=== PATIENT | female | born 1950 | race Caucasian/White ===

== ENCOUNTER → 2018-03-23 15:51 | Outpatient (CLI) | payer MEDICARE, OTHER, SELFPAY ==
--- NOTE | 2018-03-23 15:55 | BI_ITS ---
MAMMOGRAPHY - BILATERAL SCREENING REASON FOR EXAM: Female, 67 years old. Routine annual screening examination. PERTINENT HISTORY: Mother with breast cancer. Remote left excisional breast biopsy. TECHNIQUE: Digital bilateral breast tahir (3D mammographic acquisition) in the CC and MLO projections. 2-D mediolateral oblique (MLO) and craniocaudad (CC) views of both breasts were obtained. CAD: Full Field Digital Mammography with Computer Added Detection was performed. COMPARISON: Comparison is made with prior outside examination dated May 22, 2016. FINDINGS: Breast Composition: The breasts are heterogeneously dense, which may obscure small masses. There are no dominant masses or suspicious calcifications. Stable deformity of the right areola. Stable appearance of the small bilateral axillary lymph nodes. No other significant abnormalities are identified. There has been no significant change since the prior study. BI/SCREENING MAMM (CAD), BILAT IMPRESSION: Stable bilateral screening mammogram. Yearly follow-up mammogram recommended. (A) ASSESSMENT CATEGORY: BIRADS Category 2: Benign. A letter regarding these results will be sent to the patient by the facility within 30 days. Approximately 10% of breast cancers are not detected by mammography. A normal mammogram should not delay biopsy of a clinically suspicious abnormality. [id number] Electronically Signed: Sher Dhaliwal MD at 9:20 EDT Tel [phone], Service support ,
== END ==
PROVIDERS: Visit Provider Nurse Practitioner Women's Health
DX: Z12.31 Encounter for screening mammogram for malignant neoplasm of breast (principal)
CPT/HCPCS: 77063; 77067

== ENCOUNTER → 2019-03-31 13:21 | Outpatient (CLI) | payer MEDICARE, SELFPAY ==
[2019-03-01 10:42] VITALS: BMI 29.0
--- NOTE | 2019-03-31 13:23 | BI_ITS ---
MAMMOGRAPHY - BILATERAL SCREENING REASON FOR EXAM: Female, 68 years old. Routine annual screening examination. PERTINENT HISTORY: Mother with breast cancer. Remote left excisional breast biopsy. TECHNIQUE: Digital bilateral breast ruiz (3D mammographic acquisition) in the CC and MLO projections. 2-D mediolateral oblique (MLO) and craniocaudad (CC) views of both breasts were obtained. CAD: Full Field Digital Mammography with Computer Added Detection was performed. COMPARISON: Comparison is made with prior study dated March 23, 2018. FINDINGS: Breast Composition: The breasts are heterogeneously dense, which may obscure small masses. There are no dominant masses or suspicious calcifications. Stable appearance of the small bilateral axillary lymph nodes. No other significant abnormalities are identified. There has been no significant change since the prior study. BI/SCREEN MAMM (CAD) W/RUIZ BILAT IMPRESSION: Stable bilateral screening mammogram. Yearly follow-up mammogram recommended. (A) ASSESSMENT CATEGORY: BIRADS Category 2: Benign. A letter regarding these results will be sent to the patient by the facility within 30 days. Approximately 10% of breast cancers are not detected by mammography. A normal mammogram should not delay biopsy of a clinically suspicious abnormality. [id number] Electronically Signed: Sher Dhaliwal, at 14:53 EDT , Service support ,
== END ==
PROVIDERS: Referring Provider Nurse Practitioner Women's Health; Visit Provider Nurse Practitioner Women's Health
DX: Z12.31 Encounter for screening mammogram for malignant neoplasm of breast (principal)
CPT/HCPCS: 77063; 77067

== ENCOUNTER → 2019-05-09 16:00 | Outpatient (CLI) | payer MEDICARE, OTHER, SELFPAY ==
[2019-03-31 13:54] VITALS: BMI 29.0
--- NOTE | 2019-05-09 16:04 | BD_ITS ---
STUDY: DUAL ENERGY X-RAY ABSORPTIOMETRY / DXA REASON FOR EXAM: Female, 68 years old. The patient is postmenopausal. Loss of height. TECHNIQUE: Bone Mineral Density (BMD) measurements of lumbar spine and bilateral hips were obtained. COMPARISON: None. FINDINGS: Lumbar Spine (L1-L4): g/cm2 (1.127) / T-score (-0.6) / Z-score (1.0) Findings are suggestive of normal bone density with a low fracture risk. Left Femur Total: g/cm2 (0.977) / T-score (-0.2) / Z-score (1.0) Left Femoral Neck: g/cm2 (0.989) / T-score (-0.3) / Z-score (1.2) Right Femur Total: g/cm2 (0.944) / T-score (-0.5) / Z-score (0.8) Right Femoral Neck: g/cm2 (1.015) / T-score (0.2) / Z-score (1.4) BD/Dexa Bone Density Study IMPRESSION: The patient is considered normal as outlined below according to World Woo Organization (WHO) criteria with a low fracture risk. Reference Information: The T-score is the number of standard deviations above or below the standard which is normal for young adults at their peak bone mineral density. The World Health Organization (WHO) interprets the T-scores as follows: Above -1 Normal bone density Between -1 and -2.5 Osteopenia Equal to / or below -2.5 Osteoporosis As a practical clinical guideline, osteopenia may be graded as follows: Mild -1 through -1.5 Moderate -1.6 through -2.0 Severe -2.1 through -2.4 The Z-score is the number of standard deviations above or below age-matched controls. A Z-score of less than -1.5 would be considered abnormal. References: 1. NIH Osteoporosis and Related Bone Diseases http://www.osteo.org 2. International Society for Clinical Densitometry http://www.iscd.org 3. National Osteoporosis Foundation http://www.nof.org Electronically Signed: Sher Dhaliwal, at 15:42 EST , Service support ,
== END ==
PROVIDERS: Referring Provider Nurse Practitioner Women's Health; Visit Provider Nurse Practitioner Women's Health
DX: Z78.0 Asymptomatic menopausal state (principal)
CPT/HCPCS: 77080

== ENCOUNTER 2020-08-20 03:40 | Outpatient (RCR) | payer MEDICARE, OTHER, SELFPAY ==
[2019-03-31 13:54] VITALS: BMI 29.0
[2020-08-20] MEDS: COVID-19 VACC, MRNA(PFIZER)/PF 30 MCG/0.3 ML SYRINGE IM (16:58)
[2020-09-10] MEDS: COVID-19 VACC, MRNA(PFIZER)/PF 30 MCG/0.3 ML SYRINGE IM (16:42)
== END 2020-11-19 23:59 ==
LOC: IMMUN 03:40
PROVIDERS: Visit Provider Family Medicine
DX: Z23 Encounter for immunization (principal)
CPT/HCPCS: 0001A; 0002A; 91300

== ENCOUNTER → 2021-02-24 13:33 | Outpatient (CLI) | payer MEDICARE, OTHER, SELFPAY ==
--- NOTE | 2021-02-24 13:36 | BI_ITS ---
MAMMOGRAPHY - BILATERAL SCREENING REASON FOR EXAM: Female, 70 years old. Routine annual screening examination. PERTINENT HISTORY: Mother with breast cancer. Remote left excisional breast biopsy. TECHNIQUE: Digital bilateral breast ruiz (3D mammographic acquisition) in the CC and MLO projections. 2-D mediolateral oblique (MLO) and craniocaudad (CC) views of both breasts were obtained. CAD: Full Field Digital Mammography with Computer Added Detection was performed. COMPARISON: Comparison is made with prior study 03/31/2019 and 03/23/2018. FINDINGS: Breast Composition: The breasts are heterogeneously dense, which may obscure small masses. There are no dominant masses or suspicious calcifications. Stable small benign-appearing bilateral axillary lymph nodes. No other significant abnormalities are identified. There has been no significant change since the prior study. BI/SCRN MAMM (CAD)W/RUIZ BILAT IMPRESSION: Stable bilateral screening mammogram. Yearly follow-up mammogram recommended. (A) ASSESSMENT CATEGORY: BIRADS Category 2: Benign. A letter regarding these results will be sent to the patient by the facility within 30 days. Approximately 10% of breast cancers are not detected by mammography. A normal mammogram should not delay biopsy of a clinically suspicious abnormality. [id number] Electronically Signed: Sher Dhaliwal MD at 15:10 EDT , Service support ,
== END ==
PROVIDERS: Referring Provider Nurse Practitioner Women's Health; Visit Provider Nurse Practitioner Women's Health
DX: Z12.31 Encounter for screening mammogram for malignant neoplasm of breast (principal); Z80.3 Family history of malignant neoplasm of breast
CPT/HCPCS: 77063; 77067

== ENCOUNTER → 2022-04-22 | Outpatient (CLI) | payer MEDICARE, OTHER, SELFPAY ==
--- NOTE | 2022-04-22 15:27 | BI_ITS ---
MAMMOGRAPHY - BILATERAL SCREENING REASON FOR EXAM: Female, 71 years old. Routine annual screening examination. PERTINENT HISTORY: Mother with breast cancer. Remote left excisional breast biopsy. TECHNIQUE: Digital bilateral breast ruiz (3D mammographic acquisition) in the CC and MLO projections. 2-D mediolateral oblique (MLO) and craniocaudad (CC) views of both breasts were obtained. CAD: Full Field Digital Mammography with Computer Added Detection was performed. COMPARISON: Comparison is made with prior study dated 02/24/2021 and 03/31/2019. FINDINGS: Breast Composition: The breasts are heterogeneously dense, which may obscure small masses. There are no dominant masses or suspicious calcifications. Stable small benign appearing bilateral axillary lymph nodes. No other significant abnormalities are identified. There has been no significant change since the prior study. BI/SCRN MAMM (CAD)W/RUIZ BILAT IMPRESSION: Stable bilateral screening mammogram. Yearly follow-up mammogram recommended. (A) ASSESSMENT CATEGORY: BIRADS Category 2: Benign. A letter regarding these results will be sent to the patient by the facility within 30 days. Approximately 10% of breast cancers are not detected by mammography. A normal mammogram should not delay biopsy of a clinically suspicious abnormality. [id number] Electronically Signed: Sher Dhaliwal MD at 8:07 EST ,
== END | disposition home or self-care (01) ==
LOC: OPBI 15:26
PROVIDERS: Referring Provider Nurse Practitioner Women's Health; Visit Provider Nurse Practitioner Women's Health
DX: Z12.31 Encounter for screening mammogram for malignant neoplasm of breast (principal); Z80.3 Family history of malignant neoplasm of breast
CPT/HCPCS: 77063; 77067

== ENCOUNTER → 2022-04-27 | Outpatient (CLI) | payer MEDICARE, OTHER, SELFPAY ==
[2022-04-27 15:29] LABS: Absolute Lymphocyte Count 0.95 X10^3/uL (0.83-4.51); Absolute Neutrophil Count 2.8 X10^3/uL (2.0-7.7); Basophil# 0.04 X10^3/uL; Basophil% 0.9 % (0-1); Eosinophil# 0.19 X10^3/uL; Eosinophils% 4.4 % (0-5); Hematocrit 44.8 % (37-47); Hemoglobin 14.6 g/dL (12.0-15.0); Lymphocyte # 0.95 X10^3/ul (0.83-4.51); Lymphocyte % 22.1 % (19-41); Mean Corp Hgb Conc 32.6 g/dL (32-36); Mean Corpuscular Volume 104.4 fL (81-99); Mean Platelet Vol. 10.2 fl (6.2-12.0); Monocyte# 0.36 X10^3/uL; Monocyte% 8.4 % (0-10); NRBC Flagged by Analyzer 0 % (0-5); Neutrophil # 2.75 X10^3/uL (2.7-7.7); Platelet Count 208 K/mm3 (150-450); RBC Distribution Width CV 13.9 % (11.6-14.6); Red Blood Count 4.29 M/mm3 (4.2-5.4); White Blood Count 4.3 K/mm3 (4.4-11.0)
[2022-04-27 15:52] LABS: AST(SGOT) 71 U/L (15-37); Alanine Aminotransfer ALT/SGPT 66 U/L (13-56); Albumin, Serum 3.8 g/dL (3.2-5.0); Alkaline Phosphatase 84 U/L (45-117); Anion Gap 10 (5-15); BUN 9 mg/dL (7-18); Calcium,Total 9.2 mg/dL (8.5-10.1); Chloride 107 mmol/L (98-107); Cholesterol 249 mg/dL (200); EST Glomerular Filtration Rate 105 mL/min (>60); Est Glom Filt Rate - Afr Amer 128 mL/min (>60); Globulin 3.9 g/dL (2.2-4.2); Glucose 75 mg/dL (74-106); High Density Lipoprotein 61 mg/dL; Protein, Total 7.7 g/dL (6.4-8.2); Sodium Level 144 mmol/L (136-145); Thyroid Stim Hormone (TSH) 1.51 uIU/mL (0.358-3.74); Triglycerides 245 mg/dL; Very Low Density Lipoprotein 49 mg/dL (5-40)
== END | disposition home or self-care (01) ==
LOC: BIMLAB 14:17
PROVIDERS: PCP Internal Medicine; Referring Provider Internal Medicine; Visit Provider Internal Medicine
DX: I10 Essential (primary) hypertension (principal); F41.8 Other specified anxiety disorders
CPT/HCPCS: 36415; 80053; 80061; 84443; 85025

== ENCOUNTER 2022-07-06 04:39 | Emergency (ER) | payer MEDICARE, OTHER, SELFPAY ==
[2022-07-06 04:39] VITALS: BP 165/92; PULSE 81; RESP 18; TEMP 36.1; O2SAT 98; BMI 29.7
--- NOTE | 2022-07-06 04:47 | CT_ITS ---
STUDY: CT ABDOMEN AND PELVIS WITHOUT CONTRAST REASON FOR EXAM: Female, 71 years old. Pain RADIATION DOSAGE (If Supplied By Facility): CTDIvol = ( 8.57 ) mGy, DLP = ( 428.26 ) mGycm TECHNIQUE: Transaxial images were obtained from the dome of the diaphragm to the symphysis pubis without oral contrast, and without intravenous contrast. Sagittal and coronal images were reconstructed. Individualized dose optimization techniques were used for this CT. COMPARISON: None. FINDINGS: The visualized lung bases are unremarkable. The visualized portions of the heart are within normal limits. Normal liver. Normal gallbladder and extrahepatic biliary system. Normal spleen. Normal pancreas. Normal bilateral adrenal glands. Normal right kidney. Normal left kidney. Normal visualized stomach. Normal small intestine. Diverticulosis involving the distal descending and sigmoid colon. There is wall thickening and pericolonic inflammatory changes involving an 8 cm segment of the distal descending and proximal sigmoid colon compatible with acute diverticulitis, coronal images 55 through 68.. The appendix is visualized and appears normal. There is scattered atherosclerotic calcification of the abdominal aorta, without a demonstrated aneurysm. Normal inferior vena cava. Normal retroperitoneum. Intra-abdominal free air. Normal urinary bladder. Uterus grossly normal. No adnexal mass is seen. Normal abdominal wall. Normal osseous structures. CT/Abdomen/Pelvis without Cont IMPRESSION: Acute diverticulitis involving the distal descending and proximal sigmoid colon. No intra-abdominal free air. Recommend continued follow-up to exclude an underlying mass. N.B. : The above Results were Read Back by Patrick Desouza MD to Miguel Burk MD, and understanding confirmed on 07/06/2022 05:53:14 (ET). Electronically Signed: Patrick Desouza MD at 5:59 EST Reading Location ID and State: [id number] / , Service support ,
--- NOTE | 2022-07-06 04:48 | ED.VIS.GI ---
HPI HPI - GI History of Present Illness Chief Complaint: Abd Pain Informant: patient Narrative Narrative: I had a history of waxing waning lower abdominal pain. Pain increased in the evening. Pain more in the left lower quadrant. No abdominal surgeries. Decreased bowel movements. Nonbloody. No fevers. No nausea or vomiting. Colonoscopy 7 years ago with polypectomy. Denies history of diverticulitis. Denies urinary symptoms. Denies any fevers. States symptoms worsen was walking around or laying on the left side. Prior similar symptoms: No PFSH PFSH Medical History (Updated 07/06/22 @ 06:[address] Miguel Burk, DO) Abnormal mammogram Home Medications calcium carbonate 600 mg calcium (1,500 mg) tablet (Calcium) 600 mg PO BID 03/23/18 [History Last Taken Unknown] estradiol 0.01% (0.1 mg/gram) vaginal cream (Estrace) See Rx Instructions vaginal .COMPLEX #42.5 grams 03/31/19 [Rx Last Taken Unknown] dupilumab 200 mg/1.14 mL subcutaneous pen injector (Dupixent) 200 mg subcut Q2W 02/11/21 [History Last Taken Unknown] triamcinolone acetonide 0.025 % topical cream 1 applic topical DAILY 02/11/21 [History Last Taken Unknown] blood pressure monitor #1 ea 04/27/22 [Rx Last Taken Unknown] hydroxyzine HCl 10 mg tablet 10 mg PO TID PRN anxiey #20 tabs 04/27/22 [Rx Last Taken Unknown] atorvastatin 10 mg tablet (Lipitor) 10 mg PO QHS #90 tabs 05/25/22 [Rx Last Taken Unknown] lisinopril 5 mg tablet 5 mg PO DAILY #90 tabs 06/26/22 [Rx Last Taken Unknown] cefdinir 300 mg capsule 300 mg PO BID #19 caps 07/06/22 [Rx Last Taken Unknown] hydrocodone-acetaminophen 5-325mg 5mg-325mg 1 tab PO Q6H PRN pain 3 days #12 tabs 07/06/22 [Rx Last Taken Unknown] metronidazole 500 mg tablet 500 mg PO TID #29 tabs 07/06/22 [Rx Last Taken Unknown] Allergy/AdvReac Type Severity Reaction Status Date / Time No Known Allergies Allergy Verified 07/06/22 04:42 Family History Mother Breast cancer Father Cancer liver Brother Skin cancer Surgical History H/O breast biopsy Social History adopted: No household members: none housing: house number of children: 1 current occupational status: retired current occupation: worked for a [employer] current occupational exposures/hazards: No pets and animals: Yes history of recent travel: Yes out of country: Yes Smoking Status: Former smoker quit date: 06/14/01 pack-years: 32 Electronic Cigarette Use: not used second hand exposure: No alcohol intake: current alcohol intake frequency: a few times a week substance use type: does not use caffeine: No what type of physical activity do you participate in: none seatbelt use: always do you feel safe at home: Yes additional social history: Single ROS ROS ED Constitutional Constitutional ED: Denies chills, fever(s) or sweats Eyes Eyes: Denies change in vision ENT ENT ED: Denies dysphagia or sore throat Cardiovascular Cardiovascular: Denies chest pain, leg edema, palpitations or racing heartbeat Respiratory/Chest Respiratory/Chest: Denies cough, dyspnea or dyspnea on exertion Gastrointestinal Gastrointestinal: Reports abdominal pain; Denies diarrhea, nausea or vomiting Genitourinary Genitourinary ED: Denies dysuria, hematuria or urinary frequency Musculoskeletal Musculoskeletal: Denies back pain, extremity pain or neck pain Integumentary Denies rash or wounds Neurologic Neurologic: Denies headache(s), paresthesias or weakness EXAM Physical Exam Const Vital Signs: 07/06/22 04:39 Temperature 96.9 F L Temperature Source Temporal Pulse Rate 81 Respiratory Rate 18 Blood Pressure 165/92 H Blood Pressure Mean 116 Pulse Ox 98 Oxygen Delivery Method Room Air Positive well nourished and well developed General Appearance ED: well developed and NAD HEENT Reports moist mucous membranes normocephalic and atraumatic Eyes PERRL, EOMs intact bilaterally and conjunctivae normal General Eye ED: Yes normal appearance of both eyes Neck no lymphadenopathy and supple General: Negative for tenderness Chest Wall Chest: Negative for tenderness Resp normal respiratory effort and normal air movement Effort and Inspection: symmetric chest movement; Negative for respiratory distress Cardio regular rate, regular rhythm and no murmurs Peripheral Pulses: pulses 2+ throughout GI normal to inspection, nondistended, normoactive bowel sounds GI Narrative: Minimal tenderness lower abdomen, no specific reproducible location. No guarding or rebound. No rash in the area. Palpation: Negative for guarding or rebound tenderness present Back/Spine no CVA tenderness and no thoracic nor lumbar tenderness Extremity normal to inspection General Extremety ED: Negative for edema or tenderness General Extremity: Negative for edema Neuro oriented x3 and no sensory deficits noted Sensorium / Orientation: awake and alert Skin no rashes or lesions noted and no wounds MDM MDM MDM Narrative Medical decision making narrative: Persistent waxing waning lower abdominal pain. Nonsurgical abdomen on exam. Differential likely diverticulitis versus shingles pain, lower clinical suspicion for any volvulus or appendicitis. Abdominal mass in the differential however no palpation of any firm masses. Patient declines any medications abdominal labs ordered fluids. Will order CT scan abdomen pelvis for further evaluation. 0630: Abdominal laboratory reviewed by myself normal white count at 10 normal lipase and liver enzymes creatinine 0.82. CT scan abdomen pelvis in discussion with radiologist and reviewed by myself distal descending sigmoid diverticulitis. There is no microperforation or free air. Patient clinically stable on reevaluation nonsurgical abdomen. She is started on Omnicef and Flagyl. She does not drink alcohol. She would like pain medicines at night to help her sleep. Additional prescription for [place] for which she is tolerated in the past. Strict return precautions otherwise she is given follow-up with GI as an outpatient. All questions were answered. Lab Data Attestation: I reviewed the patient's lab results. Labs: Laboratory Results - last 24 hr 07/06/22 07/06/22 04:50 04:50 WBC 10.0 RBC 4.68 Hgb 14.5 Hct 44.4 MCV 94.9 MCH 31.0 MCHC 32.7 RDW Std Deviation 44.7 H RDW Coeff of [place] 12.7 Plt Count 251 MPV 10.6 Immature Gran % (Auto) 0.400 Neut % (Auto) 75.3 H Lymph % (Auto) 13.4 L [place] % (Auto) 8.6 Eos % (Auto) 2.0 Baso % (Auto) 0.3 Absolute Neuts (auto) 7.5 Absolute Lymphs (auto) 1.34 Nucleated RBC % 0 Sodium 138 Potassium 3.7 Chloride 105 Carbon Dioxide 24.0 Anion Gap 9 BUN 8 Creatinine 0.82 Estim Creat Clear Calc 58.26 Est GFR (MDRD) Af Amer 88 Est GFR (MDRD) Non-Af 73 BUN/Creatinine Ratio 9.7 L Glucose 117 H Calcium 9.4 Total Bilirubin 1.10 H AST 7 L ALT 15 Alkaline Phosphatase 80 Total Protein 7.4 Albumin 3.4 Globulin 4.0 Albumin/Globulin Ratio 0.8 L Lipase 215 Radiography Diagnostic Testing: Clinical Impression(s) from Imaging Studies Abdomen/Pelvis CT 07/06/22 04:47 IMPRESSION: Acute diverticulitis involving the distal descending and proximal sigmoid colon. No intra-abdominal free air. Recommend continued follow-up to exclude an underlying mass. N.B. : The above Results were Read Back by Patrick Desouza MD to Miguel Burk MD, and understanding confirmed on 07/06/2022 05:53:14 (ET). Electronically Signed: Patrick Desouza MD at 5:59 EST Reading Location ID and State: [place] / , Service support , ADDENDUM: 07/06/22 0606 IMPRESSION: Acute diverticulitis involving the distal descending and proximal sigmoid colon. No intra-abdominal free air. Recommend continued follow-up to exclude an underlying mass. N.B. : The above Results were Read Back by Patrick Desouza MD to Miguel Burk MD, and understanding confirmed on 07/06/2022 05:53:14 (ET). Electronically Signed: Patrick Desouza MD at 5:59 EST Reading Location ID and State: [id number] / , Service support , Discharge Plan Triage Chief Complaint: Abd Pain ED Provider: Miguel Burk Dx/Rx/DC Orders Clinical Impression: Sigmoid diverticulitis, Abdominal pain, LLQ Instructions: Diverticulitis Dc Prescriptions: New hydrocodone-acetaminophen 5-325 mg tablet 1 tab PO Q6H PRN (Reason: pain) 3 Days Qty: 12 0RF metronidazole 500 mg tablet 500 mg PO TID Qty: 29 0RF cefdinir 300 mg capsule 300 mg PO BID Qty: 19 0RF No Action calcium carbonate [Calcium 600] 600 mg calcium (1,500 mg) tablet 600 mg PO BID estradiol [Estrace] 0.01 % (0.1 mg/gram) cream See Rx Instructions Vaginal .COMPLEX Qty: 42.5 2RF Dose Instruction: pea sized amount VAGINAL every other day X 4 weeks then twice a week; Rx Instructions: pea sized amount VAGINA twice a week; triamcinolone acetonide 0.025 % cream 1 applic topical DAILY Dupixent Pen 200 mg/1.14 mL pen injector 200 mg subcut Q2W hydroxyzine HCl 10 mg tablet 10 mg PO TID PRN (Reason: anxiey) Qty: 20 0RF (DME) blood pressure monitor Kit See Rx Instructions .Route Qty: 1 0RF Rx Instructions: As directed atorvastatin [Lipitor] 10 mg tablet 10 mg PO QHS Qty: 90 1RF lisinopril 5 mg tablet 5 mg PO DAILY Qty: 90 1RF Primary Care Provider: Hermila Macario Referrals: Hermila Macario MD [Primary Care Provider] - 1 Week Hudson Wade DO [Med Staff - Active Staff] - 1-2 Weeks Activity Restrictions/Additional Instructions: Distal colon and sigmoid diverticulitis no perforations. Labs are stable. Take medications as prescribed and finish the antibiotics. Return if worsening symptoms otherwise follow-up with GI for outpatient colonoscopy in the near future. Disposition Disposition: Home, Self Care
[2022-07-06 04:58] LABS: Absolute Lymphocyte Count 1.34 X10^3/uL (0.83-4.51); Absolute Neutrophil Count 7.5 X10^3/uL (2.0-7.7); Basophil# 0.03 X10^3/uL; Basophil% 0.3 % (0-1); Hematocrit 44.4 % (37-47); Hemoglobin 14.5 g/dL (12.0-15.0); Lymphocyte # 1.34 X10^3/ul (0.83-4.51); Lymphocyte % 13.4 % (19-41); Mean Corp Hgb Conc 32.7 g/dL (32-36); Mean Corpuscular Volume 94.9 fL (81-99); Mean Platelet Vol. 10.6 fl (6.2-12.0); Monocyte# 0.86 X10^3/uL; Monocyte% 8.6 % (0-10); NRBC Flagged by Analyzer 0 % (0-5); Neutrophil # 7.52 X10^3/uL (2.7-7.7); Neutrophil % 75.3 % (47-70); Platelet Count 251 K/mm3 (150-450); RBC Distribution Width CV 12.7 % (11.6-14.6); RBC Distribution Width SD 44.7 fl (35.1-43.9); Red Blood Count 4.68 M/mm3 (4.2-5.4)
[2022-07-06] MEDS: 0.9% Normal Saline 1,000 ML 125 ML IV (05:00)
[2022-07-06 05:23] LABS: ALB/GLOB Ratio 0.8 RATIO (0.9-2.4); AST(SGOT) 7 U/L (15-37); Alanine Aminotransfer ALT/SGPT 15 U/L (13-56); Albumin, Serum 3.4 g/dL (3.2-5.0); Alkaline Phosphatase 80 U/L (45-117); Anion Gap 9 (5-15); BUN 8 mg/dL (7-18); BUN/Creat Ratio 9.7 RATIO (10-20); Calcium,Total 9.4 mg/dL (8.5-10.1); Chloride 105 mmol/L (98-107); Creatinine, Serum 0.82 mg/dL (0.55-1.02); EST Glomerular Filtration Rate 73 mL/min (>60); Est Glom Filt Rate - Afr Amer 88 mL/min (>60); Estimated Creatinine Clearance 58.26 ml/min; Glucose 117 mg/dL (74-106); Lipase 215 U/L (73-393); Potassium 3.7 mmol/L (3.5-5.1); Protein, Total 7.4 g/dL (6.4-8.2); Sodium Level 138 mmol/L (136-145)
[2022-07-06] MEDS: metroNIDAZOLE 500 MG Tablet PO (06:34)
[2022-07-06] MEDS: Cefdinir 300 MG Capsule PO (06:35)
[2022-07-06 06:38] VITALS: BP 136/89; PULSE 84; RESP 15; O2SAT 95
== END 2022-07-06 06:41 | disposition home or self-care (01) ==
PROVIDERS: Emergency Provider Emergency Medicine; PCP Internal Medicine; Visit Provider Emergency Medicine
DX: K57.32 Diverticulitis of large intestine without perforation or abscess without bleeding (principal); R10.32 Left lower quadrant pain; Z87.891 Personal history of nicotine dependence
CPT/HCPCS: 74176; 80053; 83690; 85025; 96360; 96361; 99283; J7030

== ENCOUNTER 2022-07-10 09:56 | Emergency (ER) | payer MEDICARE, OTHER, SELFPAY ==
[2022-07-10 09:57] VITALS: BP 125/104; PULSE 98; RESP 14; TEMP 36.4; O2SAT 98; BMI 31.6
--- NOTE | 2022-07-10 10:14 | ED.VIS.GI ---
HPI HPI - GI History of Present Illness Chief Complaint: Diarrhea Informant: patient Abdominal Pain/Flank Pain Onset: Days Context: Gradual Onset Timing: Continuous Nausea/Vomiting/Emesis GI Symptom: Negative for Nausea or Vomiting Diarrhea/Melena/Hematochezia GI Symptom: Positive for Diarrhea; Negative for Melena or Hematochezia Associated Symptoms Associated Symptoms: Negative for Dysuria, Frequency or Hematuria Narrative Narrative: Patient'[id number] female history of diverticulosis and hypertension. On Wednesday was diagnosed here with diverticulitis by CAT scan. Had unremarkable labs. Was started on Omnicef and Flagyl. Patient has had significant diarrhea the last several days. Almost every 20 minutes. No melena. No fever. Nausea and vomiting resolved earlier in the week. Denies any further fevers. No melena or hematemesis. States she has not had much of an appetite but is drinking fluids. States the pain in her left lower quadrant has resolved. Prior similar symptoms: No Recent Illness/Hospitalization: No PFSH [facility] Medical History (Updated 07/10/22 @ 10:[address] Octavio Garcia MD) Abnormal mammogram Home Medications calcium carbonate 600 mg calcium (1,500 mg) tablet (Calcium) 600 mg PO BID 03/23/18 [History Last Taken Unknown] estradiol 0.01% (0.1 mg/gram) vaginal cream (Estrace) See Rx Instructions vaginal .COMPLEX #42.5 grams 03/31/19 [Rx Last Taken Unknown] dupilumab 200 mg/1.14 mL subcutaneous pen injector (Dupixent) 200 mg subcut Q2W 02/11/21 [History Last Taken Unknown] triamcinolone acetonide 0.025 % topical cream 1 applic topical DAILY 02/11/21 [History Last Taken Unknown] blood pressure monitor #1 ea 04/27/22 [Rx Last Taken Unknown] hydroxyzine HCl 10 mg tablet 10 mg PO TID PRN anxiey #20 tabs 04/27/22 [Rx Last Taken Unknown] atorvastatin 10 mg tablet (Lipitor) 10 mg PO QHS #90 tabs 05/25/22 [Rx Last Taken Unknown] lisinopril 5 mg tablet 5 mg PO DAILY #90 tabs 06/26/22 [Rx Last Taken Unknown] cefdinir 300 mg capsule 300 mg PO BID #19 caps 07/06/22 [Rx Last Taken Unknown] hydrocodone-acetaminophen 5-325mg 5mg-325mg 1 tab PO Q6H PRN pain 3 days #12 tabs 07/06/22 [Rx Last Taken Unknown] metronidazole 500 mg tablet 500 mg PO TID #29 tabs 07/06/22 [Rx Last Taken Unknown] Allergy/AdvReac Type Severity Reaction Status Date / Time No Known Allergies Allergy Verified 07/10/22 09:57 Family History Mother Breast cancer Father Cancer liver Brother Skin cancer Surgical History H/O breast biopsy Social History adopted: No household members: none housing: house number of children: 1 current occupational status: 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 Review of Systems ROS Unobtainable: Denies due to encephalopathy Constitutional Constitutional ED: Denies chills or fever(s) ENT ENT ED: Denies ear pain Cardiovascular Cardiovascular: Denies chest pain Respiratory/Chest Respiratory/Chest: Denies cough or dyspnea Gastrointestinal Gastrointestinal: Reports diarrhea; Denies abdominal pain, constipation, melena, nausea or vomiting Genitourinary Genitourinary ED: Denies dysuria or hematuria Integumentary Denies abscess Neurologic Neurologic: Denies headache(s) Psychiatric Psychiatric: Denies anxiety Endocrine Endocrinology: Denies polydipsia Hematologic/Lymphatic Hematologic/Lymphatic: Denies easy bleeding Allergic/Immunologic Allergic/Immunologic ED: Denies mouth swelling or tongue swelling EXAM Physical Exam Narrative Exam Narrative: Well-appearing 71-year-old female. Vital signs are stable and afebrile. H EENT exam unremarkable. Neck nontender. Lungs clear to auscultation. Heart regular rhythm rate about 98 no murmur. Abdomen soft nontender normal bowel sounds no peritoneal signs. Moving all 4 extremities. Calves are nontender with edema. Neurologically she is awake and alert with no focal motor deficits. Clinically patient looks well. Const Vital Signs: 07/10/22 09:57 Temperature 97.6 F L Temperature Source Temporal Pulse Rate 98 Respiratory Rate 14 Blood Pressure 125/104 H Blood Pressure Mean 111 Pulse Ox 98 Oxygen Delivery Method Room Air Positive well nourished and well developed; Negative for cachectic, contractures or unkempt General Appearance ED: well developed and NAD; Negative for unkempt, cachectic, contractures or pallor Nutritional Appearance: Negative for cachectic HEENT Reports moist mucous membranes normocephalic and atraumatic; Negative for trauma or tenderness Eyes PERRL and EOMs intact bilaterally General Eye ED: Negative for pale conjunctiva or scleral icterus Neck No no lymphadenopathy, supple and no JVD General: Negative for tenderness Lymph Lymphatic: Negative for other Resp normal respiratory effort and clear to auscultation bilaterally Effort and Inspection: Negative for respiratory distress Auscultation: Negative for rales, rhonchi or wheezes Cardio regular rate, regular rhythm, S1 normal heart sound, S2 normal heart sound and no murmurs Rate: Negative for bradycardia or tachycardic Rhythm: Negative for abnormal rhythm GI non-tender, non-distended and no masses Inspection: Negative for abdominal distention Palpation: soft; Negative for tender, guarding or rigid Back/Spine no CVA tenderness General Back: Negative for CVA tenderness Cervical Spine: Negative for cervical spine tenderness Thoracic Spine / Upper Back: Negative for thoracic spinal tenderness Lumbar Spine / Lower Back: Negative for lumbar spinal tenderness Coccyx: Negative for other Extremity full ROM General Extremety ED: Negative for edema or tenderness General Extremity: Negative for edema Neuro CN's II-XII intact bilaterally and moves all extremities Sensorium / Orientation: alert, oriented to person, oriented to place and oriented to time; Negative for orientation impaired, confused, lethargic or stuporous Motor Exam: strength 5/5 throughout Psych mental status grossly normal and thought process normal Appearance: Negative for unkempt Attitude: No agitated Mood & Affect: Negative for depressed or anxious Skin no wounds General Skin Exam: Negative for jaundice or pallor Lesions: no lesions and No lesion noted Rashes: no rashes and No rashes noted Trauma: Negative for abrasion MDM MDM MDM Narrative Medical decision making narrative: 71-year-old female diagnosed with diverticulitis on Wednesday. Has been on Omnicef and Flagyl and is improving. She has had diarrhea the last several days. Clinically I think this is most likely just a side effect of the antibiotics and being treated for diverticulitis. He clinically looks well. Should be treated with IV fluids. I will obtain screening labs of CBC and chemistry. We will obtain a C. difficile if she has a bowel movement here. She is only had 1 today. Clinically I do not think this is C. difficile. Repeat exam at 12:16 PM patient doing well. She has had no bowel movement or diarrhea the entire time she is here. She does not feel like she can have one at this time. Hence we will not send a stool sample. We discussed her labs. Her potassium should improve as the diarrhea resolves. She will continue her current antibiotics for her diverticulitis. Follow-up with her primary care physician. Return if worse. She was treated with a liter of fluid here. Lab Data Attestation: I reviewed the patient's lab results. Lab results narrative: CBC normal white count of 6.9. H&H of 13.8 and 42. Platelets 215. Electrolytes show potassium of 3.1 consistent with her diarrhea. Gap of 16. Normal BUN and creatinine 13 and 0.7 glucose of 77. These are consistent with her prior labs. I did review her old records. Labs: Laboratory Results - last 24 hr 07/10/22 07/10/22 10:30 10:30 WBC 6.9 RBC 4.46 Hgb 13.8 Hct 42.1 MCV 94.4 MCH 30.9 MCHC 32.8 RDW Std Deviation 45.0 H RDW Coeff of [place] 13.0 Plt Count 215 MPV 10.3 Immature Gran % (Auto) 0.400 Neut % (Auto) 80.8 H Lymph % (Auto) 4.6 L [place] % (Auto) 7.1 Eos % (Auto) 6.8 H Baso % (Auto) 0.3 Absolute Neuts (auto) 5.6 Absolute Lymphs (auto) 0.32 L Nucleated RBC % 0 Differential Comment SCANNED Sodium 136 Potassium 3.1 L Chloride 98 Carbon Dioxide 22.0 Anion Gap 16 H BUN 13 Creatinine 0.70 Estim Creat Clear Calc 47.78 Est GFR (MDRD) Af Amer 106 Est GFR (MDRD) Non-Af 88 BUN/Creatinine Ratio 18.6 Glucose 77 Calcium 8.9 Discharge Plan Triage Chief Complaint: Diarrhea ED Provider: Octavio Garcia Dx/Rx/DC Orders Clinical Impression: Diarrhea, History of diverticulitis Instructions: Treating Diarrhea, ED Diverticulitis Prescriptions: No Action calcium carbonate [Calcium 600] 600 mg calcium (1,500 mg) tablet 600 mg PO BID estradiol [Estrace] 0.01 % (0.1 mg/gram) cream See Rx Instructions Vaginal .COMPLEX Qty: 42.5 2RF Dose Instruction: pea sized amount VAGINAL every other day X 4 weeks then twice a week; Rx Instructions: pea sized amount VAGINA twice a week; triamcinolone acetonide 0.025 % cream 1 applic topical DAILY Dupixent Pen 200 mg/1.14 mL pen injector 200 mg subcut Q2W hydroxyzine HCl 10 mg tablet 10 mg PO TID PRN (Reason: anxiey) Qty: 20 0RF (DME) blood pressure monitor Kit See Rx Instructions .Route Qty: 1 0RF Rx Instructions: As directed atorvastatin [Lipitor] 10 mg tablet 10 mg PO QHS Qty: 90 1RF hydrocodone-acetaminophen 5-325 mg tablet 1 tab PO Q6H PRN (Reason: pain) 3 Days Qty: 12 0RF metronidazole 500 mg tablet 500 mg PO TID Qty: 29 0RF cefdinir 300 mg capsule 300 mg PO BID Qty: 19 0RF lisinopril 5 mg tablet 5 mg PO DAILY Qty: 90 1RF Primary Care Provider: Hermila Macario Referrals: Hermila Macario MD [Primary Care Provider] - 3-5 Days if not improving Activity Restrictions/Additional Instructions: Plenty of fluids and rest. [id number] probiotic and/or yogurt to help replace the normal bacteria in your colon. Follow-up with your doctor if not improving. Continue and finish the antibiotics. Your potassium should improve as you start eating more. If you have continued diarrhea it will need to be rechecked. It was just below normal today at 3.1. Disposition Disposition: Home, Self Care
[2022-07-10 10:34] LABS: Absolute Lymphocyte Count 0.32 X10^3/uL (0.83-4.51); Absolute Neutrophil Count 5.6 X10^3/uL (2.0-7.7); Basophil# 0.02 X10^3/uL; Basophil% 0.3 % (0-1); Eosinophil# 0.47 X10^3/uL; Eosinophils% 6.8 % (0-5); Hematocrit 42.1 % (37-47); Hemoglobin 13.8 g/dL (12.0-15.0); Lymphocyte # 0.32 X10^3/ul (0.83-4.51); Lymphocyte % 4.6 % (19-41); Mean Corp Hgb Conc 32.8 g/dL (32-36); Mean Corpuscular Hgb 30.9 pg (27.0-32.0); Mean Corpuscular Volume 94.4 fL (81-99); Mean Platelet Vol. 10.3 fl (6.2-12.0); Monocyte# 0.49 X10^3/uL; Monocyte% 7.1 % (0-10); NRBC Flagged by Analyzer 0 % (0-5); Neutrophil # 5.56 X10^3/uL (2.7-7.7); Neutrophil % 80.8 % (47-70); POSITIVE DIFFERENTIAL YES; Platelet Count 215 K/mm3 (150-450); Red Blood Count 4.46 M/mm3 (4.2-5.4); White Blood Count 6.9 K/mm3 (4.4-11.0)
[2022-07-10] MEDS: 0.9% Normal Saline 1,000 ML 1000 ML IV (10:35)
[2022-07-10 10:38] LABS: Differential Indicated SCAN CRITERIA MET
[2022-07-10 10:52] LABS: Anion Gap 16 (5-15); BUN 13 mg/dL (7-18); BUN/Creat Ratio 18.6 RATIO (10-20); Calcium,Total 8.9 mg/dL (8.5-10.1); Chloride 98 mmol/L (98-107); EST Glomerular Filtration Rate 88 mL/min (>60); Est Glom Filt Rate - Afr Amer 106 mL/min (>60); Estimated Creatinine Clearance 47.78 ml/min; Glucose 77 mg/dL (74-106); Potassium 3.1 mmol/L (3.5-5.1); Sodium Level 136 mmol/L (136-145)
[2022-07-10 11:09] LABS: Differential Comment SCANNED
[2022-07-10 12:29] VITALS: BP 127/83; PULSE 64; RESP 15; O2SAT 95
== END 2022-07-10 12:30 | disposition home or self-care (01) ==
PROVIDERS: Emergency Provider Emergency Medicine; PCP Internal Medicine; Visit Provider Emergency Medicine
DX: R19.7 Diarrhea, unspecified (principal); I10 Essential (primary) hypertension; Z79.2 Long term (current) use of antibiotics; Z87.891 Personal history of nicotine dependence; K57.92 Diverticulitis of intestine, part unspecified, without perforation or abscess without bleeding
CPT/HCPCS: 80048; 85025; 96360; 99283; J7030; A4216

== ENCOUNTER → 2022-09-23 | Outpatient (CLI) | payer MEDICARE, OTHER, SELFPAY ==
[2022-09-23 16:50] LABS: ALB/GLOB Ratio 1.2 RATIO (0.9-2.4); AST(SGOT) 12 U/L (15-37); Alanine Aminotransfer ALT/SGPT 14 U/L (13-56); Albumin, Serum 3.6 g/dL (3.2-5.0); Alkaline Phosphatase 70 U/L (45-117); Anion Gap 3 (5-15); BUN 12 mg/dL (7-18); BUN/Creat Ratio 16.7 RATIO (10-20); Calcium,Total 9.4 mg/dL (8.5-10.1); Chloride 111 mmol/L (98-107); Cholesterol 136 mg/dL (200); Creatinine, Serum 0.72 mg/dL (0.55-1.02); EST Glomerular Filtration Rate 85 mL/min (>60); Est Glom Filt Rate - Afr Amer 103 mL/min (>60); Globulin 2.9 g/dL (2.2-4.2); Glucose 107 mg/dL (74-106); High Density Lipoprotein 40 mg/dL; Potassium 3.7 mmol/L (3.5-5.1); Protein, Total 6.5 g/dL (6.4-8.2); Sodium Level 143 mmol/L (136-145); Triglycerides 133 mg/dL; Very Low Density Lipoprotein 27 mg/dL (5-40)
== END | disposition home or self-care (01) ==
LOC: BIMLAB 14:50
PROVIDERS: PCP Internal Medicine; Referring Provider Internal Medicine; Visit Provider Internal Medicine
DX: I10 Essential (primary) hypertension (principal); E78.2 Mixed hyperlipidemia; R19.7 Diarrhea, unspecified; R74.8 Abnormal levels of other serum enzymes
CPT/HCPCS: 36415; 80053; 80061

== ENCOUNTER → 2022-09-28 | Outpatient (CLI) | payer MEDICARE, OTHER, SELFPAY ==
[2022-09-30 14:09] LABS: Giardia Lamblia, Stool EIA Negative (Negative)
[2022-10-02 15:08] LABS: Calprotectin, Stool 600 ug/g (0-120)
== END | disposition home or self-care (01) ==
LOC: LABSPEC 14:47
PROVIDERS: PCP Internal Medicine; Visit Provider Internal Medicine
DX: R19.7 Diarrhea, unspecified (principal); K58.9 Irritable bowel syndrome, unspecified
CPT/HCPCS: 83993; 87329; 87493; 87506

== ENCOUNTER → 2022-10-20 | Outpatient (CLI) | payer MEDICARE, OTHER, SELFPAY | END | disposition home or self-care (01) | LOC: LABSPEC 10:40 | PROVIDERS: PCP Internal Medicine; Visit Provider Internal Medicine | DX: R19.7 Diarrhea, unspecified (principal) | CPT/HCPCS: 87493 ==

== ENCOUNTER 2023-01-11 05:19 | Day surgery (SDC) | payer MEDICARE, OTHER, SELFPAY ==
[2023-01-11] VITALS (7 sets, daily range): BP systolic 77–122; BP diastolic 43–82; PULSE 58–75; RESP 16–18; TEMP 36.1–36.7; O2SAT 96–100; BMI 26.4
--- NOTE | 2023-01-11 | COLBX_PTH ---
PATIENT: REJI GARRETT LOC: EN U#:[id number] AGE/SX: 72/F ROOM: RE01/11/[address]: Dr. Hudson Wade DO : 1950 BED: DIS: 01/11/2023 SPEC #: [id number] RECD: 01/11/23 10:52 STATUS: UMAIR KALEB #: [id number] ELOISE: 01/11/23 00:[address]: Hudson Wade DEPT: SURGICAL PATHOLOGY RECD BY: Aryan Fox ENTERED: 01/11/23 10:53 SP TYPE: COLON BX IBETH DR: Dr. Hermila Macario MD Tissues: A - COLON BIOPSY B - COLON BIOPSY Procedures: Surgery Specimen Level IV HEADER OPERATION: Colonoscopy (MAC) with biopsies PRE-OP DIAGNOSIS: C. difficile colitis, diverticula of colon TISSUE SUBMITTED: A - Hepatic flexure, b - Random colon in the sigmoid MICROSCOPIC DIAGNOSIS A. Hepatic flexure, biopsy: A fragment of colonic mucosa, no pathologic diagnosis. B. Sigmoid colon, random biopsy: Fragments of colonic mucosa, no pathologic diagnosis. MARCIANO:asiya 01/12/2023 MICROSCOPIC DESCRIPTION Slides are reviewed. GROSS DESCRIPTION A - Received in fixative is one container labeled with the patient's name and designated hepatic flexure. The specimen consists of one irregular fragment of light rodriguez soft tissue that measures 0.6 x 0.2 x 0.1 cm. The specimen is totally submitted in one cassette. B - Received in fixative is one container labeled with the patient's name and designated random colon in the sigmoid. The specimen consists of multiple irregular fragments of light rodriguez soft tissue that in aggregate measure 1.5 x 0.5 x 0.1 cm. The specimen is totally submitted in one cassette. / MARCIANO:asiya 01/11/2023 TC:4 CPT: 08478 x2
[2023-01-11] MEDS: Lactated Ringers 1,000 ML 15 ML IV (05:58)
--- NOTE | 2023-01-11 06:25 | PCM.HP.BLA ---
History and Physical Date of Admission: 01/11/23 Chief Complaint: C diff Details: REJI GARRETT, is a 72 F who presents to the office today to establish with Gastroenterology for recurrent C difficile colitis. Diarrhea started after starting antibiotics for diverticulitis in 06/2022. This was her only bout of diverticulitis. Diarrhea resolved with treatment of C diff in 09/2022, then returned 3 days after completing antibiotic. Now taking vancomycin qid x 10 days, started it two days ago, diarrhea persists. Still poor appetite so not eating much, is losing weight. Dificid was cost prohibitive. She hasn't had any abd pain since the treatment for diverticulitis. No melena or hematochezia. She is tired. No nausea, vomiting, heartburn, dysphagia. ED visit in 06/[address], treated with omnicef and flagyl. Had presented with abd pain. 06/2022 CT: acute diverticulitis in distal descending and proximal sigmoid colon 09/2022 +C diff, neg enteric pathogens, neg giardia 10/2022 +C diff Colonoscopy approx 7 yrs ago, had polyps, was done at [facility] Quit drinking alcohol last year ROS Const Constitutional: No fatigue, fever(s), headache(s), weight change (loss), sleep problems, abnormal sleep pattern or change in appetite ENT ENT: No headache(s), difficulty swallowing, hoarseness or sore throat Resp Respiratory: No cough, hemoptysis or shortness of breath Cardio Cardiology: No chest pain at rest or generalized swelling Gastro GI: Positive for change in bowel habits and diarrhea; No abdominal pain, belching, bloating, change in stool character, coffee ground emesis, constipation, cramping, heartburn, difficulty swallowing, feeling full early, excessive flatus, incontinent of stools, Vomiting blood/hematemesis, Blood in stool, loose stools, Black,tarry stools, nausea/dyspepsia, pain with swallowing or vomiting Musc Musculoskeletal: No joint pain, back pain, joint swelling, numbness or tingling Skin Skin: No itchy eyes or rash Neuro Neurology: No behavioral changes, confusion, headache(s), numbness or tingling Psych Psychiatric: No abnormal sleep pattern, No anxiety, No behavioral changes, No change in appetite, No confusion and No depression Endo Endocrine: No cold intolerance, fatigue, heat intolerance, increased thirst/drinking or weight change (loss) Aller/Imm Allergy/Immunologic: No food intolerance or itchy eyes Mark/Lymp Hematologic/Lymphatic: No easy bleeding, easy bruising or enlarged lymph nodes Exam Const General: cooperative, healthy appearing and comfortable Nutritional Appearance: average body habitus Orientation: alert, awake and oriented x3 HENMT Head: normal to inspection Eyes Sclera: sclerae normal Resp Effort & Inspection: normal respiratory effort GI Inspection: normal to inspection Palpation: soft, no hepatosplenomegaly, no masses and nontender Skin General: no rashes or lesions noted and no jaundice Quality Reporting Tobacco Screening ([facility] 138) Smoking Status: Former smoker Assessment and Plan Assessment and Plan (1) C. difficile colitis: Status: Acute Plan: C diff colitis since being treated with antibiotics for diverticulitis in 06/2022, that was first time she had diverticultitis On vancomycin qid x 10 days for second round of antibiotic for recurrent C diff, will call her in 2 wks so see how she is doing, may need taper of vanco or course of dificid (would talk to drug rep) Start probiotic Will schedule her for colonoscopy considering hx of polyps, last scope 7 yrs ago (2) Diverticula of colon: Status: Acute Plan: I have examined the patient and the H&P has been reviewed. There are no clinical changes since date of exam.
--- NOTE | 2023-01-11 07:10 | OP.COLON_ITS ---
Patient Name: Erica Fong Procedure Date: 01/11/2023 6:36 AM Date of : 1950 Age: 72 Procedure: Colonoscopy Indications: Screening for colorectal malignant neoplasm Providers: Hudson Wade DO Referring MD: Hudson Wade DO Medicines: Monitored Anesthesia Care Patient Profile: This is a 72 year old female. Refer to note in patient chart for documentation of history and physical. Last Colonoscopy: date unknown. Unable to locate last colonoscopy report. Complications: No immediate complications. Procedure: Pre-Anesthesia Assessment: - Prior to the procedure, a History and Physical was performed, and patient medications and allergies were reviewed. The patient is competent. The risks and benefits of the procedure and the sedation options and risks were discussed with the patient. All questions were answered and informed consent was obtained. Patient identification and proposed procedure were verified by the physician in the pre-procedure area. Mental Status Examination: alert and oriented. Airway Examination: normal oropharyngeal airway and neck mobility. Respiratory Examination: clear to auscultation. CV Examination: normal. Prophylactic Antibiotics: The patient does not require prophylactic antibiotics. Prior Anticoagulants: The patient has taken no previous anticoagulant or antiplatelet agents. ASA Grade Assessment: II - A patient with mild systemic disease. After reviewing the risks and benefits, the patient was deemed in satisfactory condition to undergo the procedure. The anesthesia plan was to use monitored anesthesia care (MAC). Immediately prior to administration of medications, the patient was re-assessed for adequacy to receive sedatives. The heart rate, respiratory rate, oxygen saturations, blood pressure, adequacy of pulmonary ventilation, and response to care were monitored throughout the procedure. The physical status of the patient was re-assessed after the procedure. After I obtained informed consent, the scope was passed under direct vision. Throughout the procedure, the patient's blood pressure, pulse, and oxygen saturations were monitored continuously. The Colonoscope was introduced through the anus and advanced to the terminal ileum. The colonoscopy was performed without difficulty. The patient tolerated the procedure well. The quality of the bowel preparation was good. Scope In: 6:45:56 AM Scope Withdrawal Time 0 hours 9 minutes 36 seconds Scope Out: 6:58:39 AM Total Procedure Duration Time 0 hours 12 minutes 43 seconds Findings: The perianal and digital rectal examinations were normal. A 5 mm polyp was found in the hepatic flexure. The polyp was sessile. The polyp was removed with a cold snare. Resection and retrieval were complete. Verification of patient identification for the specimen was done. Estimated blood loss was minimal. An area of mildly congested mucosa was found in the sigmoid colon. Biopsies were taken with a cold forceps for histology. Verification of patient identification for the specimen was done. Estimated blood loss was minimal. Multiple small and large-mouthed diverticula were found in the recto-sigmoid colon, sigmoid colon and descending colon. Impression: - One 5 mm polyp at the hepatic flexure, removed with a cold snare. Resected and retrieved. - Congested mucosa in the sigmoid colon. Biopsied. - Diverticulosis in the recto-sigmoid colon, in the sigmoid colon and in the descending colon. Recommendation: - Discharge patient to home. - Resume previous diet. - Continue present medications. - Await pathology results. - Repeat colonoscopy in 5 years for surveillance. Procedure Code(s): --- Professional --- 53763, Colonoscopy, flexible; with removal of tumor(s), polyp(s), or other lesion(s) by snare technique 29130, 59, Colonoscopy, flexible; with biopsy, single or multiple CPT copyright 2017 [employer]. All rights reserved. The codes documented in this report are preliminary and upon automotive sales specialist review may be revised to meet current compliance requirements. Hudson Wade DO 01/11/2023 7:09:40 AM This report has been signed electronically. Number of Addenda: 0 Note Initiated On: 01/11/2023 6:36 AM
--- NOTE | 2023-01-11 07:10 | OP.CCLET_ITS ---
01/11/2023 Hermila Macario Md Re : Colonoscopy procedure for Erica Fong Dear Amirah This procedure was performed on Wednesday, January 11, 2023. My impressions and recommendations are as follows: Impressions : - One 5 mm polyp at the hepatic flexure, removed with a cold snare. Resected and retrieved. - Congested mucosa in the sigmoid colon. Biopsied. - Diverticulosis in the recto-sigmoid colon, in the sigmoid colon and in the descending colon. Recommendations : - Discharge patient to home. - Resume previous diet. - Continue present medications. - Await pathology results. - Repeat colonoscopy in 5 years for surveillance. My findings are described in the full procedure note, which is enclosed. If I can be of further assistance, please feel free to contact me at . Sincerely, Hudson Wade, 01/11/2023 7:09:40 AM This report has been signed electronically.
== END 2023-01-11 08:15 | disposition home or self-care (01) ==
LOC: EN 05:21 → AC 05:22
PROVIDERS: PCP Internal Medicine; Referring Provider Internal Medicine; Visit Provider Internal Medicine Gastroenterology
PROC: 0DJD8ZZ Inspection of Lower Intestinal Tract, Via Natural or Artificial Opening Endoscopic (ICD-10-PCS; CPT 45378; principal; 2023-01-11 06:25)
DX: Z12.11 Encounter for screening for malignant neoplasm of colon (principal); A04.71 Enterocolitis due to Clostridium difficile, recurrent; K57.30 Diverticulosis of large intestine without perforation or abscess without bleeding; K63.5 Polyp of colon; Z87.891 Personal history of nicotine dependence
CPT/HCPCS: 45385; 45380; 88305; J7120; J2405

== ENCOUNTER → 2023-03-17 | Outpatient (CLI) | payer MEDICARE, OTHER, SELFPAY | END | disposition home or self-care (01) | LOC: SL 12:53 | PROVIDERS: PCP Internal Medicine; Referring Provider Internal Medicine; Visit Provider Internal Medicine | DX: G47.10 Hypersomnia, unspecified (principal) | CPT/HCPCS: 95806 ==

== ENCOUNTER → 2023-04-28 | Outpatient (CLI) | payer MEDICARE, OTHER, SELFPAY ==
[2023-04-28 15:19] LABS: Absolute Lymphocyte Count 1.79 X10^3/uL (0.83-4.51); Absolute Neutrophil Count 2.6 X10^3/uL (2.0-7.7); Basophil# 0.04 X10^3/uL; Basophil% 0.8 % (0-1); Eosinophil# 0.17 X10^3/uL; Eosinophils% 3.3 % (0-5); Hematocrit 45.1 % (37-47); Hemoglobin 13.9 g/dL (12.0-15.0); Lymphocyte # 1.79 X10^3/ul (0.83-4.51); Lymphocyte % 34.8 % (19-41); Mean Corp Hgb Conc 30.8 g/dL (32-36); Mean Corpuscular Hgb 28.4 pg (27.0-32.0); Mean Platelet Vol. 10.5 fl (6.2-12.0); Monocyte% 9.7 % (0-10); NRBC Flagged by Analyzer 0 % (0-5); Neutrophil # 2.63 X10^3/uL (2.7-7.7); Neutrophil % 51.2 % (47-70); Platelet Count 222 K/mm3 (150-450); RBC Distribution Width CV 14.5 % (11.6-14.6); RBC Distribution Width SD 49.5 fl (35.1-43.9); White Blood Count 5.1 K/mm3 (4.4-11.0)
[2023-04-28 15:54] LABS: Erythrocyte Sedimentation Rate 6 mm/hr (0-30)
[2023-04-28 16:04] LABS: ALB/GLOB Ratio 1.1 RATIO (0.9-2.4); AST(SGOT) 16 U/L (15-37); Alanine Aminotransfer ALT/SGPT 31 U/L (13-56); Albumin, Serum 3.8 g/dL (3.2-5.0); Alkaline Phosphatase 85 U/L (45-117); Anion Gap 7 (5-15); BUN 14 mg/dL (7-18); Calcium,Total 9.1 mg/dL (8.5-10.1); Chloride 107 mmol/L (98-107); Creatinine, Serum 0.82 mg/dL (0.55-1.02); EST Glomerular Filtration Rate 73 mL/min (>60); Est Glom Filt Rate - Afr Amer 88 mL/min (>60); Globulin 3.4 g/dL (2.2-4.2); Glucose 94 mg/dL (74-106); Protein, Total 7.2 g/dL (6.4-8.2); Sodium Level 143 mmol/L (136-145)
== END | disposition home or self-care (01) ==
LOC: BIMLAB 14:30
PROVIDERS: PCP Internal Medicine; Referring Provider Internal Medicine; Visit Provider Internal Medicine
DX: G47.9 Sleep disorder, unspecified (principal); R51.9 Headache, unspecified
CPT/HCPCS: 36415; 80053; 85025; 85652

== ENCOUNTER → 2023-05-18 | Outpatient (CLI) | payer MEDICARE, OTHER, SELFPAY ==
--- NOTE | 2023-05-18 15:11 | BI_ITS ---
MAMMOGRAPHY - BILATERAL SCREENING REASON FOR EXAM: Female, 72 years old. Routine annual screening examination. PERTINENT HISTORY: Mother with breast cancer. Remote left excisional breast biopsy. TECHNIQUE: Digital bilateral breast ruiz (3D mammographic acquisition) in the CC and MLO projections. 2-D mediolateral oblique (MLO) and craniocaudad (CC) views of both breasts were obtained. CAD: Full Field Digital Mammography with Computer Added Detection was performed. COMPARISON: Comparison is made with prior study April 22, 2022 and February 24, 2021. FINDINGS: Breast Composition: The breasts are heterogeneously dense, which may obscure small masses. There are no dominant masses or suspicious calcifications. Stable small benign-appearing bilateral axillary lymph nodes. No other significant abnormalities are identified. There has been no significant change since the prior study. BI/SCRN MAMM (CAD)W/RUIZ BILAT IMPRESSION: Stable bilateral screening mammogram. Yearly follow-up mammogram recommended. (A) ASSESSMENT CATEGORY: BIRADS Category 2: Benign. A letter regarding these results will be sent to the patient by the facility within 30 days. Approximately 10% of breast cancers are not detected by mammography. A normal mammogram should not delay biopsy of a clinically suspicious abnormality. [id number] Electronically Signed: Sher Dhaliwal MD at 8:52 EST ,
--- NOTE | 2023-05-18 15:29 | BD_ITS ---
STUDY: DUAL ENERGY X-RAY ABSORPTIOMETRY / DXA REASON FOR EXAM: Female, 72 years old. Postmenopausal TECHNIQUE: Bone Mineral Density (BMD) measurements of lumbar spine and bilateral hips were obtained. COMPARISON: Comparison is made with prior study dated May 09, 2019. FINDINGS: Lumbar Spine (L1-L4): g/cm2 (0.876) / T-score (-1.6) / Z-score (0.6) Findings are suggestive of osteopenia with a moderate fracture risk. Left Femur Total: g/cm2 (0.825) / T-score (-1.0) / Z-score (0.6) Left Femoral Neck: g/cm2 (0.707) / T-score (-1.3) / Z-score (0.6) Right Femur Total: g/cm2 (0.770) / T-score (-1.4) / Z-score (0.1) Right Femoral Neck: g/cm2 (0.720) / T-score (-1.2) / Z-score (0.7) The T-Scores on the most recent prior examination were: Lumbar Spine (L1-L4): There has been worsening of bone density since the previous examination. Left Femur Total: which represents a worsening of 9.4%. Right Femur Total: which represents a worsening of 12.5%. BD/Dexa Bone Density Study IMPRESSION: The patient is considered osteopenic as outlined below according to World Woo Organization (WHO) criteria with a moderate fracture risk. There has been worsening of bone density since the previous examination. Reference Information: The T-score is the number of standard deviations above or below the standard which is normal for young adults at their peak bone mineral density. The World Health Organization (WHO) interprets the T-scores as follows: Above -1 Normal bone density Between -1 and -2.5 Osteopenia Equal to / or below -2.5 Osteoporosis As a practical clinical guideline, osteopenia may be graded as follows: Mild -1 through -1.5 Moderate -1.6 through -2.0 Severe -2.1 through -2.4 The Z-score is the number of standard deviations above or below age-matched controls. A Z-score of less than -1.5 would be considered abnormal. References: 1. NIH Osteoporosis and Related Bone Diseases www osteo.org 2. International Society for Clinical Densitometry www iscd.org 3. National Osteoporosis Foundation www nof.org Electronically Signed: Sher Dhaliwal MD at 12:23 EST ,
== END | disposition home or self-care (01) ==
LOC: OPBI 15:11
PROVIDERS: PCP Internal Medicine; Referring Provider Nurse Practitioner Women's Health; Visit Provider Nurse Practitioner Women's Health
DX: Z12.31 Encounter for screening mammogram for malignant neoplasm of breast (principal); Z78.0 Asymptomatic menopausal state
CPT/HCPCS: 77063; 77067; 77080

== ENCOUNTER → 2023-10-27 | Outpatient (CLI) | payer MEDICARE, OTHER, SELFPAY ==
[2023-10-27 16:56] LABS: Absolute Lymphocyte Count 2.12 X10^3/uL (0.83-4.51); Absolute Neutrophil Count 2.8 X10^3/uL (2.0-7.7); Basophil# 0.06 X10^3/uL; Basophil% 1.1 % (0-1); Eosinophil# 0.15 X10^3/uL; Eosinophils% 2.7 % (0-5); Hematocrit 43.8 % (37-47); Hemoglobin 13.6 g/dL (12.0-15.0); Lymphocyte # 2.12 X10^3/ul (0.83-4.51); Lymphocyte % 37.6 % (19-41); Mean Corp Hgb Conc 31.1 g/dL (32-36); Mean Corpuscular Volume 90.3 fL (81-99); Mean Platelet Vol. 10.9 fl (6.2-12.0); Monocyte# 0.48 X10^3/uL; Monocyte% 8.5 % (0-10); NRBC Flagged by Analyzer 0 % (0-5); Neutrophil # 2.82 X10^3/uL (2.7-7.7); Neutrophil % 49.9 % (47-70); Platelet Count 211 K/mm3 (150-450); RBC Distribution Width CV 14.7 % (11.6-14.6); RBC Distribution Width SD 48.8 fl (35.1-43.9); Red Blood Count 4.85 M/mm3 (4.2-5.4); White Blood Count 5.6 K/mm3 (4.4-11.0)
[2023-10-27 17:11] LABS: ALB/GLOB Ratio 1.1 RATIO (0.9-2.4); AST(SGOT) 14 U/L (15-37); Alanine Aminotransfer ALT/SGPT 22 U/L (13-56); Albumin, Serum 3.8 g/dL (3.2-5.0); Alkaline Phosphatase 75 U/L (45-117); Anion Gap 4 (5-15); BUN 13 mg/dL (7-18); Calcium,Total 9.3 mg/dL (8.5-10.1); Chloride 110 mmol/L (98-107); Cholesterol 118 mg/dL (200); Creatinine, Serum 0.76 mg/dL (0.55-1.02); EST Glomerular Filtration Rate 79 mL/min (>60); Est Glom Filt Rate - Afr Amer 96 mL/min (>60); Globulin 3.4 g/dL (2.2-4.2); Glucose 90 mg/dL (74-106); High Density Lipoprotein 51 mg/dL; Potassium 4.1 mmol/L (3.5-5.1); Protein, Total 7.2 g/dL (6.4-8.2); Sodium Level 141 mmol/L (136-145); Triglycerides 101 mg/dL; Very Low Density Lipoprotein 20 mg/dL (5-40)
== END | disposition home or self-care (01) ==
LOC: BIMLAB 14:48
PROVIDERS: PCP Internal Medicine; Referring Provider Internal Medicine; Visit Provider Internal Medicine
DX: E78.2 Mixed hyperlipidemia (principal)
CPT/HCPCS: 36415; 80053; 80061; 85025

== ENCOUNTER → 2024-05-22 | Outpatient (CLI) | payer MEDICARE, OTHER, SELFPAY ==
--- NOTE | 2024-05-22 15:24 | BI_ITS ---
MAMMOGRAPHY - BILATERAL SCREENING REASON FOR EXAM: Female, 73 years old. Routine annual screening examination. PERTINENT HISTORY: Mother with breast cancer. Remote left excisional breast biopsy. TECHNIQUE: Digital bilateral breast ruiz (3D mammographic acquisition) in the CC and MLO projections. 2-D mediolateral oblique (MLO) and craniocaudad (CC) views of both breasts were obtained. CAD: Full Field Digital Mammography with Computer Added Detection was performed. COMPARISON: Comparison is made with prior study May 18, 2023 and April 22, 2022. FINDINGS: Breast Composition: The breasts are heterogeneously dense, which may obscure small masses. There are no dominant masses or suspicious calcifications. Stable small bilateral axillary lymph nodes. No other significant abnormalities are identified. There has been no significant change since the prior study. BI/SCRN MAMM (CAD)W/RUIZ BILAT IMPRESSION: Stable bilateral screening mammogram. Yearly follow-up mammogram recommended. (A) ASSESSMENT CATEGORY: BIRADS Category 2: Benign. A letter regarding these results will be sent to the patient by the facility within 30 days. Approximately 10% of breast cancers are not detected by mammography. A normal mammogram should not delay biopsy of a clinically suspicious abnormality. [id number] Electronically Signed: Sher Dhaliwal MD at 8:39 EST ,
== END | disposition home or self-care (01) ==
LOC: OPBI 15:22
PROVIDERS: PCP Internal Medicine; Referring Provider Nurse Practitioner Women's Health; Visit Provider Nurse Practitioner Women's Health
DX: Z12.31 Encounter for screening mammogram for malignant neoplasm of breast (principal)
CPT/HCPCS: 77063; 77067

== ENCOUNTER 2025-02-20 12:46 | Emergency (ER) | payer MEDICARE, OTHER, SELFPAY ==
[2025-02-20 12:47] VITALS: BP 172/71; PULSE 57; RESP 20; TEMP 37.1; O2SAT 100; BMI 28.5
--- NOTE | 2025-02-20 14:46 | CT_ITS ---
PROCEDURE: BRAIN/HEAD WITHOUT CONTRAST 02/20/2025 REASON FOR EXAM: PAIN 1 day history of headaches. Hypertension. TECHNIQUE: Procedure Code: CTBR Modality: CT Procedure: BRAIN/HEAD WITHOUT CONTRAST Coronal and Sagittal reconstruction series were provided. One or more dose reduction techniques were used (e.g., Automated exposure control, adjustment of the mA and/or kV according to patient size, use of iterative reconstruction technique. RADIATION DOSE SUMMARY: CTDlvol: 44.99 mGy DLP: 796.11 mGycm COMPARISON: None FINDINGS: Brain: Tiny hypodensities in the basal ganglia bilaterally suggestive of old lacunar infarcts. CSF Spaces: Mild generalized cerebral atrophy Sinuses/Mastoids: There is dense opacification of the sphenoid sinus in keeping with a chronic sphenoid sinusitis. Partial opacification of the left ethmoid sinus. Mucosal thickening along the inferior aspect of the left maxillary sinus. 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 Dense opacification of the sphenoid sinus as well as partial opacification of t he left ethmoid sinus. Mucosal thickening along the inferior aspect of the left maxillary sinus. Reading Location: MAIN
--- NOTE | 2025-02-20 14:50 | EX.ED.VIS.HA ---
HPI History of Present Illness Chief Complaint: Headache Informant: patient Narrative Narrative: Patient is a 74-year-old female with history of hypertension and tension headaches presenting with worsening headache. Patient states she gets frequent headaches worse over the past year. She saw her PCP about it and thought they were tension headaches and suggested soft tissue massage to her neck. She has over the past 3 weeks she has been having worsening headache in both frequency and duration. She states she developed headache last night while watching TV. Started in her frontal area and then started to radiate to the back of her head. Denies any sudden intense onset (thunderclap headache). Does have some associated photophobia. Denies any nausea or vomiting or blurred vision. States has some minimal pain in her upper neck with this. Denies any fever or chills. Today I called her primary care office who recommend taking ibuprofen and Tylenol. She has had 800 mg of ibuprofen x 2 as well as 1000 g of Tylenol with no relief which is what prompted her to come to the emergency room. She denies any numbness or tingling. Any weakness with walking. No rash. No other complaints or concerns at this time [facility] Medical History History of Clostridium difficile infection Wears glasses Wears dentures Anxiety Arthritis High cholesterol History of diverticulitis Former smoker Hypertension Abnormal mammogram Home Medications ?Medication ?Instructions ?Recorded ?Last Taken ?Type calcium carbonate (Calcium 600) 600 mg PO BID 03/23/18 Unknown History Lactobacillus acidophilus 250 500 mmu cells PO DAILY 01/05/23 Unknown History million cell capsule (Probiotic Acidophilus) dupilumab 200 mg/1.14 mL 300 mg subcut Q2W 04/28/23 Unknown History subcutaneous pen injector (Dupixent) hydroxyzine HCl 10 mg tablet 10 mg PO TID PRN anxiey #20 tabs 11/24/23 Unknown Rx atorvastatin 10 mg tablet (Lipitor) 10 mg PO QHS #90 tabs 10/09/24 Unknown Rx losartan 25 mg tablet 25 mg PO DAILY #90 tabs 10/09/24 Unknown Rx trazodone 50 mg tablet 25 mg (1/2 x 50 mg) PO QHS #45 tabs 10/09/24 Unknown Rx alendronate 70 mg tablet (Fosamax) 70 mg PO QWEEK #4 tabs 01/26/25 Unknown Rx estradiol 0.01% (0.1 mg/gram) See Rx Instructions vaginal 01/29/25 Unknown Rx vaginal cream (Estrace) .COMPLEX #42.5 grams CBD Oral (INFORMATIONAL USE 02/20/25 Unknown History ONLY-PT USES ORAL CBD) cetirizine 10 mg tablet (Zyrtec) 10 mg PO DAILY #14 tabs 02/20/25 Unknown Rx fluticasone propionate 50 1 spray intranasal DAILY #16 grams 02/20/25 Unknown Rx mcg/actuation nasal spray,suspension (Flonase Allergy Relief) Allergy/AdvReac Type Severity Reaction Status Date / Time No Known Allergies Allergy Verified 02/20/25 12:48 Family History Mother Breast cancer Father Cancer liver Brother Skin cancer Surgical History Hx of colonoscopy Hx of tooth extraction H/O breast biopsy Social History adopted: No household members: none housing: house number of children: 1 current occupational status: retired 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 current occupational exposures/hazards: No pets and animals: Yes history of recent travel: Yes out of country: Yes Smoking Status: Former smoker quit date: 06/14/01 pack-years: 32 Electronic Cigarette Use: not used second hand exposure: No alcohol intake: current alcohol intake frequency: holidays/special occasions only substance use type: does not use caffeine: No what type of physical activity do you participate in: none seatbelt use: always do you feel safe at home: Yes additional social history: Single ROS ROS ED Constitutional Constitutional ED: Denies chills Eyes Eyes: Reports other Details: Photophobia ; Denies blurry vision or change in vision Cardiovascular Cardiovascular: Denies chest pain Respiratory/Chest Respiratory/Chest: Denies cough or dyspnea Gastrointestinal Gastrointestinal: Denies abdominal pain, nausea or vomiting Musculoskeletal Musculoskeletal: Denies arthralgias or myalgias Integumentary Denies rash Neurologic Neurologic: Reports headache(s); Denies paresthesias or weakness Psychiatric Psychiatric: Denies anxiety Hematologic/Lymphatic Hematologic/Lymphatic: Denies easy bleeding or easy bruising EXAM Physical Exam Const Vital Signs: 02/20/25 12:47 02/20/25 16:37 Temperature 98.7 F 97.8 F Temperature Source Oral Pulse Rate 57 L 58 L Respiratory Rate 20 H 14 Blood Pressure 172/71 H 158/74 H Blood Pressure Mean 104 102 Pulse Ox 100 94 Oxygen Delivery Method Room Air Positive well nourished and well developed General Appearance ED: well developed and NAD HEENT Reports normocephalic, TM's clear and moist mucous membranes atraumatic Tympanic Membrane ED: Yes TM's clear Neck supple and no meningeal signs Neck Narrative: No midline tenderness, normal range of motion of the neck Resp normal respiratory effort and clear to auscultation bilaterally Cardio regular rate and regular rhythm GI non-distended Extremity normal to inspection General Extremety ED: Negative for edema or tenderness General Extremity: Negative for edema Neuro oriented x3, CN's II-XII intact bilaterally and no sensory deficits noted Qamar Coma Scale: document GCS findings Spontaneous Obeys Commands Oriented 15 Sensorium / Orientation: awake and alert Speech: speech normal Psych mental status grossly normal Skin Lesions: no lesions Rashes: no rashes MDM MDM MDM Narrative Medical decision making narrative: Patient evaluated for worsening headache. But having worsening action the past year but since that she been bad the past 3 weeks. She has normal neurologic exam. Blood pressure mildly elevated 172/71 which is nonspecific. Does have a history of hypertension. Will continue to monitor. Differential includes tension headache, sinus headache, space-occupying lesion. Headache not consistent with subarachnoid hemorrhage. Physical exam not consistent with meningitis. She denies any head trauma low suspicion for subdural hemorrhage. Patient given IV Toradol, Reglan and fluids. CT of the brain is obtained looking for space-occupying lesion. She does have findings consistent with an old tiny lacunar infarct of both basal ganglia. This is nonspecific and I do not think related to her clinical presentation today. She is informed of this finding. In addition she has dense opacification of the sphenoid sinus as well as partial opacification of the left ethmoid sinus and mucosal thickening along the inferior aspect of the left maxillary sinus. Possible this could be contribute to her headaches. Discussed starting the patient on antibiotics for sinusitis however she states she does have a history of C. difficile. Because of this we will start her on Flonase and allergy medicine and then have her follow-up with ENT before starting antibiotics. Patient is comfortable this plan of care. Patient's headache is improving on repeat evaluation with still present. Will continue her IV bolus and then reevaluate prior to discharge Patient continues to feel improved. Discharged home. 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 Dense opacification of the sphenoid sinus as well as partial opacification of the left ethmoid sinus. Mucosal thickening along the inferior aspect of the left maxillary sinus. Reading Location: [id number] Discharge Plan Triage Chief Complaint: Headache ED Provider: Estrella No Dx/Rx/DC Orders Clinical Impression: Headache, Opacification of sphenoid sinus, Opacification of ethmoid sinus Instructions: ED Sinus Headache Prescriptions: New fluticasone propionate [Flonase Allergy Relief] 50 mcg/actuation spray,suspension 1 spray intranasal DAILY Qty: 16 0RF Rx Instructions: administer into each nostril cetirizine [Zyrtec] 10 mg tablet 10 mg PO DAILY Qty: 14 0RF No Action calcium carbonate [Calcium 600] 600 mg calcium (1,500 mg) tablet 600 mg PO BID Dupixent Pen 200 mg/1.14 mL pen injector 300 mg subcut Q2W Probiotic Acidophilus 1.5 mg (250 million cell) capsule 500 mmu cells PO DAILY CBD Oral (INFORMATIONAL USE ONLY-PT USES ORAL CBD) hydroxyzine HCl 10 mg tablet 10 mg PO TID PRN (Reason: anxiey) Qty: 20 0RF atorvastatin [Lipitor] 10 mg tablet 10 mg PO QHS Qty: 90 1RF losartan 25 mg tablet 25 mg PO DAILY Qty: 90 1RF trazodone 50 mg tablet 25 mg PO QHS Qty: 45 1RF alendronate [Fosamax] 70 mg tablet 70 mg PO QWEEK Qty: 4 0RF estradiol [Estrace] 0.01 % (0.1 mg/gram) cream See Rx Instructions Vaginal .COMPLEX Qty: 42.5 2RF Dose Instruction: pea sized amount VAGINAL every other day X 4 weeks then twice a week; Rx Instructions: pea sized amount VAGINA twice a week; Primary Care Provider: Hermila Macario Referrals: Hermila Macario MD [Primary Care Provider] - Eliel Buitrago MD [Med Staff - Active Staff] - Activity Restrictions/Additional Instructions: Your CT today showed 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 You can follow-up with your family doctor for this. He also have significant inflammation and fullness of your sinuses. Because of your history of C. difficile we will hold off on antibiotics at this time until you see the ear nose and throat. In the meantime start the medications prescribed today to hopefully help with the sinuses and ultimately her headaches. Print Language: Sami Disposition Disposition: Home, Self Care Discharge Date/Time: 02/20/25 16:47
[2025-02-20] MEDS: 0.9% Normal Saline (1000mL) 1,000 ML 999 ML IV (14:55)
[2025-02-20 16:37] VITALS: BP 158/74; PULSE 58; RESP 14; TEMP 36.6; O2SAT 94
== END 2025-02-20 16:47 | disposition home or self-care (01) ==
PROVIDERS: Emergency Provider Emergency Medicine; PCP Internal Medicine; Visit Provider Emergency Medicine
DX: R51.9 Headache, unspecified (principal); E78.00 Pure hypercholesterolemia, unspecified; Z87.891 Personal history of nicotine dependence; Z79.899 Other long term (current) drug therapy
CPT/HCPCS: 70450; 96361; 96374; 96375; 99283; A4216

== ENCOUNTER → 2025-04-05 | Outpatient (CLI) | payer MEDICARE, OTHER, SELFPAY ==
[2025-04-05 12:01] LABS: Hematocrit 41.0 % (37-47); Hemoglobin 13.0 g/dL (12.0-15.0); Immature Granulocytes Count 0.020 X10^3/uL (0.0-0.0); Mean Corp Hgb Conc 31.7 g/dL (32-36); Mean Corpuscular Volume 90.7 fL (81-99); Mean Platelet Vol. 10.0 fl (6.2-12.0); NRBC Flagged by Analyzer 0 % (0-5); Platelet Count 194 K/mm3 (150-450); RBC Distribution Width CV 15.4 % (11.6-14.6); RBC Distribution Width SD 50.8 fl (35.1-43.9); Red Blood Count 4.52 M/mm3 (4.2-5.4); White Blood Count 5.2 K/mm3 (4.4-11.0)
[2025-04-05 13:49] LABS: AST(SGOT) 17 U/L (<=31); Alanine Aminotransfer ALT/SGPT 12 U/L (<=34); Albumin, Serum 4.1 g/dL (3.4-4.8); Alkaline Phosphatase 72 U/L (35-104); Anion Gap 9 (5-15); BUN 9 mg/dL (4-19); BUN/Creat Ratio 12.3 RATIO (10-20); Calcium,Total 8.9 mg/dL (7.6-11.0); Carbon Dioxide 25.9 mmol/L (21.0-32.0); Chloride 109 mmol/L (98-108); Globulin 2.6 g/dL (2.2-4.2); Glucose 92 mg/dL (70-99); Potassium 4.1 mmol/L (3.3-5.1); Vitamin D,25 Hydroxy 27.7 ng/mL (30-100)
[2025-04-05 14:03] LABS: Cholesterol 129 mg/dL (<=200); Low Density Lipoprotein Calc. 62 mg/dL; Triglycerides 83 mg/dL; Very Low Density Lipoprotein 17 mg/dL (5-40); cholesterol:hdl ratio screen 2.53
== END | disposition home or self-care (01) ==
LOC: MTLAB 10:30
PROVIDERS: PCP Internal Medicine; Referring Provider Internal Medicine; Visit Provider Internal Medicine
DX: I10 Essential (primary) hypertension (principal); E78.2 Mixed hyperlipidemia; M85.80 Other specified disorders of bone density and structure, unspecified site
CPT/HCPCS: 36415; 80053; 80061; 82306; 85025

== ENCOUNTER → 2025-05-23 | Outpatient (CLI) | payer MEDICARE, OTHER, SELFPAY ==
--- NOTE | 2025-05-23 14:00 | BD_ITS ---
PROCEDURE: DEXA BONE DENSITY STUDY 05/23/2025 REASON FOR EXAM: POST MENOPAUSAL F, age 74 y/o . Postmenopausal. TECHNIQUE: Procedure Code: BDDBD Modality: DX Procedure: DEXA BONE DENSITY STUDY COMPARISON: May 18, 2023. FINDINGS: BMD and T-SCORES Lumbar spine: 0.898 g/cm2, T-score -1.4 Levels: L1 through L4 Change from prior: Improvement of 2.4%. Left femoral neck: 0.736 g/cm2, T-score -1.0 Femoral neck comparison data not recommended for monitoring change. Left total hip: 0.830 g/cm2, T-score -0.9 Change from prior: Improvement of 0.7%. Right femoral neck: 0.742 g/cm2, T-score -1.0 Femoral neck comparison data not recommended for monitoring change. Right total hip: 0.812 g/cm2, T-score -1.1 Change from prior: Improvement of 5.6%. The World Health Organization has defined the following categories based on bone density: Normal bone density: T-score equal to or greater than -1.0 Osteopenia: T-score between -1.0 and -2.5 Osteoporosis: T-score equal to or less than -2.5 FRAX (or Comparable) Fracture Risk Assessment: 10 Year Probability of Fracture: Major Osteoporotic Fracture: 9.1% Hip Fracture: 1.1% (Note: FRAX is not to be reported in setting of normal range bone density, osteoporosis on DEXA, known history of osteoporosis, prior osteoporotic hip or vertebral fracture, or for any patient undergoing pharmacological treatment for bone loss.) The National Osteoporosis Foundation (NOF) recommends pharmacological treatment for patients with a FRAX 10-year risk of 3% or higher for a hip fracture, or 20% or higher for a major osteoporotic fracture, to prevent osteoporosis and reduce fracture risk. The patient does meet the pharmacological treatment recommendations for prevention of osteoporosis. BD/Dexa Bone Density Study IMPRESSION: OSTEOPENIA. Recommend follow-up as clinically warranted. Reading Location: [place] [id number]
--- OUTSIDE RECORDS SUMMARY | 2025-05-23 14:22 | XMS RPT_ITS | CCD ---
Author Organization [facility] Care Team Providers Care Bartender Helper Name Role Phone Care Physician, No Primary Primary Care Provider Unavailable Care Physician, No Primary Referring Provider Un available Sheldon [employer] FARM MANAGER, [employer] FARM MANAGER-C Demi Attending Provider [phone] Dr. Hermila Macario Attending Provider [phone] Dr. Hermila Macario Primary Care Provider Dr. Hermila Macario Referring Provider [phone] Dr. Hermila Macario Primary Care Provider Dr. Hermila Macario Attending Provider [phone] Dr. Hermila Macario Referring Provider [phone] Vera GAN, [employer] FARM MANAGER-C Lupe Vergara Attending Provider [phone] FriendDr. Treviño Attending Provider [phone] FriendDr[address] Treviño Other Provider [phone] Dr. Hermila Macario Primary Care Provider Dr. Hermila Macario Attending Provider [phone] Dr. Hermila Macario Referring Provider [phone] Sheldon [employer] FARM MANAGER, [employer] FARM MANAGER-C Demi Attending Provider [phone] Dr. Hermila Macario MD Primary Care Provider [phone] Dr. Hermila Macario MD Referring Provider Sheldon GAN-CDemi Attending Provider Dr. Estrella No DO Emergency Provider Dr. Estrella No DO Attending Provider Amirah STEPHENS, Dr. Cleaning Attending Provider Geneva, Hermila Attending Unavailable Amirah, Hermila Referring Unavailable Geneva, Hermila Primary Care Unavailable Amirah, Hermila Primary Care Unavailable Estrella No Attending Unavailable [place] [employer] FARM MANAGER, Demi Attending Unavailable Geneva, Hermila Referring Unavailable Amirah, Hermila Primary Care Unavailable Amirah, Hermila Attending Unavailable Geneva, Hermila Referring Unavailable Amirah, Hermila Primary Care Unavailable Amirah, Hermila Referring Unavailable Amirah, Hermila Primary Care Unavailable Geneva, Hermila Attending Unavailable Geneva, Hermila Attending Unavailable Amirah, Hermila Referring Unavailable Amirah, Hermila Primary Care Unavailable Reddy Montoya Attending Unavailable Amirah, Hermila Primary Care Unavailable Sheldon [employer] FARM MANAGER, Demi Attending Unavailable Sheldon [employer] FARM MANAGER, Demi Referring Unavailable Amirah, Hermila Primary Care Unavailable Medications Current Medications Medication Drug Class(es) Dates Sig (Normalized) Sig (Original) CBD Oral (INFORMATIONAL USE ONLY-PT USES ORAL CBD) (2 sources) Start: 02-20-2025 CBD Oral (INFORMATIONAL USE ONLY-PT USES ORAL CBD) Active February 20, 2025 12:00am alendronic acid 70 mg oral tablet (19 sources) Bisphosphonate Start: 05-25-2023 End: 02-26-2025 take 1 tablet by mouth every week Alendronate (Fosamax) 70 mg tablet Active 70 mg PO EVERY WEEK 12 February 26, 2025 10:51am aspirin 81 mg oral tablet (1 source) Platelet Aggregation Inhibitor, Nonsteroidal Anti-inflammatory Drug Start: 02-26-2025 take 1 tablet by mouth once daily Aspirin 81 mg tablet Active 81 mg PO daily 90 February 26, 2025 12:00am Blood Pressure Monitor (4 sources) Start: 04-27-2022 Blood Pressure Monitor Active 0 .Route April 27, 2022 1:00am As directed Start: 04-27-2022 Blood Pressure Monitor Active 0 .Route April 27, 2022 12:00am As directed calcium carbonate 1500 mg oral tablet (9 sources) Start: 03-23-2018 take 1 tablet by mouth twice daily Calcium Carbonate (Calcium 600) 600 mg calcium (1,500 mg) tablet Active 600 mg PO TWICE A DAY March 23, 2018 12:00am cetirizine hydrochloride 10 mg oral tablet (2 sources) Histamine-1 Receptor Antagonist Start: 02-20-2025 take 1 tablet by mouth once daily Cetirizine (Zyrtec) 10 mg tablet Active 10 mg PO DAILY 14 0 February 20, 2025 12:00am doxycycline hyclate 100 mg oral capsule (1 source) Tetracycline-clas s Drug Start: 02-26-2025 take 1 capsule by mouth twice daily Doxycycline Hyclate 100 mg capsule Active 100 mg PO TWICE A DAY February 26, 2025 12:00am Dupilumab (13 sources) Start: 04-28-2023 Dupilumab (Dupixent Pen) 200 mg/1.14 mL pen injector Active 300 mg SC every 2 weeks April 28, 2023 2:55pm Start: 04-28-2023 Dupilumab (Dup ixent Pen) 200 mg/1.14 mL pen injector Active 300 MG SC every 2 weeks April 28, 2023 1:55pm Start: 02-11-2021 End: 04-28-2023 Dupilumab (Dupixent Pen) 200 mg/1.14 mL pen injector Discontinued 200 mg SC every 2 weeks February 11, 2021 12:00am April 28, 2023 2:56pm Start: 02-11-2021 End: 04-28-2023 Dupilumab (Dupixent Pen) 200 mg/1.14 mL pen injector Discontinued 200 MG SC every 2 weeks February 10, 2021 11:00pm April 28, 2023 1:56pm Start: 02-11-2021 Dupilumab (Dup ixent Pen) 200 mg/1.14 mL pen injector Active 200 MG SC every 2 weeks February 11, 2021 12:00am Start: 02-11-2021 Dupilumab (Dup ixent Pen) 200 mg/1.14 mL pen injector Active 200 MG SC every 2 weeks February 10, 2021 11:00pm fluticasone propionate 0.05 mg/actuat metered dose nasal spray (11 sources) Corticosteroid Start: 02-20-2025 take 50 ug nasal route once daily Fluticasone Propionate (Flonase Allergy Relief) 50 mcg/actuation spray,suspension Active 1 NMA INTRANASAL DAILY 16 0 February 20, 2025 12:00am administer into each nostril Start: 08-02-2015 End: 02-16-2019 Fluticasone Propionate 1 SPR AY spray,suspension Discontinued 1 NMA NASAL TWICE A DAY August 02, 2015 1:00am February 16, 2019 1:36pm Start: 08-02-2015 End: 02-16-2019 Fluticasone Propionate Disco ntinued 1 SPRAY NASAL TWICE A DAY August 02, 2015 12:00am February 16, 2019 12:36pm lactobacillus acidophilus 1.5 mg oral capsule (5 sources) Start: 01-05-2023 Lactobacillus Acidophilus (Probiotic Acidophilus) 1.5 mg (250 million cell) capsule Active 500 NMA PO DAILY January 05, 2023 12:00am predniSONE 20 mg oral tablet (1 source) Start: 02-26-2025 take 2 tablets by mouth once daily Prednisone 20 mg tablet Active 40 mg PO daily 10 February 26, 2025 12:00am triamcinolone acetonide 0.25 mg/ml topical cream (4 sources) Corticosteroid Start: 02-11-2021 Triamcinolone Acetonide Active 1 APPLIC TOPICAL DAILY February 11, 2021 12:00am vancomycin 125 mg oral capsule (18 sources) Glycopeptide Antibacterial Start: 02-26-2025 take 1 capsule by mouth four times daily Vancomycin 125 mg capsule Active 125 mg PO 4 TIMES DAILY 40 0 February 26, 2025 11:14am Start: 10-27-2023 End: 11-13-2024 take 1 capsule by mouth four times daily as needed Vancomycin 125 mg capsule Discontinued 125 mg PO 4 TIMES DAILY as needed October 27, 2023 12:00am November 13, 2024 1:19pm Start: 10-13-2023 End: 10-23-2023 take 1 capsule by mouth four times daily Vancomycin (Vancocin) 125 mg capsule Discontinued 125 mg PO EVERY 6 HOURS 40 10 0 October 13, 2023 2:51pm October 22, 2023 12:00am October 23, 2023 12:15am take 125 mg 4 times per day for 10 days Start: 09-29-2022 End: 10-21-2022 take 1 capsule by mouth four times daily Vancomycin 125 mg capsule Discontinued 125 mg PO DAILY 40 0 September 29, 2022 12:00am October 21, 2022 9:07am take 125 mg 4 times per day for 10 days Completed/Discontinued Medications Medication Drug Class(es) Dates Sig (Normalized) Sig (Original) acetaminophen 325 mg / HYDROcodone bitartrate 5 mg oral tablet (8 sources) Opioid Agonist Start: 07-06-2022 End: 07-20-2022 Hydrocodone-Acetamino phen 5-325 mg tablet Discontinued 1 {tbl} PO EVERY 6 HOURS as needed for pain 12 3 July 06, 2022 July 20, 2022 12:15pm Diverticulosis of colon Start: 07-06-2022 End: 07-20-2022 take 1 tablet by mouth every six hours Hydrocodone-Acetaminophen Discontinued 1 TABLET PO EVERY 6 HOURS 12 July 06, 2022 July 20, 2022 11:15am Ogqmnob-Gdjwkklrgtmxv-Lwzuph ne (Excedrin Extra Strength) 250-250-65 mg tablet (1 source) Start: 02-22-2025 End: 02-26-2025 Xwtyegf-Ysigdbkgajokg-Sgviae ne (Excedrin Extra Strength) 250-250-65 mg tablet Discontinued 1 {tbl} PO EVERY 4-6 HOURS as needed for pain 10 February 22, 2025 12:00am February 26, 2025 11:20am atorvastatin 10 mg oral tabl et (20 sources) HMG-Co A Reduct ase Inhibi tor Start: 05-19-2022 End: 10-09-2024 take 1 tablet by mouth at bedtim e Atorvastatin (Lipitor) 10 mg tablet Discontinued 10 mg PO AT BEDTIME 90 April 17, 2024 1:15pm October 09, 2024 3:39pm cefdinir 300 mg oral capsule (8 sources) Cephal ospori n Antiba cteria l Start: 07-06-2022 End: 09-23-2022 take 1 capsul e by mouth twice daily Cefdinir 300 mg capsule Discontinued 300 mg PO TWICE A DAY July 06, 2022 1:00am September 23, 2022 2:01pm cephalexin 500 mg oral capsu le (9 sources) Cephal ospori n Antiba cteria l Start: 02-16-2019 End: 02-24-2019 take 1 capsul e by mouth every twelve hours Cephalexin (Keflex) 500 mg capsule Discontinued 500 mg PO Q12H 14 7 0 February 16, 2019 12:00am February 22, 2019 12:00am February 24, 2019 12:09am doxepin hydrochloride 10 mg oral capsule (16 sources) Tricyc lic Antide pressa nt Start: 02-23-2023 End: 06-29-2024 take 1 capsul e by mouth at bedtim e Doxepin 10 mg capsule Discontinued 10 mg PO AT BEDTIME 30 0 March 22, 2023 7:29pm March 29, 2023 1:25pm Start: 02-22-2023 End: 02-23-2023 take 1 tablet by mouth at bedtime as needed for sleep Doxepin 3 mg tablet Discontinued 3 mg PO AT BEDTIME as needed for sleep 30 February 22, 2023 12:00am February 23, 2023 10:34am estradiol 0.1 mg/ml vaginal cream (20 sources) Estrogen Start: 03-23-2018 End: 01-29-2025 Estradiol (Estrace) 0.01 % (0.1 mg/gram) cream Discontinued 0 VAGINAL .COMPLEX 42.5 2 October 18, 2023 4:00pm January 29, 2025 3:28pm pea sized amount VAGINA twice a week; Start: 03-23-2018 End: 03-31-2019 Estradiol (Estrace) 0.01 % ( 0.1 mg/gram) cream Active 0 VAGINAL .COMPLEX 42.5 March 31, 2019 1:00pm pea sized amount VAGINA twice a week; fidaxomicin 200 mg oral tablet (6 sources) Macrolide Antibacterial Start: 10-21-2022 End: 10-21-2022 take 1 tablet by mouth every twelve hours Fidaxomicin 200 mg tablet Discontinued 200 mg PO Q12H 20 10 0 October 21, 2022 12:00am October 30, 2022 12:00am October 21, 2022 11:20am fluconazole 150 mg oral tablet (16 sources) Azole Antifungal Start: 07-20-2022 End: 09-23-2022 Fluconazole 150 mg tablet Discontinued 150 mg PO .COMPLEX 2 0 July 20, 2022 1:00am September 23, 2022 2:01pm 150 mg PO take one po now and repeat in 3 days Start: 03-01-2019 End: 03-31-2019 Fluconazole 150 mg tablet Di scontinued 150 mg PO .COMPLEX 2 0 March 01, 2019 12:00am March 31, 2019 1:54pm 150 mg PO take one po now and repeat in 3 days hydrOXYzine hydrochloride 10 mg oral tablet (20 sources) Antihistamine Start: 04-27-2022 End: 11-24-2023 take 1 tablet by mouth three times daily as needed Hydroxyzine Hcl 10 mg tablet Discontinued 10 mg PO THREE TIMES A DAY as needed for anxiey 20 December 17, 2022 10:41am February 22, 2023 3:31pm lisinopril 5 mg oral tablet (20 sources) Angiotensin Converting Enzyme Inhibitor Start: 04-27-2022 End: 02-22-2023 take 1 tablet by mouth once daily Lisinopril 5 mg tablet Discontinued 5 mg PO DAILY 90 0 December 17, 2022 10:40am February 22, 2023 3:25pm Primary hypertension Essential (primary) hypertension losartan potassium 25 mg oral tablet (20 sources) Angiotensin 2 Receptor Dawson Start: 02-22-2023 End: 10-09-2024 take 1 tablet by mouth once daily Losartan 25 mg tablet Discontinued 25 mg PO DAILY 90 1 April 17, 2024 1:16pm October 09, 2024 3:39pm metroNIDAZOLE 500 mg oral tablet (8 sources) Nitroimidazole Antimicrobial Start: 07-06-2022 End: 09-23-2022 take 1 tablet by mouth three times daily Metronidazole 500 mg tablet Discontinued 500 mg PO THREE TIMES A DAY 29 0 July 06, 2022 1:00am September 23, 2022 2:02pm ramelteon 8 mg oral tablet (20 sources) Melatonin Receptor Agonist Start: 09-23-2022 End: 02-22-2023 take 1 tablet by mouth at bedtime Ramelteon 8 mg tablet Discontinued 8 mg PO AT BEDTIME 30 January 27, 2023 4:12pm February 22, 2023 9:02pm SUMAtriptan 25 mg oral tablet (1 source) Serotonin-1b and Serotonin-1d Receptor Agonist Start: 02-22-2025 End: 02-26-2025 take 1 tablet by mouth once Sumatriptan Succinate (Imitrex) 25 mg tablet Discontinued 25 mg PO ONCE 1 February 22, 2025 12:00am February 26, 2025 11:20am traZODone hydrochloride 50 mg oral tablet (15 sources) Serotonin Reuptake Inhibitor Start: 10-27-2023 End: 10-09-2024 Trazodone 50 mg tablet Discontinued 25 mg PO AT BEDTIME 45 1 April 24, 2024 2:04pm October 09, 2024 3:39pm Problems Active Problems Problem Classification Problem Date Documented Da te Episodic/Chronic Abdominal pain (8 sources) Left lower quadrant pain; Translations: [Left lower quadrant pain] 07-06-2022 Episodic Administrative/social admission (2 sources) Persons encountering health services in other specified circumstances; Translations: [Other reasons for seeking consultation] Episodic Allergic reactions (10 sources) Eczema; Translations: [Dermatitis, unspecified] 04-27-2022 Episodic Anxiety disorders (10 sources) Other specified anxiety disorders; Translations: [Other anxiety states] Chronic Disorders of lipid metabolism (17 sources) Mixed hyperlipidemia; Translations: [Mixed hyperlipidemia] Onset: 02-26-2025 05-25-2022 Chronic Diverticulosis and diverticulitis (18 sources) Diverticulosis of colon; Translations: [Diverticulosis of large intestine without perforation or abscess without bleeding] 07-06-2022 Chronic Essential hypertension (20 sources) Hypertensive disorder; Translations: [Essential (primary) hypertension] Onset: 04-14-2025 Chronic Headache; including migraine (3 sources) Tension-type headache; Translations: [Tension-type headache, unspecified, not intractable] 07-09-2023 Chronic Headache; including migraine (4 sources) Headache; Translations: [Daily headache] 03-29-2023 Episodic Headache; including migraine (1 source) Headache; including migraine; Translations: [Headache, unspecified] Onset: 02-26-2025 Intestinal infection (8 sources) Clostridium difficile colitis; Translations: [Enterocolitis due to Clostridium difficile, not specified as recurrent] 10-23-2022 Episodic Menopausal disorders (15 sources) Atrophic vaginitis; Translations: [Postmenopausal atrophic vaginitis] Chronic Comment on above: managed with estradi ol cream Other bone disease and musculoskeletal deformities (1 source) Osteopenia; Translations: [Other specified disorders of bone density and structure, unspecified site] 02-26-2025 Episodic Other bone disease and musculoskeletal deformities (1 source) Other specified disorders of bone density and structure, unspecified site; Translations: [Other specified disorders of bone density and structure, unspecified site] Onset: 02-26-2025 Episodic Other gastrointestinal disorders (8 sources) Diarrhea; Translations: [Diarrhea, unspecified] 07-10-2022 Episodic Other gastrointestinal disorders (8 sources) History of diverticulitis; Translations: [Personal history of other diseases of the digestive system] 07-10-2022 Episodic Other gastrointestinal disorders (3 sources) Diarrhea, unspecified; Translations: [Diarrhea] 09-23-2022 Episodic Other liver diseases (4 sources) Abnormal levels of other serum enzymes; Translations: [Other nonspecific abnormal serum enzyme levels] 05-25-2022 Episodic Other lower respiratory disease (1 source) Dry cough; Translations: [Upper airway cough syndrome] 02-22-2023 Episodic Other nervous system disorders (1 source) Other chronic pain; Translations: [Other chronic pain] Onset: 07-04-2024 Chronic Other nervous system disorders (3 sources) Other abnormalities of gait and mobility; Translations: [Other symptoms involving nervous and musculoskeletal systems] Episodic Residual codes; unclassified (6 sources) Sleep disorder, unspecified; Translations: [Sleep disturbance, unspecified] 09-23-2022 Episodic Residual codes; unclassified (1 source) Difficulty sleeping ; Translations: [Sleep disorder, unspecified] 02-26-2025 Episodic Past or Other Problems Problem Classification Problem Date Documented Da te Episodic/Chronic Other non-traumatic joint disorders (1 source) Pain in right knee; Translations: [Pain in right knee] Onset: 07-04-2024 Episodic Other non-traumatic joint disorders (1 source) Pain in left shoulder; Translations: [Pain in left shoulder] Onset: 07-04-2024 Episodic Other screening for suspected conditions (not mental disorders or infectious disease) (6 sources) Disorder of ethmoidal sinus; Translations: [Abnormal findings on diagnostic imaging of skull and head, not elsewhere classified] Onset: 06-20-2024 02-20-2025 Episodic Residual codes; unclassified (1 source) Asymptomatic menopausal state; Translations: [Asymptomatic menopausal state] Onset: 11-13-2024 Episodic Results Test Name Value Interpretation Reference Range Facility Internal Medicine Office Vis yeyo 04-17-2025 Internal Medicine Office Visit [facility] Internal Medicine [facility] [place] [address] OFFICE VISIT Date of Service: 04/19/25 MR#: [id number] Acct: [id number] Name: REJI GARRETT Rep #: [id number] : 1950 Provider: Dr. Hermila goins MD Age/Sex: 74/F Location: [facility] Status: Signed Intake Vital Signs 02/26/25 10:44 04/19/25 11:38 Height 5 ft 5 in 5 ft 5 in Weight: 177 lb 4 oz BMI 29.5 BP 128/76 H Blood Pressure Location Rt brachial Position Sitting Respiration 16 Pulse 54 L Pulse Source Monitor Temp 97.4 F L Temp Source Temporal Pulse Oximetry (%) 98 Oxygen Delivery Method room air Intake Visit Reasons: 6 week follow up Chief Complaint: 6 w fu 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 Required: No Accompanied by: Self Is patient in pain?: No Allergies No Known Allergies Allergy (Verified 04/19/25 11:28) Medications ???Medication ???Instructions ???Recorded ???Confirmed ???Type calcium carbonate (Calcium 600) 600 mg PO BID 03/23/18 04/19/25 Hi story Lactobacillus acidophilus 250 500 mmu cells PO DAILY 01/05/23 History million cell capsule (Probiotic Acidophilus) dupilumab 200 mg/1.14 mL 300 mg subcut Q2W 04/28/23 5 History subcutaneous pen injector (Dupixent) hydroxyzine HCl 10 mg tablet 10 mg PO TID PRN anxiey #20 tabs 0 11/24/23 04/19/25 Rx estradiol 0.01% (0.1 mg/gram) See Rx Instructions vaginal 04/19/25 Rx vaginal cream (Estrace) .COMPLEX #42.5 grams CBD Oral (INFORMATIONAL USE 02/20/25 04/19/25 History ONLY-PT USES ORAL CBD) alendronate 70 mg tablet (Fosamax) 70 mg PO QWEEK #12 tabs 02/26/25 04/19/25 Rx aspirin 81 mg tablet 81 mg PO QDAY #90 tabs 02/26/25 Rx atorvastatin 10 mg tablet (Lipitor) 10 mg PO QHS #90 tabs 04/10/25 04/19/25 Rx losartan 25 mg tablet 25 mg PO DAILY #90 tabs 04/10/25 1 06/19/24 Rx trazodone 50 mg tablet 25 mg (1/2 x 50 mg) PO QHS #45 tab s 04/10/25 04/19/25 Rx cholecalciferol (vitamin D3) 25 25 mcg PO QDAY 04/19/25 04/19/25 H istory mcg (1,000 unit) capsule Have you fallen in the past year?: No Nurse's Note: follow up [facility] Medical History History of Clostridium difficile infection Wears glasses Wears dentures Anxiety Arthritis High cholesterol History of diverticulitis Former smoker Hypertension Abnormal mammogram Surgical History Hx of colonoscopy Hx of tooth extraction H/O breast biopsy Family History Mother Breast cancer Father Cancer liver Brother Skin cancer Social History adopted: No household members: none housing: house number of children: 1 current occupational status: retired current occupation: worked for a [employer] r[employer] current occupational exposures/hazards: No pets and animals: Yes history of recent travel: Yes out of country: Yes Smoking Status: Former smoker quit date: 06/14/01 pack-years: 32 Electronic Cigarette Use: not used second hand exposure: No alcohol intake: current alcohol intake frequency: holidays/special occasions only substance use type: does not use caffeine: No what type of physical activity do you participate in: none seatbelt use: always do you feel safe at home: Yes additional social history: Single HPI HPI Chief Complaint: 6 w fu Details: REJI GARRETT, is a 74 F who presents to the office today for a follow up.??? She is up to date on her routine blood work and screening.??? She would like her pneumonia shot today.??? She doesn't smoke and doesn't need refills today.??? She reports she is eating healthy.??? She reports her activity level is unchanged. She reports her anxiety has been doing ok. She took a dose of atarax a couple of weeks ago when she drove to [place], but otherwise hasn't really needed anything. She continues to tolerate the cholesterol medication without any problems. The patient reports she will take the trazodone and CBD gummy for her sleep. She reports her sleep has been doing well lately. The patient reports she has been taking her blood pressure medication as prescribed without problems. She reports this morning it was 120/82. She does monitor her salt intake. She is taking her fosamax without problems. At her last office visit, she was struggling with headaches. She reports that she underwent the surgery for her sinuses and feels that it went well. She reports she is still doing twice daily saline rinses and has a follow up with them in June. She states her headaches did significantly improve. She has no other questions or concerns today. ROS Const Constitution (more content not included)... Normal [facility] CBC W/Diff, Automatedon 10-2 -2024 Absolute Lymph 2.20 X10 3/uL Normal 0.83-4.51 [facility] Comment on above: Performed By: #### L 100.0100, L500.4100, L506.1001, L500.4050 #### [facility] [address] [place], [address] Absolute Neut 2.4 X10 3/uL Normal 2.0-7.7 [facility] Comment on above: Performed By: #### L 100.0100, L500.4100, L506.1001, L500.4050 #### [facility] [address] [place], [address] Basophils/100 WBC (Bld) 0.6 % Normal 0-1 [facility] Comment on above: Performed By: #### L 100.0100, L500.4100, L506.1001, L500.4050 #### [facility] [address] [place], [address] Eosinophils/100 WBC (Bld) 2.7 % Normal 0-5 [facility] Comment on above: Performed By: #### L 100.0100, L500.4100, L506.1001, L500.4050 #### [facility] [address] [place], [address] Erythrocyte distribution width (RBC) [Ratio] 15.4 % High 11.6-14.6 [facility] Comment on above: Performed By: #### L 100.0100, L500.4100, L506.1001, L500.4050 #### [facility] [address] [place], [address] Hematocrit (Bld) [Volume fraction] 41.0 % Normal 37-47 [facility] Comment on above: Performed By: #### L 100.0100, L500.4100, L506.1001, L500.4050 #### [facility] [address] [place], [address] Hemoglobin (Bld) [Mass/Vol] 13.0 g/dL Normal 12.0-15.0 [facility] Comment on above: Performed By: #### L 100.0100, L500.4100, L506.1001, L500.4050 #### [facility] [address] [place], [address] IG% 0.400 Normal 0.0-0.9 [facility] Comment on above: Result Comment: IG% - Immature Granulocytes (promyelocytes, myelocytes and metamyelocytes) > 1% indicates that a LEFT SHIFT is Present. Performed By: #### L 100.0100, L500.4100, L506.1001, L500.4050 #### [facility] [address] [place], [address] Lymphocytes/100 WBC (Bld) 42.2 % High 19-41 [facility] Comment on above: Performed By: #### L 100.0100, L500.4100, L506.1001, L500.4050 #### [facility] [address] [place], [address] MCH (RBC) [Entitic mass] 28.8 pg Normal 27.0-32.0 [facility] Comment on above: Performed By: #### L 100.0100, L500.4100, L506.1001, L500.4050 #### [facility] [address] [place], [address] MCHC (RBC) [Mass/Vol] 31.7 g/dL Low 32-36 [facility] Comment on above: Performed By: #### L 100.0100, L500.4100, L506.1001, L500.4050 #### [facility] [address] [place], [address] MCV (RBC) [Entitic vol] 90.7 fL Normal 81-99 [facility] Comment on above: Performed By: #### L 100.0100, L500.4100, L506.1001, L500.4050 #### [facility] [address] [place], [address] Monocytes/100 WBC (Bld) 9.0 % Normal 0-10 [facility] Comment on above: Performed By: #### L 100.0100, L500.4100, L506.1001, L500.4050 #### [facility] [facility] [address] [place], [address] Neutrophils/100 WBC (Bld) 45.1 % Low 47-70 [facility] Comment on above: Performed By: #### L 100.0100, L500.4100, L506.1001, L500.4050 #### [facility] [address] [place], [address] Nucleated RBC (Bld) [#/Vol] 0 10*3/uL Normal 0-5 [facility] Comment on above: Performed By: #### L 100.0100, L500.4100, L506.1001, L500.4050 #### [facility] [address] [place], [address] Platelet mean volume (Bld) [Entitic vol] 10.0 fL Normal 6.2-12.0 [facility] Comment on above: Performed By: #### L 100.0100, L500.4100, L506.1001, L500.4050 #### [facility] [address] [place], [address] Platelets (Bld) [#/Vol] 194 10*3/uL Normal 150-450 [facility] Comment on above: Performed By: #### L 100.0100, L500.4100, L506.1001, L500.4050 #### [facility] [address] [place], [address] RBC (Bld) [#/Vol] 4.52 10*6/uL Normal 4.2-5.4 [facility] Comment on above: Performed By: #### L 100.0100, L500.4100, L506.1001, L500.4050 #### [facility] [address] [place], [address] RDW SD 50.8 fl High 35.1-43.9 [facility] Comment on above: Performed By: #### L 100.0100, L500.4100, L506.1001, L500.4050 #### [facility] [address] [place], [address] WBC (Bld) [#/Vol] 5.2 10*3/uL Normal 4.4-11.0 [facility] Comment on above: Performed By: #### L 100.0100, L500.4100, L506.1001, L500.4050 #### [facility] [address] [place], [address] Comprehensive Metabolic Prof ndjuliana 04-05-2025 Albumin [Mass/Vol] 4.1 g/dL Normal 3.4-4.8 [facility] Comment on above: Performed By: #### L 100.0100, L500.4100, L506.1001, L500.4050 #### [facility] [address] [place], [address] Albumin/Globulin [Mass ratio] 1.6 {ratio} Normal 0.9-2.4 [facility] Comment on above: Performed By: #### L 100.0100, L500.4100, L506.1001, L500.4050 #### [facility] [address] [place], [address] ALK PHOS 72 U/L Normal 35-104 [facility] Comment on above: Performed By: #### L 100.0100, L500.4100, L506.1001, L500.4050 #### [facility] [address] [place], [address] ALT [Catalytic activity/Vol] 12 U/L Normal <=34 [facility] Comment on above: Performed By: #### L 100.0100, L500.4100, L506.1001, L500.4050 #### [facility] [address] [place], [address] AST [Catalytic activity/Vol] 17 U/L Normal <=31 [facility] Comment on above: Performed By: #### L 100.0100, L500.4100, L506.1001, L500.4050 #### [facility] [address] [place], [address] Bilirubin [Mass/Vol] 1.31 mg/dL High 0.00-1.30 [facility] Comment on above: Performed By: #### L 100.0100, L500.4100, L506.1001, L500.4050 #### [facility] [address] [place], [address] BUN/CRE 12.3 RATIO Normal 10-20 [facility] Comment on above: Performed By: #### L 100.0100, L500.4100, L506.1001, L500.4050 #### [facility] [address] [place], [address] Calcium [Mass/Vol] 8.9 mg/dL Normal 7.6-11.0 [facility] Comment on above: Performed By: #### L 100.0100, L500.4100, L506.1001, L500.4050 #### [facility] [address] [place], [address] Chloride [Moles/Vol] 109 mmol/L High 98-108 [facility] Comment on above: Performed By: #### L 100.0100, L500.4100, L506.1001, L500.4050 #### [facility] [address] [place], [address] CO2 [Moles/Vol] 25.9 mmol/L Normal 21.0-32.0 [facility] Comment on above: Performed By: #### L 100.0100, L500.4100, L506.1001, L500.4050 #### [facility] [address] [place], [address] Creatinine [Mass/Vol] 0.73 mg/dL Normal 0.70-1.20 [facility] Comment on above: Performed By: #### L 100.0100, L500.4100, L506.1001, L500.4050 #### [facility] [address] [place], [address] GAP 9 Normal 5-15 [facility] Comment on above: Performed By: #### L 100.0100, L500.4100, L506.1001, L500.4050 #### [facility] [address] [place], [address] GFR/1.73 sq M.predicted among non-blacks MDRD (S/P/Bld) [Vol rate/Area] 87 mL/min/{1.73_m2} Normal >60 [facility] Comment on above: Result Comment: mL/m in/1.73m2 CKD-EPI Creatinine Equation (2020) Performed By: #### L 100.0100, L500.4100, L506.1001, L500.4050 #### [facility] [address] [place], [address] Globulin (S) [Mass/Vol] 2.6 g/dL Normal 2.2-4.2 [facility] Comment on above: Performed By: #### L 100.0100, L500.4100, L506.1001, L500.4050 #### [facility] [address] [place], [address] Glucose [Mass/Vol] 92 mg/dL Normal 70-99 [facility] Comment on above: Performed By: #### L 100.0100, L500.4100, L506.1001, L500.4050 #### [facility] [address] [place], [address] Potassium [Moles/Vol] 4.1 mmol/L Normal 3.3-5.1 [facility] Comment on above: Performed By: #### L 100.0100, L500.4100, L506.1001, L500.4050 #### [facility] [address] [place], [address] Sodium [Moles/Vol] 144 mmol/L Normal 133-145 [facility] Comment on above: Performed By: #### L 100.0100, L500.4100, L506.1001, L500.4050 #### [facility] [address] [place], [address] T PROT 6.6 g/dL Normal 5.9-8.4 [facility] Comment on above: Performed By: #### L 100.0100, L500.4100, L506.1001, L500.4050 #### [facility] [address] [place], [address] Urea nitrogen [Mass/Vol] 9 mg/dL Normal 4-19 [facility] Comment on above: Performed By: #### L 100.0100, L500.4100, L506.1001, L500.4050 #### [facility] [address] [place], [address] Lipid Profileon 04-05-2025 CHOL:HDL 2.53 Normal [facility] Comment on above: Performed By: #### L 100.0100, L500.4100, L506.1001, L500.4050 ####[facility] [address] [place], [address] Cholesterol [Mass/Vol] 129 mg/dL Normal <=200 [facility] Comment on above: Result Comment: Chol esterol level, Desirable <200 mg/dL Borderline high cholesterol 200-239 mg/dL High cholesterol >=240 mg/dL Recommendations of the NCEP Adult Treatment Panel for the following risk-cutoff thresholds for the [place] population. Performed By: #### L 100.0100, L500.4100, L506.1001, L500.4050 ####[facility] [address] [place], [address] Cholesterol in HDL [Mass/Vol] 51 mg/dL Normal [facility] Comment on above: Result Comment: Ruba onal Cholesterol Education Program (NCEP) guidelines: <40 mg/dL: Low HDL-cholesterol (major risk factor for CHD) >= 60 mg/dL: High HDL-cholesterol (negative risk factor for CHD) HDL-cholesterol is affected by a number of factors, e.g. smoking, exercise, hormones, sex and age. Performed By: #### L 100.0100, L500.4100, L506.1001, L500.4050 ####[facility] [address] [place], [address] Cholesterol in LDL [Mass/Vol] 62 mg/dL Normal [facility] Comment on above: Result Comment: Bord kchhyk=440-653 mg/dL Higher Slod=026 mg/dL or greater Pearson Equation 2020 for LDL-C Performed By: #### L 100.0100, L500.4100, L506.1001, L500.4050 ####[facility] [address] [place], [address] Cholesterol in VLDL [Mass/Vol] 17 mg/dL Normal 5-40 [facility] Comment on above: Performed By: #### L 100.0100, L500.4100, L506.1001, L500.4050 ####[facility] [address] [place], [address] Triglyceride [Mass/Vol] 83 mg/dL Normal [facility] Comment on above: Result Comment: The drugs N-Acetylcysteine and Metamizole may falsely depress this assay. Normal range: <150 mg/dL Borderline High: 150-199 mg/dL High: 200-499 mg/dL Very High: >500 mg/dL Performed By: #### L 100.0100, L500.4100, L506.1001, L500.4050 ####[facility] [address] [place], [address] Vitamin D,25 Hydroxyon 04-05 Vitamin D 25-OH 27.7 ng/mL Low 30-100 [facility] Comment on above: Result Comment: Monica min D Status Deficiency: <20 ng/mL (50nmol/L) Insufficiency: 20-30 ng/mL (50-75 nmol/L) Sufficiency: 30-100 ng/mL (75-250 nmol/L) Toxicity: >100 ng/mL (>250 nmol/L) Performed By: #### L 100.0100, L500.4100, L506.1001, L500.4050 #### [facility] [address] [place], [address] Internal Medicine Office Vis iton 02-22-2025 Internal Medicine Office Visit [facility] [address] [place] [address] [place] [address] OFFICE VISIT Date of Service: 02/26/25 MR#: [id number] Acct: [id number] Name: REJI GARRETT Rep #: [id number] : 1950 Provider: Dr. Hermila goins MD Age/Sex: 74/F Location: [facility] Status: Signed Intake Vital Signs 11/13/24 13:19 02/20/25 12:47 02/26/25 10:44 Height 5 ft 5 in 5 ft 5 in 5 ft 5 in Weight: 172 lb BMI 28.6 BP 124/82 H Blood Pressure Location Lt brachial Position Sitting Respiration 16 Pulse 88 Pulse Source Monitor Temp 98.4 F Temp Source Temporal Pulse Oximetry (%) 98 Oxygen Delivery Method room air Intake Visit Reasons: 6 M FU 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 Required: No Is patient in pain?: Yes (headache) Pain scale (1-10): 3 Allergies No Known Allergies Allergy (Verified 02/26/25 10:34) Medications ???Medication ???Instructions ???Recorded ???Confirmed ???Type calcium carbonate (Calcium 600) 600 mg PO BID 03/23/18 02/26/25 Hi story Lactobacillus acidophilus 250 500 mmu cells PO DAILY 01/05/23 History million cell capsule (Probiotic Acidophilus) dupilumab 200 mg/1.14 mL 300 mg subcut Q2W 04/28/23 5 History subcutaneous pen injector (Dupixent) hydroxyzine HCl 10 mg tablet 10 mg PO TID PRN anxiey #20 tabs 0 11/24/23 02/26/25 Rx atorvastatin 10 mg tablet (Lipitor) 10 mg PO QHS #90 tabs 10/09/24 02/26/25 Rx losartan 25 mg tablet 25 mg PO DAILY #90 tabs 10/09/24 0 02/26/25 Rx trazodone 50 mg tablet 25 mg (1/2 x 50 mg) PO QHS #45 tab s 10/09/24 02/26/25 Rx estradiol 0.01% (0.1 mg/gram) See Rx Instructions vaginal 02/26/25 Rx vaginal cream (Estrace) .COMPLEX #42.5 grams CBD Oral (INFORMATIONAL USE 02/20/25 02/26/25 History ONLY-PT USES ORAL CBD) cetirizine 10 mg tablet (Zyrtec) 10 mg PO DAILY #14 tabs 02/20/25 0 02/26/25 Rx fluticasone propionate 50 1 spray intranasal DAILY #16 grams 02/20/25 02/26/25 Rx mcg/actuation nasal spray,suspension (Flonase Allergy Relief) alendronate 70 mg tablet (Fosamax) 70 mg PO QWEEK #12 tabs 02/26/25 02/26/25 Rx aspirin 81 mg tablet 81 mg PO QDAY #90 tabs 02/26/25 Rx doxycycline hyclate 100 mg capsule 100 mg PO BID 02/26/25 02/26/25 History prednisone 20 mg tablet 40 mg (2 x 20 mg) PO QDAY #10 tabs 02/26/25 02/26/25 Rx vancomycin 125 mg capsule 125 mg PO 4X/DAY #40 caps 02/26/25 02/26/25 Rx Have you fallen in the past year?: No Nurse's Note: Pt has had a constant headache since 02/20/25. Pt has had imitrex, excedrin, ibuprofen, Tylenol and a round of doxycycline. Pt states the only thing that is seeming to help is the doxycycline, as she does not need to take otc pain relivers as frequent. Pt will complete the course on 03/02/25. Pt Saw Dr. Loyd and will be having a sinus dilation in about 2 weeks. Pt describes the headache as a rubber band headache that started and is worse at the forehead and wraps around. Pt is unable to wear hair up. Pt states last eye exam was 4 years ago, pt states she does read book on her laptop frequently. Pt denies, nasal and ear pressure/discharge. Pt denies Jaw pain, hearing changes, vision changes, dizziness. Pt does c/o nausea but no vomiting. This makes her not want to eat, pt is senstive to light. PFSH Medical History History of Clostridium difficile infection Wears glasses Wears dentures Anxiety Arthritis High cholesterol History of diverticulitis Former smoker Hypertension Abnormal mammogram Surgical History Hx of colonoscopy Hx of tooth extraction H/O breast biopsy Family History Mother Breast cancer Father Cancer liver Brother Skin cancer Social History adopted: No household members: none housing: house number of children: 1 current occupational status: retired current occupation: worked for a [employer] current occupational exposures/hazards: No pets and animals: Yes history of recent travel: Yes out of country: Yes Smoking Status: Former smoker quit date: 06/14/01 pack-years: 32 Electronic Cigarette Use: not used second hand exposure: No alcohol intake: current alcohol intake frequency: holidays/special occasions only substance use type: does not use caffeine: No what type of physical activity do you participate in: none seatbelt use: always do you feel safe at home: Yes additional social history: Single HPI HPI Details: REJI GARRETT, is a 74 F who presents to the office today for a follow up.??? She is due for some routine blood work and is up to date on her screenin (more content not included)... Normal [facility] Brain/Head without Contrasto n 02-20-2025 Brain/Head without Contrast [facility] Imaging Services [address] [place] [address] Brain/Head without Contrast MR#: [id number] Acct: [id number] Name: REJI GARRETT Rep #: [id number] : 1950 F 74 From: Sher desai MD PCP: Dr. Hermila Macario MD Status: REG ER Study: Brain/Head without Contrast Date of Exam: 03/08 Exam# [id number] Ordering Dr: Estrella No DO PROCEDURE: BRAIN/HEAD WITHOUT CONTRAST 02/20/2025 REASON FOR EXAM: PAIN 1 day history of headaches. Hypertension. TECHNIQUE: Procedure Code: CTBR Modality: CT Procedure: BRAIN/HEAD WITHOUT CONTRAST Coronal and Sagittal reconstruction series were provided. One or more dose reduction techniques were used (e.g., Automated exposure control, adjustment of the mA and/or kV according to patient size, use of iterative reconstruction technique. RADIATION DOSE SUMMARY: CTDlvol: 44.99 mGy DLP: 796.11 mGycm COMPARISON: None FINDINGS: Brain: Tiny hypodensities in the basal ganglia bilaterally suggestive of old lacunar infarcts. CSF Spaces: Mild generalized cerebral atrophy Sinuses/Mastoids: There is dense opacification of the sphenoid sinus in keeping with a chronic sphenoid sinusitis. Partial opacification of the left ethmoid sinus. Mucosal thickening along the inferior aspect of the left maxillary sinus. 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 Dense opacification of the sphenoid sinus as well as partial opacification of the left ethmoid sinus. Mucosal thickening along the inferior aspect of the left maxillary sinus. Reading Location: [facility] CC: Dr. Hermila Macario MD; Dr. 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 Hermila Macario MD Status:DEP ER Location: ED HPI History of Present Illness Chief Complaint: Headache Informant: patient Narrative Narrative: Patient is a 74-year-old female with history of hypertension and tension headaches presenting with worsening headache. Patient states she gets frequent headaches worse over the past year. She saw her PCP about it and thought they were tension headaches and suggested soft tissue massage to her neck. She has over the past 3 weeks she has been having worsening headache in both frequency and duration. She states she developed headache last night while watching TV. Started in her frontal area and then started to radiate to the back of her head. Denies any sudden intense onset (thunderclap headache). Does have some associated photophobia. Denies any nausea or vomiting or blurred vision. States has some minimal pain in her upper neck with this. Denies any fever or chills. Today I called her primary care office who recommend taking ibuprofen and Tylenol. She has had 800 mg of ibuprofen x 2 as well as 1000 g of Tylenol with no relief which is what prompted her to come to the emergency room. She denies any numbness or tingling. Any weakness with walking. No rash. No other complaints or concerns at this time [facility] Medical History History of Clostridium difficile infection Wears glasses Wears dentures Anxiety Arthritis High cholesterol History of diverticulitis Former smoker Hypertension Abnormal mammogram Home Medications ???Medication ???Instructions ???Recorded ???Last Taken ???Type calcium carbonate (Calcium 600) 600 mg PO BID 03/23/18 Unknown His tory Lactobacillus acidophilus 250 500 mmu cells PO DAILY 01/05/23 Un known History million cell capsule (Probiotic Acidophilus) dupilumab 200 mg/1.14 mL 300 mg subcut Q2W 04/28/23 Unknown History subcutaneous pen injector (Dupixent) hydroxyzine HCl 10 mg tablet 10 mg PO TID PRN anxiey #20 tabs 0 11/24/23 Unknown Rx atorvastatin 10 mg tablet (Lipitor) 10 mg PO QHS #90 tabs 10/09/24 Unknown Rx losartan 25 mg tablet 25 mg PO DAILY #90 tabs 10/09/24 U nknown Rx trazodone 50 mg tablet 25 mg (1/2 x 50 mg) PO QHS #45 tab s 10/09/24 Unknown Rx alendronate 70 mg tablet (Fosamax) 70 mg PO QWEEK #4 tabs 01/26/25 Unknown Rx estradiol 0.01% (0.1 mg/gram) See Rx Instructions vaginal Unknown Rx vaginal cream (Estrace) .COMPLEX #42.5 grams CBD Oral (INFORMATIONAL USE 02/20/25 Unknown History ONLY-PT USES ORAL CBD) cetirizine 10 mg tablet (Zyrtec) 10 mg PO DAILY #14 tabs 02/20/25 U nknown Rx fluticasone propionate 50 1 spray intranasal DAILY #16 grams 02/20/25 Unknown Rx mcg/actuation nasal spray,suspension (Flonase Allergy Relief) Allergy/AdvReac Type Severity Reaction Status Date / Time No Known Allergies Allergy Verified 02/20/25 12:48 Family History Mother Breast cancer Father Cancer liver Brother Skin cancer Surgical History Hx of colonoscopy Hx of tooth extraction H/O breast biopsy Social History adopted: No household members: none housing: house number of children: 1 current occupational status: retired current occupation: worked for a [employer] r[employer] current occupational exposures/hazards: No pets and animals: Yes history of recent travel: Yes out of country: Yes Smoking Status: Former smoker quit date: 06/14/01 pack-years: 32 Electronic Cigarette Use: not used second hand exposure: No alcohol intake: current alcohol intake frequency: holidays/special occasions only substance use type: does not use caffeine: No what type of physical activity do you participate in: none seatbelt use: always do you feel safe at home: Yes additional social history: Single ROS ROS ED Constitutional Constitutional ED: Denies chills Eyes Eyes: Reports other Details: Photophobia ; Denies blurry vision or change in vision Cardiovascular Cardiovascular: Denies chest pain Respiratory/Chest Respiratory/Chest: Denies cough or dyspnea Gastrointestinal Gastrointestinal: Denies abdominal pain, nausea or vomiting Musculoskeletal Musculoskeletal: Denies arthralgias or myalgias Integumentary Denies rash Neurologic Neurologic: Reports headache(s); Denies paresthesias or weakness Psychiatric Psychiatric: Denies anxiety Hematologic/Lympha (more content not included)... Normal [facility] Clinical Documentation Spec Office Visit Reporton 11-13-2024 Clinical Documentation Spec Office Visit Report [facility] [address], [address] [place] [address] OFFICE VISIT Date of Service: 11/13/24 MR#: [id number] Acct: [id number] Name: REJI GARRETT Rep #: [id number] : 1950 Provider: GABRIELLA cárdenas Age/Sex: 74/F Location: [facility] [place] Status: Signed Intake Vital Signs 10/27/23 13:59 06/29/24 14:25 11/13/24 13:13 11/13/24 13:19 Height 5 ft 5 in 5 ft 5 in 5 ft 5 in 5 ft 5 in Weight: 183 lb 179 lb 8 oz BMI 30.4 29.8 BP 136/82 H 108/68 Blood Pressure Location Lt brachial Position Sitting Respiration 12 Pulse 63 Pulse Source Monitor Temp 97.7 F L Pulse Oximetry (%) 97 Oxygen Delivery Method room air 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 Complaint: Annual 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 Required: No Is patient in pain?: No Allergies No Known Allergies Allergy (Verified 11/13/24 13:24) Medications ???Medication ???Instructions ???Recorded ???Confirmed ???Type calcium carbonate (Calcium 600) 600 mg PO BID 03/23/18 11/13/24 Hi story Lactobacillus acidophilus 250 500 mmu cells PO DAILY 01/05/23 History million cell capsule (Probiotic Acidophilus) dupilumab 200 mg/1.14 mL 300 mg subcut Q2W 04/28/23 5 History subcutaneous pen injector (Dupixent) estradiol 0.01% (0.1 mg/gram) See Rx Instructions vaginal 11/13/24 Rx vaginal cream (Estrace) .COMPLEX #42.5 grams hydroxyzine HCl 10 mg tablet 10 mg PO TID PRN anxiey #20 tabs 0 11/24/23 11/13/24 Rx alendronate 70 mg tablet (Fosamax) 70 mg PO QWEEK #12 tabs 07/16/24 11/13/24 Rx atorvastatin 10 mg tablet (Lipitor) 10 mg PO QHS #90 tabs 10/09/24 11/13/24 Rx losartan 25 mg tablet 25 mg PO DAILY #90 tabs 10/09/24 0 11/13/24 Rx trazodone 50 mg tablet 25 mg (1/2 x 50 mg) PO QHS #45 tab s 10/09/24 11/13/24 Rx Is last menstrual period known: No Post menopausal: Yes Patient : No : No PFSH Medical History History of Clostridium difficile infection Wears glasses Wears dentures Anxiety Arthritis High cholesterol History of diverticulitis Former smoker Hypertension Abnormal mammogram Surgical History Hx of colonoscopy Hx of tooth extraction H/O breast biopsy Family History Mother Breast cancer Father Cancer liver Brother Skin cancer Social History adopted: No household members: none housing: house number of children: 1 current occupational status: retired current occupation: worked for a [employer] current occupational exposures/hazards: No pets and animals: Yes history of recent travel: Yes out of country: Yes Smoking Status: Former smoker quit date: 06/14/01 pack-years: 32 Electronic Cigarette Use: not used second hand exposure: No alcohol intake: current alcohol intake frequency: holidays/special occasions only substance use type: does not use caffeine: No what type of physical activity do you participate in: none seatbelt use: always do you feel safe at home: Yes additional social history: Single History 1 Elective abortions Hx Para 1 Spontaneous abortions Hx # Term Pregnancies Ectopic pregnancies Hx # Pregnancies Multiple births # of living children 1 Past Pregnancies Del. Date Name GA/Weeks Outcome Route Bth Weight Gen Labor Lgth Anesthesia Del Locatn Provider FOB Unknown [facility] Encounter for routine gynecological examination Details: REJI GARRETT is a 74 year old who presents for annual exam. Denies concerns. Using estradiol cream twice a week, not needing refill yet. Last PAP: NA History of abnormal PAP: no Last mammogram: 05/2024 History of abnormal mammogram: no Colon cancer screenin Other preventative health care screenings: Ruth Female Reproductive History Questions: metorrhagia: No and sexually active: No ROS Const Constitutional: Denies fatigue, weight gain or weight loss Cardio Card: Denies chest pain Resp Resp: Denies cough or dyspnea on exertion GI GI: Denies abdominal pain, bloating, change in stool character, constipation or vomiting : Reports as per HPI; Denies difficulty voiding, pelvic pain, urinary frequency, urinary incontinence, urinary urgency, vaginal discharge or vaginal pruritus Exam Const General: cooperative, healthy appearing, no acute distress and well developed Orientation: alert, oriented to person and oriented to place HENMT Head: normal to inspection Neck Neck: normal visual inspection Thyroid: thyroid normal Lymphatic: no lymphadenopathy noted (more content not included)... Normal [facility] Knee 4 or More Viewson 07-04 Knee 4 or More Views [facility] Radiology [address] [place] [address] Knee 4 or More Views MR#: [id number] Acct: [id number] Name: REJI GARRETT Rep #: [id number] : 1950 F 73 From: Gina moura MD PCP: Dr. Hermila Macario MD Status: DEP AMB Study: Knee 4 or More Views Date of Exam: 07/04/24 Exam# [id number] Ordering Dr: Hermlia Macario MD [id number] HISTORY: chronic pain. TECHNIQUE: XR Knee Complete 4 Views or More. COMPARISON: None. FINDINGS: BONES : No acute fracture identified. Mineralization unremarkable. JOINTS: No dislocation. Mild medial compartment joint space narrowing with small osteophytes. Trace joint effusion. RAD/Knee 4 or More Views IMPRESSION: No acute fracture or dislocation identified in the right knee. Mild osteoarthritis. Electronically Signed: Gina Tate MD at 9:08 EST , CC: Dr. Hermila Macario MD [employer] Furniture Repairer: Signed Normal [facility] Shoulder min 2 Viewson 07-04 Shoulder min 2 Views [facility] Radiology [address] [place] [address] Shoulder min 2 Views MR#: [id number] Acct: [id number] Name: REJI GARRETT Rep #: [id number] : 1950 F 73 From: Gina moura MD PCP: Dr. Hermila Macario MD Status: DEP AMB Study: Shoulder min 2 Views Date of Exam: 07/04/24 Exam# [id number] Ordering Dr: Hermila Macario MD [id number] HISTORY: chronic pain. TECHNIQUE: XR Shoulder Min 2 Views. COMPARISON: None. FINDINGS: BONES : No acute fracture identified. Mineralization unremarkable. JOINTS: No dislocation. Mild degenerative change. SOFT TISSUES: Left lung apex clear. RAD/Shoulder min 2 Views IMPRESSION: No acute fracture or dislocation identified in the left shoulder. Mild osteoarthritis. Electronically Signed: Gina Tate MD at 9:07 EST , CC: Dr. Hermila Macario MD [employer] Furniture Repairer: Signed Normal [facility] Internal Medicine Office Vis iton 06-28-2024 Internal Medicine Office Visit [facility] [address] [place] [address] [place] [address] OFFICE VISIT Date of Service: 06/29/24 MR#: [id number] Acct: [id number] Name: REJI GARRETT Rep #: [id number] : 1950 Provider: Dr. Hermila goins MD Age/Sex: 73/F Location: [facility] Status: Signed Intake Vital Signs 10/27/23 13:59 06/29/24 14:25 Height 5 ft 5 in 5 ft 5 in Weight: 183 lb BMI 30.4 BP 136/82 H Blood Pressure Location Lt brachial Position Sitting Respiration 12 Pulse 63 Pulse Source Monitor Temp 97.7 F L Temp Source Temporal Pulse Oximetry (%) 97 Oxygen Delivery Method room air Intake Visit Reasons: RT KNEE PAIN Accompanied by: Self Is patient in pain?: No (right kne) Allergies No Known Allergies Allergy (Verified 06/29/24 14:23) Medications ???Medication ???Instructions ???Recorded ???Confirmed ???Type calcium carbonate (Calcium 600) 600 mg PO BID 03/23/18 06/29/24 History Lactobacillus acidophilus 250 500 mmu cells PO DAILY 01/05/23 06/29/24 History million cell capsule (Probiotic Acidophilus) dupilumab 200 mg/1.14 mL 300 mg subcut Q2W 04/28/23 06/29/24 History subcutaneous pen injector (Dupixent) estradiol 0.01% (0.1 mg/gram) See Rx Instructions vaginal 10/18/23 06/29/24 Rx vaginal cream (Estrace) .COMPLEX #42.5 grams vancomycin 125 mg capsule 125 mg PO 4X/DAY PRN 10/27/23 06/29/24 History hydroxyzine HCl 10 mg tablet 10 mg PO TID PRN anxiey #20 tabs 11/24/23 06/29/24 Rx alendronate 70 mg tablet (Fosamax) 70 mg PO QWEEK #12 tabs 01/29/24 06/29/24 Rx atorvastatin 10 mg tablet (Lipitor) 10 mg PO QHS #90 tabs 04/17/24 06/29/24 Rx losartan 25 mg tablet 25 mg PO DAILY #90 tabs 04/17/24 06/29/24 Rx trazodone 50 mg tablet 25 mg (1/2 x 50 mg) PO QHS #45 tabs 04/24/24 06/29/24 Rx Have you fallen in the past year?: No PFSH Medical History History of Clostridium difficile infection Wears glasses Wears dentures Anxiety Arthritis High cholesterol History of diverticulitis Former smoker Hypertension Abnormal mammogram Surgical History Hx of colonoscopy Hx of tooth extraction H/O breast biopsy Family History Mother Breast cancer Father Cancer liver Brother Skin cancer Social History (Updated 06/29/24 @ 14:[address] Hermila Macario MD) adopted: No household members: none housing: house number of children: 1 current occupational status: retired current occupation: worked for a [employer] r[employer] current occupational exposures/hazards: No pets and animals: Yes history of recent travel: Yes out of country: Yes Smoking Status: Former smoker quit date: 06/14/01 pack-years: 32 Electronic Cigarette Use: not used second hand exposure: No alcohol intake: current alcohol intake frequency: holidays/special occasions only substance use type: does not use caffeine: No what type of physical activity do you participate in: none seatbelt use: always do you feel safe at home: Yes additional social history: Single HPI HPI Details: REJI GARRETT, is a 73 F who presents to the office today for a follow up.??? She is up to date on her routine blood work and is up to date on her screening.??? She isn't due for any immunizations.??? She doesn't smoke and does not need refills today.??? She reports she is eating healthy.??? She is limited in her activity due to joint pain. She reports she hasn't really needed any atarax for driving. She reports as long as she stays off the highway, she is doing fine. She states she has been doing well without any concerns of anxiety. She continues to tolerate the cholesterol medication without any problems. The patient reports she will take the trazodone and CBD gummy for her sleep. She reports she did replace her mattress which really seemed to help. She has been sleeping better since she was last seen. The patient reports she has been taking her blood pressure medication as prescribed without problems. She is monitoring her blood pressure at home very occasionally and reports it was 115/83. She does monitor her salt intake. She is taking her fosamax without problems. The patient has concerns about right knee pain. She reports that it hurts every day. She has been wearing a knee brace every day which helps a little bit. She does take ibuprofen for other reasons (headaches), but doesn't feel it has been helpful for her knee at all. She reports a friend suggested a cortisone shot which she is interested in. 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 She states it 'popped out of the socket.' She denies any recent falls or injuries that have affected her knee. She reports it is anteri (more content not included)... Normal [facility] SCRN MAMM (CAD)W/RUIZ BILATo n 05-22-2024 SCRN MAMM (CAD)W/RUIZ BILAT [facility] Imaging Services [address] [place], [place] [address] SCRN MAMM (CAD)W/RUIZ BILAT MR#: [id number] Acct: [id number] Name: REJI GARRETT Rep #: [id number] : 1950 F 73 From: Sher desai MD PCP: Dr. Hermila Macario MD Status: REG 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 Routine annual screening examination. PERTINENT HISTORY: Mother with breast cancer. Remote left excisional breast biopsy. TECHNIQUE: Digital bilateral breast ruiz (3D mammographic acquisition) in the CC and MLO projections. 2-D mediolateral oblique (MLO) and craniocaudad (CC) views of both breasts were obtained. CAD: Full Field Digital Mammography with Computer Added Detection was performed. COMPARISON: Comparison is made with prior study May 18, 2023 and April 22, 2022. FINDINGS: Breast Composition: The breasts are heterogeneously dense, which may obscure small masses. There are no dominant masses or suspicious calcifications. Stable small bilateral axillary lymph nodes. No other significant abnormalities are identified. There has been no significant change since the prior study. BI/SCRN MAMM (CAD)W/RUIZ BILAT IMPRESSION: Stable bilateral screening mammogram. Yearly follow-up mammogram recommended. (A) ASSESSMENT CATEGORY: BIRADS Category 2: Benign. A letter regarding these results will be sent to the patient by the facility within 30 days. Approximately 10% of breast cancers are not detected by mammography. A normal mammogram should not delay biopsy of a clinically suspicious abnormality. [id number] Electronically Signed: Sher Dhaliwal MD at 8:39 EST , CC: GABRIELLA Chung; Dr. 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 Chloride [Moles/Vol] 107 mmol/L 98-107 [facility] Eosinophils/100 WBC (Bld) 3.3 % 0-5 [facility] Glucose [Mass/Vol] 94 mg/dL 74-106 [facility] Neutrophils (Bld) [#/Vol] 2.6 10*3/uL 2.0-7.7 [facility] Neutrophils/100 WBC (Bld) 51.2 % 47-70 [facility] Potassium [Moles/Vol] 4.0 mmol/L 3.5-5.1 [facility] Protein [Mass/Vol] 7.2 g/dL 6.4-8.2 [facility] Sodium [Moles/Vol] 143 mmol/L 136-145 [facility] WBC (Bld) [#/Vol] 5.1 10*3/uL 4.4-11.0 [facility] Blood erythrocytes count (nu mber/volume)Ordered By: Hermila Macario on 04-28-2023 RBC (Bld) [#/Vol] 4.90 10*6/uL 4.2-5.4 [facility] Blood hemoglobin measurement (mass/volume)Ordered By: Hermila Macario on 04-28-2023 Hemoglobin (Bld) [Mass/Vol] 13.9 g/dL 12.0-15.0 [facility] Blood lymphocytes/100 leukoc ytesOrdered By: Hermila Macario on 04-28-2023 Lymphocytes/100 WBC (Bld) 34.8 % 19-41 [facility] Blood monocytes/100 leukocyt esOrdered By: Hermila Macario on 04-28-2023 Monocytes/100 WBC (Bld) 9.7 % 0-10 [facility] Blood platelet mean volumeOr dered By: Hermila Macario on 04-28-2023 Platelet mean volume (Bld) [Entitic vol] 10.5 fL 6.2-12.0 [facility] Determination of erythrocyte mean corpuscular volume (MCV)Ordered By: Hermila Macario on 04-28-2023 MCV (RBC) [Entitic vol] 92.0 fL 81-99 [facility] Erythrocyte sedimentation ra teOrdered By: Hermila Macario on 04-28-2023 ESR (Bld) [Velocity] 6 mm/h 0-30 [facility] Hematocrit Auto (Bld) [Volum e fraction]Ordered By: Hermila Macario on 04-28-2023 Hematocrit (Bld) [Volume fraction] 45.1 % 37-47 [facility] Laboratory - Chemistry and C hemistry - challengeOrdered By: Hermila Macario on 04-28-2023 ALP [Catalytic activity/Vol] 85 U/L 45-117 [facility] ALT [Catalytic activity/Vol] 31 U/L 13-56 [facility] CO2 [Moles/Vol] 29.0 mmol/L 21.0-32.0 [facility] Globulin (S) [Mass/Vol] 3.4 g/dL 2.2-4.2 [facility] Urea nitrogen/Creatinine [Mass ratio] 17.0 mg/mg 10-20 [facility] Laboratory - Hematology and Cell countsOrdered By: Hermila Macario on 04-28-2023 Erythrocyte distribution width (RBC) [Entitic vol] 49.5 fL 35.1-43.9 [facility] Erythrocyte distribution width (RBC) [Ratio] 14.5 % 11.6-14.6 [facility] Immature granulocytes/100 WBC (Bld) 0.200 % 0.0-0.9 [facility] Comment on above: IG% - Immature Granu locytes (promyelocytes, myelocytes and metamyelocytes) > 1% indicates that a LEFT SHIFT is Present. MCH (RBC) [Entitic mass] 28.4 pg 27.0-32.0 [facility] Nucleated RBC/100 WBC (Bld) [Ratio] 0 % 0-5 [facility] MCHC Auto (RBC) [Mass/Vol]Or dered By: Hermila Macario on 04-28-2023 MCHC (RBC) [Mass/Vol] 30.8 g/dL 32-36 [facility] No Panel InformationOrdered By: Hermila Macario on 04-28-2023 Estimated GFR (MDRD) Amer 88 mL/min >60 [facility] Comment on above: GFR Calc Estimated GFR (MDRD) Non-Af Amer 73 mL/min >60 [facility] Comment on above: Non- GFR Calc Platelets bldOrdered By: Zechariah Macario on 04-28-2023 Platelets (Bld) [#/Vol] 222 10*3/uL 150-450 [facility] Serum or plasma albumin clifford urement (mass/volume)Ordered By: Hermila Macario on 04-28-2023 Albumin [Mass/Vol] 3.8 g/dL 3.2-5.0 [facility] Serum or plasma albumin/glob ulin mass ratioOrdered By: Hermila Macario on 04-28-2023 Albumin/Globulin [Mass ratio] 1.1 {ratio} 0.9-2.4 [facility] Serum or plasma calcium clifford urement (mass/volume)Ordered By: Hermila Macario on 04-28-2023 Calcium [Mass/Vol] 9.1 mg/dL 8.5-10.1 [facility] Serum or plasma creatinine m easurement (mass/volume)Ordered By: Hermila Macario on 04-28-2023 Creatinine [Mass/Vol] 0.82 mg/dL 0.55-1.02 [facility] Comment on above: The validity of the calculated GFR & GFRAA in patients over 70 years has not been determined. Clinical correlation is essential. Serum or plasma urea nitroge n measurement (mass/volume)Ordered By: Hermila Macario on 04-28-2023 Urea nitrogen [Mass/Vol] 14 mg/dL 7-18 [facility] Thin prep Papanicolaou smear with manual screeningOrdered By: Hermila Macario on 04-28-2023 Thin prep Papanicolaou smear with manual screening 16 U/L 15-37 [facility] Thin prep Papanicolaou smear with manual screening 7 5-15 [facility] C. difficile Ql (Stl)Ordered By: Dr. Macario on 10-21-2022 C. difficile GDH Antigen & Toxins Toxigenic C. difficile [facility] C. difficile Ql (Stl)Ordered By: Hermila Macario on 10-20-2022 C. difficile GDH Antigen & Toxins Toxigenic C. difficile [facility] Clostridium difficile detect ion by polymerase chain reactionOrdered By: Hermila Macario on 10-20-2022 C. difficile DNA ROSELINE+probe Ql (Unsp spec) [facility] Clostridium difficile detect ion by polymerase chain reactionOrdered By: Dr. Macario on 10-20-2022 C. difficile DNA ROSELINE+probe Ql (Unsp spec) [facility] EP PanelOrdered By: Dr. Luis mcneil on 09-29-2022 Gastrointestinal pathogens panel ROSELINE+probe (Stl) [facility] C. difficile Ql (Stl)Ordered By: Dr. Macario on 09-28-2022 C. difficile GDH Antigen & Toxins Toxigenic C. difficile [facility] Clostridium difficile detect ion by polymerase chain reactionOrdered By: Dr. Macario on 09-28-2022 C. difficile DNA ROSELINE+probe Ql (Unsp spec) [facility] C. difficile Ql (Stl)Ordered By: Hermila Macario on 09-27-2022 C. difficile GDH Antigen & Toxins Toxigenic C. difficile [facility] Clostridium difficile detect ion by polymerase chain reactionOrdered By: Hermila Macario on 09-27-2022 C. difficile DNA ROSELINE+probe Ql (Unsp spec) [facility] Giardia lamblia ag stool EIA Ordered By: Dr. Macario on 09-27-2022 G. lamblia Ag IA Ql (Stl) Negative Negative [facility] Comment on above: Performed at: [address] Director: Vargas Royal PhD, Phone: [phone] No Panel InformationOrdered By: Dr. Macario on 09-27-2022 Stool Calprotectin 600 ug/g 0-120 [facility] Comment on above: Concentration Interp retation Follow-Up<16 - 50 ug/g Normal None>50 -120 ug/g Borderline Re-evaluate in 4-6 weeks >120 ug/g Abnormal Repeat as clinically indicatedPerformed at: [facility] [id number] Director: Thais Carrillo MD, Phone: [phone] Stool enteric pathogen panel by probe and target amplification methodOrdered By: Hermila Macario on 09-27-2022 Gastrointestinal pathogens panel ROSELINE+probe (Stl) [facility] Basophil percentageOrdered B y: Dr. Macario on 09-23-2022 Bilirubin [Mass/Vol] 1.00 mg/dL 0.20-1.00 [facility] Comment on above: For patients on eltr ombopag therapy, use of Dimension [place] TBIL is not recommended. Chloride [Moles/Vol] 111 mmol/L 98-107 [facility] Cholesterol [Mass/Vol] 136 mg/dL <200 [facility] Comment on above: <200 mg/dL Desirable 200-240 mg/dL Borderline >240 mg/dL High Risk Glucose [Mass/Vol] 107 mg/dL 74-106 [facility] Comment on above: Fasting Glucose resu lt from 100 to 125 mg/dL suggests IMPAIRED HOMEOSTASIS per A.D.A. criteria. Potassium [Moles/Vol] 3.7 mmol/L 3.5-5.1 [facility] Protein [Mass/Vol] 6.5 g/dL 6.4-8.2 [facility] Sodium [Moles/Vol] 143 mmol/L 136-145 [facility] Triglyceride [Mass/Vol] 133 mg/dL <199 [facility] Comment on above: The drugs N-Acetylcy steine and Metamizole may falsely depress this assay.Serum Triglycerides Reference Interval Normal <150 mg/dL Borderline high 150 - 199 mg/dL High 200 - 499 mg/dL Very High > or = 500 mg/dL Laboratory - Chemistry and C hemistry - challengeOrdered By: Dr. Macario on 09-23-2022 ALP [Catalytic activity/Vol] 70 U/L 45-117 [facility] ALT [Catalytic activity/Vol] 14 U/L 13-56 [facility] CO2 [Moles/Vol] 29.0 mmol/L 21.0-32.0 [facility] Globulin (S) [Mass/Vol] 2.9 g/dL 2.2-4.2 [facility] Urea nitrogen/Creatinine [Mass ratio] 16.7 mg/mg 10-20 [facility] No Panel InformationOrdered By: Dr. Macario on 09-23-2022 Estimated GFR (MDRD) Amer 103 mL/min >60 [facility] Comment on above: GFR Calc Estimated GFR (MDRD) Non-Af Amer 85 mL/min >60 [facility] Comment on above: Non- GFR Calc Serum or plasma albumin clifford urement (mass/volume)Ordered By: Dr. Macario on 09-23-2022 Albumin [Mass/Vol] 3.6 g/dL 3.2-5.0 [facility] Serum or plasma albumin/glob ulin mass ratioOrdered By: Dr. Macario on 09-23-2022 Albumin/Globulin [Mass ratio] 1.2 {ratio} 0.9-2.4 [facility] Serum or plasma calcium clifford urement (mass/volume)Ordered By: Dr. Macario on 09-23-2022 Calcium [Mass/Vol] 9.4 mg/dL 8.5-10.1 [facility] Serum or plasma cholesterol in HDL measurement (mass/volume)Ordered By: Dr. Macario on 09-23-2022 Cholesterol in HDL [Mass/Vol] 40 mg/dL >40 [facility] Comment on above: The drugs N-Acetylcy steine and Metamizole may falsely depress this assay. Reference Range HDL <40 mg/dL Low HDL Cholesterol HDL >or= 60 mg/dL High HDL Cholesterol Serum or plasma cholesterol in VLDL measurement (mass/volume)Ordered By: Dr. Macario on 09-23-2022 Cholesterol in VLDL [Mass/Vol] 27 mg/dL 5-40 [facility] Serum or plasma creatinine m easurement (mass/volume)Ordered By: Dr. Macario on 09-23-2022 Creatinine [Mass/Vol] 0.72 mg/dL 0.55-1.02 [facility] Comment on above: The validity of the calculated GFR & GFRAA in patients over 70 years has not been determined. Clinical correlation is essential. Serum or plasma low density lipoprotein (LDL) cholesterol measurement (mass/volume)Ordered By: Dr. Macario on 09-23-2022 Cholesterol in LDL [Mass/Vol] 69 mg/dL 0-130 [facility] Serum or plasma urea nitroge n measurement (mass/volume)Ordered By: Dr. Macario on 09-23-2022 Urea nitrogen [Mass/Vol] 12 mg/dL 7-18 [facility] Thin prep Papanicolaou smear with manual screeningOrdered By: Dr. Macario on 09-23-2022 Thin prep Papanicolaou smear with manual screening 12 U/L 15-37 [facility] Thin prep Papanicolaou smear with manual screening 3 5-15 [facility] Absolute lymphocyte countOrd ered By: Dr. Garcia on 07-10-2022 Lymphocytes Auto (Unsp spec) [#/Vol] 0.32 10*3/uL 0.83-4.51 [facility] Basophil percentageOrdered B y: Dr. Garcia on 07-10-2022 Basophils/100 WBC (Bld) 0.3 % 0-1 [facility] Chloride [Moles/Vol] 98 mmol/L 98-107 [facility] Eosinophils/100 WBC (Bld) 6.8 % 0-5 [facility] Glucose [Mass/Vol] 77 mg/dL 74-106 [facility] Neutrophils (Bld) [#/Vol] 5.6 10*3/uL 2.0-7.7 [facility] Neutrophils/100 WBC (Bld) 80.8 % 47-70 [facility] Potassium [Moles/Vol] 3.1 mmol/L 3.5-5.1 [facility] Sodium [Moles/Vol] 136 mmol/L 136-145 [facility] WBC (Bld) [#/Vol] 6.9 10*3/uL 4.4-11.0 [facility] Blood erythrocytes count (nu mber/volume)Ordered By: Dr. Garcia on 07-10-2022 RBC (Bld) [#/Vol] 4.46 10*6/uL 4.2-5.4 [facility] Blood hemoglobin measurement (mass/volume)Ordered By: Dr. Garcia on 07-10-2022 Hemoglobin (Bld) [Mass/Vol] 13.8 g/dL 12.0-15.0 [facility] Blood lymphocytes/100 leukoc ytesOrdered By: Dr. Garcia on 07-10-2022 Lymphocytes/100 WBC (Bld) 4.6 % 19-41 [facility] Blood manual differential co mment interpretation (narrative result)Ordered By: Dr. Garcia on 07-10-2022 Manual differential comment Kaiden (Bld) [Interp] SCANNED [facility] Comment on above: LYMPHOPENIA Blood monocytes/100 leukocyt esOrdered By: Dr. Garcia on 07-10-2022 Monocytes/100 WBC (Bld) 7.1 % 0-10 [facility] Blood platelet mean volumeOr dered By: Dr. Garcia on 07-10-2022 Platelet mean volume (Bld) [Entitic vol] 10.3 fL 6.2-12.0 [facility] Determination of erythrocyte mean corpuscular volume (MCV)Ordered By: Dr. Garcia on 07-10-2022 MCV (RBC) [Entitic vol] 94.4 fL 81-99 [facility] Hematocrit Auto (Bld) [Volum e fraction]Ordered By: Dr. Garcia on 07-10-2022 Hematocrit (Bld) [Volume fraction] 42.1 % 37-47 [facility] Laboratory - Chemistry and C hemistry - challengeOrdered By: Dr. Garcia on 07-10-2022 CO2 [Moles/Vol] 22.0 mmol/L 21.0-32.0 [facility] Urea nitrogen/Creatinine [Mass ratio] 18.6 mg/mg 10-20 [facility] - Hematology and Cell countsOrdered By: Dr. Garcia on 07-10-2022 Erythrocyte distribution width (RBC) [Entitic vol] 45.0 fL 35.1-43.9 [facility] Erythrocyte distribution width (RBC) [Ratio] 13.0 % 11.6-14.6 [facility] Immature granulocytes/100 WBC (Bld) 0.400 % 0.0-0.9 [facility] Comment on above: IG% - Immature Granu locytes (promyelocytes, myelocytes and metamyelocytes) > 1% indicates that a LEFT SHIFT is Present. MCH (RBC) [Entitic mass] 30.9 pg 27.0-32.0 [facility] Nucleated RBC/100 WBC (Bld) [Ratio] 0 % 0-5 [facility] MCHC Auto (RBC) [Mass/Vol]Or dered By: Dr. Garcia on 07-10-2022 MCHC (RBC) [Mass/Vol] 32.8 g/dL 32-36 [facility] No Panel InformationOrdered By: Dr. Garcia on 07-10-2022 Estimated Creatinine Clearance Calc 47.78 ml/min [facility] Estimated GFR (MDRD) Amer 106 mL/min >60 [facility] Comment on above: GFR Calc Estimated GFR (MDRD) Non-Af Amer 88 mL/min >60 [facility] Comment on above: Non- GFR Calc Platelets bldOrdered By: Dr. Garcia on 07-10-2022 Platelets (Bld) [#/Vol] 215 10*3/uL 150-450 [facility] Serum or plasma calcium clifford urement (mass/volume)Ordered By: Dr. Garcia on 07-10-2022 Calcium [Mass/Vol] 8.9 mg/dL 8.5-10.1 [facility] Serum or plasma creatinine m easurement (mass/volume)Ordered By: Dr. Garcia on 07-10-2022 Creatinine [Mass/Vol] 0.70 mg/dL 0.55-1.02 [facility] Comment on above: The validity of the calculated GFR & GFRAA in patients over 70 years has not been determined. Clinical correlation is essential. Serum or plasma urea nitroge n measurement (mass/volume)Ordered By: Dr. Garcia on 07-10-2022 Urea nitrogen [Mass/Vol] 13 mg/dL 7-18 [facility] Thin prep Papanicolaou smear with manual screeningOrdered By: Dr. Garcia on 07-10-2022 Thin prep Papanicolaou smear with manual screening 16 5-15 [facility] Absolute lymphocyte countOrd ered By: Dr. Burk on 07-06-2022 Lymphocytes Auto (Unsp spec) [#/Vol] 1.34 10*3/uL 0.83-4.51 [facility] Basophil percentageOrdered B y: Dr. Burk on 07-06-2022 Basophils/100 WBC (Bld) 0.3 % 0-1 [facility] Bilirubin [Mass/Vol] 1.10 mg/dL 0.20-1.00 [facility] Comment on above: For patients on eltr ombopag therapy, use of Dimension [place] TBIL is not recommended. Chloride [Moles/Vol] 105 mmol/L 98-107 [facility] Eosinophils/100 WBC (Bld) 2.0 % 0-5 [facility] Glucose [Mass/Vol] 117 mg/dL 74-106 [facility] Comment on above: Fasting Glucose resu lt from 100 to 125 mg/dL suggests IMPAIRED HOMEOSTASIS per A.D.A. criteria. Neutrophils (Bld) [#/Vol] 7.5 10*3/uL 2.0-7.7 [facility] Neutrophils/100 WBC (Bld) 75.3 % 47-70 [facility] Potassium [Moles/Vol] 3.7 mmol/L 3.5-5.1 [facility] Protein [Mass/Vol] 7.4 g/dL 6.4-8.2 [facility] Sodium [Moles/Vol] 138 mmol/L 136-145 [facility] WBC (Bld) [#/Vol] 10.0 10*3/uL 4.4-11.0 [facility] Blood erythrocytes count (nu mber/volume)Ordered By: Dr. Burk on 07-06-2022 RBC (Bld) [#/Vol] 4.68 10*6/uL 4.2-5.4 [facility] Blood hemoglobin measurement (mass/volume)Ordered By: Dr. Burk on 07-06-2022 Hemoglobin (Bld) [Mass/Vol] 14.5 g/dL 12.0-15.0 [facility] Blood lymphocytes/100 leukoc ytesOrdered By: Dr. Burk on 07-06-2022 Lymphocytes/100 WBC (Bld) 13.4 % 19-41 [facility] Blood monocytes/100 leukocyt esOrdered By: Dr. Burk on 07-06-2022 Monocytes/100 WBC (Bld) 8.6 % 0-10 [facility] Blood platelet mean volumeOr dered By: Dr. Burk on 07-06-2022 Platelet mean volume (Bld) [Entitic vol] 10.6 fL 6.2-12.0 [facility] Determination of erythrocyte mean corpuscular volume (MCV)Ordered By: Dr. Burk on 07-06-2022 MCV (RBC) [Entitic vol] 94.9 fL 81-99 [facility] Hematocrit Auto (Bld) [Volum e fraction]Ordered By: Dr. Burk on 07-06-2022 Hematocrit (Bld) [Volume fraction] 44.4 % 37-47 [facility] Laboratory - Chemistry and C hemistry - challengeOrdered By: Dr. Burk on 07-06-2022 ALP [Catalytic activity/Vol] 80 U/L 45-117 [facility] ALT [Catalytic activity/Vol] 15 U/L 13-56 [facility] CO2 [Moles/Vol] 24.0 mmol/L 21.0-32.0 [facility] Globulin (S) [Mass/Vol] 4.0 g/dL 2.2-4.2 [facility] Lipase [Catalytic activity/Vol] 215 U/L 73-393 [facility] Urea nitrogen/Creatinine [Mass ratio] 9.7 mg/mg 10-20 [facility] Laboratory - Hematology and Cell countsOrdered By: Dr. Burk on 07-06-2022 Erythrocyte distribution width (RBC) [Entitic vol] 44.7 fL 35.1-43.9 [facility] Erythrocyte distribution width (RBC) [Ratio] 12.7 % 11.6-14.6 [facility] Immature granulocytes/100 WBC (Bld) 0.400 % 0.0-0.9 [facility] Comment on above: IG% - Immature Granu locytes (promyelocytes, myelocytes and metamyelocytes) > 1% indicates that a LEFT SHIFT is Present. MCH (RBC) [Entitic mass] 31.0 pg 27.0-32.0 [facility] Nucleated RBC/100 WBC (Bld) [Ratio] 0 % 0-5 [facility] MCHC Auto (RBC) [Mass/Vol]Or dered By: Dr. Burk on 07-06-2022 MCHC (RBC) [Mass/Vol] 32.7 g/dL 32-36 [facility] No Panel InformationOrdered By: Dr. Burk on 07-06-2022 Estimated Creatinine Clearance Calc 58.26 ml/min [facility] Estimated GFR (MDRD) Amer 88 mL/min >60 [facility] Comment on above: GFR Calc Estimated GFR (MDRD) Non-Af Amer 73 mL/min >60 [facility] Comment on above: Non- GFR Calc Platelets bldOrdered By: Dr. Burk on 07-06-2022 Platelets (Bld) [#/Vol] 251 10*3/uL 150-450 [facility] Serum or plasma albumin clifford urement (mass/volume)Ordered By: Dr. Burk on 07-06-2022 Albumin [Mass/Vol] 3.4 g/dL 3.2-5.0 [facility] Serum or plasma albumin/glob ulin mass ratioOrdered By: Dr. Burk on 07-06-2022 Albumin/Globulin [Mass ratio] 0.8 {ratio} 0.9-2.4 [facility] Serum or plasma calcium clifford urement (mass/volume)Ordered By: Dr. Burk on 07-06-2022 Calcium [Mass/Vol] 9.4 mg/dL 8.5-10.1 [facility] Serum or plasma creatinine m easurement (mass/volume)Ordered By: Dr. Burk on 07-06-2022 Creatinine [Mass/Vol] 0.82 mg/dL 0.55-1.02 [facility] Comment on above: The validity of the calculated GFR & GFRAA in patients over 70 years has not been determined. Clinical correlation is essential. Serum or plasma urea nitroge n measurement (mass/volume)Ordered By: Dr. Burk on 07-06-2022 Urea nitrogen [Mass/Vol] 8 mg/dL 7-18 [facility] Thin prep Papanicolaou smear with manual screeningOrdered By: Dr. Burk on 07-06-2022 Thin prep Papanicolaou smear with manual screening 7 U/L 15-37 [facility] Thin prep Papanicolaou smear with manual screening 9 5-15 [facility] Absolute lymphocyte countOrd ered By: Dr. Macario on 04-27-2022 Lymphocytes Auto (Unsp spec) [#/Vol] 0.95 10*3/uL 0.83-4.51 [facility] Basophil percentageOrdered B y: Dr. Macario on 04-27-2022 Basophils/100 WBC (Bld) 0.9 % 0-1 [facility] Bilirubin [Mass/Vol] 0.80 mg/dL 0.20-1.00 [facility] Comment on above: For patients on eltr ombopag therapy, use of Dimension [place] TBIL is not recommended. Chloride [Moles/Vol] 107 mmol/L 98-107 [facility] Cholesterol [Mass/Vol] 249 mg/dL <200 [facility] Comment on above: <200 mg/dL Desirable 200-240 mg/dL Borderline >240 mg/dL High Risk Eosinophils/100 WBC (Bld) 4.4 % 0-5 [facility] Glucose [Mass/Vol] 75 mg/dL 74-106 [facility] Neutrophils (Bld) [#/Vol] 2.8 10*3/uL 2.0-7.7 [facility] Neutrophils/100 WBC (Bld) 64.0 % 47-70 [facility] Potassium [Moles/Vol] 4.0 mmol/L 3.5-5.1 [facility] Protein [Mass/Vol] 7.7 g/dL 6.4-8.2 [facility] Sodium [Moles/Vol] 144 mmol/L 136-145 [facility] Triglyceride [Mass/Vol] 245 mg/dL <199 [facility] Comment on above: The drugs N-Acetylcy steine and Metamizole may falsely depress this assay.Serum Triglycerides Reference Interval Normal <150 mg/dL Borderline high 150 - 199 mg/dL High 200 - 499 mg/dL Very High > or = 500 mg/dL WBC (Bld) [#/Vol] 4.3 10*3/uL 4.4-11.0 [facility] Blood erythrocytes count (nu mber/volume)Ordered By: Dr. Macario on 04-27-2022 RBC (Bld) [#/Vol] 4.29 10*6/uL 4.2-5.4 [facility] Blood hemoglobin measurement (mass/volume)Ordered By: Dr. Macario on 04-27-2022 Hemoglobin (Bld) [Mass/Vol] 14.6 g/dL 12.0-15.0 [facility] Blood lymphocytes/100 leukoc ytesOrdered By: Dr. Macario on 04-27-2022 Lymphocytes/100 WBC (Bld) 22.1 % 19-41 [facility] Blood monocytes/100 leukocyt esOrdered By: Dr. Macario on 04-27-2022 Monocytes/100 WBC (Bld) 8.4 % 0-10 [facility] Blood platelet mean volumeOr dered By: Dr. Macario on 04-27-2022 Platelet mean volume (Bld) [Entitic vol] 10.2 fL 6.2-12.0 [facility] Determination of erythrocyte mean corpuscular volume (MCV)Ordered By: Dr. Macario on 04-27-2022 MCV (RBC) [Entitic vol] 104.4 fL 81-99 [facility] Hematocrit Auto (Bld) [Volum e fraction]Ordered By: Dr. Macario on 04-27-2022 Hematocrit (Bld) [Volume fraction] 44.8 % 37-47 [facility] Laboratory - Chemistry and C hemistry - challengeOrdered By: Dr. Macario on 04-27-2022 ALP [Catalytic activity/Vol] 84 U/L 45-117 [facility] ALT [Catalytic activity/Vol] 66 U/L 13-56 [facility] CO2 [Moles/Vol] 27.0 mmol/L 21.0-32.0 [facility] Globulin (S) [Mass/Vol] 3.9 g/dL 2.2-4.2 [facility] Urea nitrogen/Creatinine [Mass ratio] 15.0 mg/mg 10-20 [facility] - Hematology and Cell countsOrdered By: Dr. Macario on 04-27-2022 Erythrocyte distribution width (RBC) [Entitic vol] 54.0 fL 35.1-43.9 [facility] Erythrocyte distribution width (RBC) [Ratio] 13.9 % 11.6-14.6 [facility] Immature granulocytes/100 WBC (Bld) 0.200 % 0.0-0.9 [facility] Comment on above: IG% - Immature Granu locytes (promyelocytes, myelocytes and metamyelocytes) > 1% indicates that a LEFT SHIFT is Present. MCH (RBC) [Entitic mass] 34.0 pg 27.0-32.0 [facility] Nucleated RBC/100 WBC (Bld) [Ratio] 0 % 0-5 [facility] MCHC Auto (RBC) [Mass/Vol]Or dered By: Dr. Macario on 04-27-2022 MCHC (RBC) [Mass/Vol] 32.6 g/dL 32-36 [facility] No Panel InformationOrdered By: Dr. Macario on 04-27-2022 Estimated GFR (MDRD) Amer 128 mL/min >60 [facility] Comment on above: GFR Calc Estimated GFR (MDRD) Non-Af Amer 105 mL/min >60 [facility] Comment on above: Non- GFR Calc Thyroid Stimulating Hormone (TSH) 1.51 uIU/mL 0.358-3.74 [facility] Platelets bldOrdered By: Dr. Macario on 04-27-2022 Platelets (Bld) [#/Vol] 208 10*3/uL 150-450 [facility] Serum or plasma albumin clifford urement (mass/volume)Ordered By: Dr. Macario on 04-27-2022 Albumin [Mass/Vol] 3.8 g/dL 3.2-5.0 [facility] Serum or plasma albumin/glob ulin mass ratioOrdered By: Dr. Macario on 04-27-2022 Albumin/Globulin [Mass ratio] 1.0 {ratio} 0.9-2.4 [facility] Serum or plasma calcium clifford urement (mass/volume)Ordered By: Dr. Macario on 04-27-2022 Calcium [Mass/Vol] 9.2 mg/dL 8.5-10.1 [facility] Serum or plasma cholesterol in HDL measurement (mass/volume)Ordered By: Dr. Macario on 04-27-2022 Cholesterol in HDL [Mass/Vol] 61 mg/dL >40 [facility] Comment on above: The drugs N-Acetylcy steine and Metamizole may falsely depress this assay. Reference Range HDL <40 mg/dL Low HDL Cholesterol HDL >or= 60 mg/dL High HDL Cholesterol Serum or plasma cholesterol in VLDL measurement (mass/volume)Ordered By: Dr. Macario on 04-27-2022 Cholesterol in VLDL [Mass/Vol] 49 mg/dL 5-40 [facility] Serum or plasma creatinine m easurement (mass/volume)Ordered By: Dr. Macario on 04-27-2022 Creatinine [Mass/Vol] 0.60 mg/dL 0.55-1.02 [facility] Comment on above: The validity of the calculated GFR & GFRAA in patients over 70 years has not been determined. Clinical correlation is essential. Serum or plasma low density lipoprotein (LDL) cholesterol measurement (mass/volume)Ordered By: Dr. Macario on 04-27-2022 Cholesterol in LDL [Mass/Vol] 139 mg/dL 0-130 [facility] Serum or plasma urea nitroge n measurement (mass/volume)Ordered By: Dr. Macario on 04-27-2022 Urea nitrogen [Mass/Vol] 9 mg/dL 7-18 [facility] Thin prep Papanicolaou smear with manual screeningOrdered By: Dr. Macario on 04-27-2022 Thin prep Papanicolaou smear with manual screening 71 U/L [facility] Thin prep Papanicolaou smear with manual screening 10 10-26 [facility] Vital Signs Date Time Vital Sign Value Performing Clinician Fran bae 02-26-2025 10:44-0400 Body height 165.[address] Hermila Macario MD Work Phone: [facility] 02-26-2025 10:44-0400 Body mass index (BMI) [Ratio] 28.6 kg/m2 Dr. Hermila Macario MD Work Phone: [facility] 02-26-2025 10:44-0400 Body temperature 98.4 [degF] Dr. Hermila Macario MD Work Phone: [facility] 02-26-2025 10:44-0400 Body weight 78.[address] Hermila aMcario MD Work Phone: [facility] 02-26-2025 10:44-0400 Diastolic blood pressure 82 mm[Hg] Dr. Hermila Macario MD Work Phone: [facility] 02-26-2025 10:44-0400 Heart rate 88 /min Dr. Hermila Macario MD Work Phone: [facility] 02-26-2025 10:44-0400 Respiratory rate 16 /min Dr. Hermila Macario MD Work Phone: [facility] 02-26-2025 10:44-0400 SaO2% (BldA) [Mass fraction] 98 % Dr. Hermila Macario MD Work Phone: [facility] 02-26-2025 10:44-0400 Systolic blood pressure 124 mm[Hg] Dr. Hermila Macario MD Work Phone: [facility] 02-20-2025 16:37-0400 Body temperature 97.8 [degF] Dr. Hermila Macario MD Work Phone: [facility] 02-20-2025 16:37-0400 Diastolic blood pressure 74 mm[Hg] Dr. Hermila Macario MD Work Phone: [facility] 02-20-2025 16:37-0400 Heart rate 58 /min Dr. Hermila Macario MD Work Phone: [facility] 02-20-2025 16:37-0400 Respiratory rate 14 /min Dr. Hermila Macario MD Work Phone: [facility] 02-20-2025 16:37-0400 SaO2% (BldA) [Mass fraction] 94 % Dr. Hermila Macario MD Work Phone: [facility] 02-20-2025 16:37-0400 Systolic blood pressure 158 mm[Hg] Dr. Hermila Macario MD Work Phone: [facility] 02-20-2025 12:47-0400 Body height 165.[address] Hermila Macario MD Work Phone: [facility] 02-20-2025 12:47-0400 Body mass index (BMI) [Ratio] 28.5 kg/m2 Dr. Hermila Macario MD Work Phone: [facility] 02-20-2025 12:47-0400 Body weight 77.[address] Hermila Macario MD Work Phone: [facility] 11-13-2024 13:19-0400 Body height 165.[address] Hermila Macario MD Work Phone: [facility] 11-13-2024 13:13-0400 Body mass index (BMI) [Ratio] 29.8 kg/m2 Dr. Hermila Macario MD Work Phone: [facility] 11-13-2024 13:13-0400 Body weight 81.[address] Hermila Macario MD Work Phone: [facility] 11-13-2024 13:13-0400 Diastolic blood pressure 68 mm[Hg] Dr. Hermila Macario MD Work Phone: [facility] 11-13-2024 13:13-0400 Systolic blood pressure 108 mm[Hg] Dr. Hermila Macario MD Work Phone: [facility] 05-18-2023 15:30-0500 Body height 165.[address] Hermila Macario Work Phone: [facility] 04-28-2023 13:56-0500 Body mass index (BMI) [Ratio] 28.3 kg/m2 Dr. Hermila Macario Work Phone: [facility] 04-28-2023 13:56-0500 Body temperature 97 [degF] Dr. Hermila Macario Work Phone: [facility] 04-28-2023 13:56-0500 Body weight 77.[address] Hermila Macario Work Phone: [facility] 04-28-2023 13:56-0500 Diastolic blood pressure 78 mm[Hg] Dr. Hermila Macario Work Phone: [facility] 04-28-2023 13:56-0500 Heart rate 70 /min Dr. Hermila Macario Work Phone: [facility] 04-28-2023 13:56-0500 Respiratory rate 16 /min Dr. Hermila Macario Work Phone: [facility] 04-28-2023 13:56-0500 SaO2% (BldA) [Mass fraction] 98 % Dr. Hermila Macario Work Phone: [facility] 04-28-2023 13:56-0500 Systolic blood pressure 118 mm[Hg] Dr. Hermila Macario Work Phone: [facility] 04-19-2023 15:10-0500 Body mass index (BMI) [Ratio] 28.3 kg/m2 Dr. Hermila Macario Work Phone: [facility] 04-19-2023 15:10-0500 Body weight 77.[address] Hermila Macario Work Phone: [facility] 04-19-2023 15:10-0500 Diastolic blood pressure 72 mm[Hg] Dr. Hermila Macario Work Phone: [facility] 04-19-2023 15:10-0500 Systolic blood pressure 130 mm[Hg] Dr. Hermila Macario Work Phone: [facility] 03-29-2023 13:07-0400 Body mass index (BMI) [Ratio] 28.4 kg/m2 Dr. Hermila Macario Work Phone: [facility] 03-29-2023 13:07-0400 Body temperature 98.1 [degF] Dr. Hermila Macario Work Phone: [facility] 03-29-2023 13:07-0400 Body weight 77.[address] Hermila Macario Work Phone: [facility] 03-29-2023 13:07-0400 Diastolic blood pressure 64 mm[Hg] Dr. Hermila Macario Work Phone: [facility] 03-29-2023 13:07-0400 Heart rate 69 /min Dr. Hermila Macario Work Phone: [facility] 03-29-2023 13:07-0400 Respiratory rate 16 /min Dr. Hermila Macario Work Phone: [facility] 03-29-2023 13:07-0400 SaO2% (BldA) [Mass fraction] 98 % Dr. Hermila Macario Work Phone: [facility] 03-29-2023 13:07-0400 Systolic blood pressure 102 mm[Hg] Dr. Hermila Macario Work Phone: [facility] 02-22-2023 14:56-0400 Body mass index (BMI) [Ratio] 27.8 kg/m2 Dr. Hermila Macario Work Phone: [facility] 02-22-2023 14:56-0400 Body temperature 97.8 [degF] Dr. Hermila Macario Work Phone: [facility] 02-22-2023 14:56-0400 Body weight 75.[address] Hermila Macario Work Phone: [facility] 02-22-2023 14:56-0400 Diastolic blood pressure 82 mm[Hg] Dr. Hermila Macario Work Phone: [facility] 02-22-2023 14:56-0400 Heart rate 53 /min Dr. Hermila Macario Work Phone: [facility] 02-22-2023 14:56-0400 Respiratory rate 16 /min Dr. Hermila Macario Work Phone: [facility] 02-22-2023 14:56-0400 SaO2% (BldA) [Mass fraction] 99 % Dr. Hermila Macario Work Phone: [facility] 02-22-2023 14:56-0400 Systolic blood pressure 122 mm[Hg] Dr. Hermila Macario Work Phone: [facility] 01-11-2023 07:25-0400 Body temperature 98 [degF] Dr. Hermila Macario Work Phone: [facility] 01-11-2023 07:25-0400 Diastolic blood pressure 69 mm[Hg] Dr. Hermila Macario Work Phone: [facility] 01-11-2023 07:25-0400 Heart rate 58 /min Dr. Hermila Macario Work Phone: [facility] 01-11-2023 07:25-0400 Respiratory rate 16 /min Dr. Hermila Macario Work Phone: [facility] 01-11-2023 07:25-0400 SaO2% (BldA) [Mass fraction] 96 % Dr. Hermila Macario Work Phone: [facility] 01-11-2023 07:25-0400 Systolic blood pressure 109 mm[Hg] Dr. Hermila Macario Work Phone: [facility] 01-11-2023 05:59-0400 Body height 165.[address] Hermila Macario Work Phone: [facility] 01-11-2023 05:59-0400 Body mass index (BMI) [Ratio] 26.4 kg/m2 Dr. Hermila Macario Work Phone: [facility] 01-11-2023 05:59-0400 Body weight 72.[address] Hermila Macario Work Phone: [facility] 10-23-2022 12:42-0400 Body weight 72.[address] Hermila Macario Work Phone: [facility] 09-23-2022 14:04-0400 Body height 165.[address] Hermila Macario Work Phone: [facility] 09-23-2022 14:04-0400 Body mass index (BMI) [Ratio] 27.4 kg/m2 Dr. Hermila Macario Work Phone: [facility] 09-23-2022 14:04-0400 Body temperature 97.9 [degF] Dr. Hermila Macario Work Phone: [facility] 09-23-2022 14:04-0400 Body weight 74.[address] Hermila Macario Work Phone: [facility] 09-23-2022 14:04-0400 Diastolic blood pressure 72 mm[Hg] Dr. Hermila Macario Work Phone: [facility] 09-23-2022 14:04-0400 Heart rate 65 /min Dr. Hermila Macario Work Phone: [facility] 09-23-2022 14:04-0400 Respiratory rate 12 /min Dr. Hermila Macario Work Phone: [facility] 09-23-2022 14:04-0400 SaO2% (BldA) [Mass fraction] 98 % Dr. Hermila Macario Work Phone: [facility] 09-23-2022 14:04-0400 Systolic blood pressure 108 mm[Hg] Dr. Hermila Macario Work Phone: [facility] 07-10-2022 12:29-0500 Diastolic blood pressure 83 mm[Hg] No Primary Care Physician [facility] 07-10-2022 12:29-0500 Heart rate 64 /min No Primary Care Physician [facility] 07-10-2022 12:29-0500 Respiratory rate 15 /min No Primary Care Physician [facility] 07-10-2022 12:29-0500 SaO2% (BldA) [Mass fraction] 95 % No Primary Care Physician [facility] 07-10-2022 12:29-0500 Systolic blood pressure 127 mm[Hg] No Primary Care Physician [facility] 07-10-2022 09:57-0500 Body height 165.1 cm No Primary Care Physician [facility] 07-10-2022 09:57-0500 Body mass index (BMI) [Ratio] 31.6 kg/m2 No Primary Care Physician [facility] 07-10-2022 09:57-0500 Body temperature 97.6 [degF] No Primary Care Physician [facility] 07-10-2022 09:57-0500 Body weight 86.18 kg No Primary Care Physician [facility] 07-06-2022 06:38-0500 Diastolic blood pressure 89 mm[Hg] No Primary Care Physician [facility] 07-06-2022 06:38-0500 Heart rate 84 /min No Primary Care Physician [facility] 07-06-2022 06:38-0500 Respiratory rate 15 /min No Primary Care Physician [facility] 07-06-2022 06:38-0500 SaO2% (BldA) [Mass fraction] 95 % No Primary Care Physician [facility] 07-06-2022 06:38-0500 Systolic blood pressure 136 mm[Hg] No Primary Care Physician [facility] 07-06-2022 04:39-0500 Body mass index (BMI) [Ratio] 29.7 kg/m2 No Primary Care Physician [facility] 07-06-2022 04:39-0500 Body temperature 96.9 [degF] No Primary Care Physician [facility] 07-06-2022 04:39-0500 Body weight 80.9 kg No Primary Care Physician [facility] 05-25-2022 16:30-0500 Body temperature 98.2 [degF] No Primary Care Physician [facility] 05-25-2022 16:30-0500 Body weight 85.84 kg No Primary Care Physician [facility] 05-25-2022 16:30-0500 Diastolic blood pressure 70 mm[Hg] No Primary Care Physician [facility] 05-25-2022 16:30-0500 Heart rate 65 /min No Primary Care Physician [facility] 05-25-2022 16:30-0500 Respiratory rate 18 /min No Primary Care Physician [facility] 05-25-2022 16:30-0500 SaO2% (BldA) [Mass fraction] 96 % No Primary Care Physician [facility] 05-25-2022 16:30-0500 Systolic blood pressure 124 mm[Hg] No Primary Care Physician [facility] 04-27-2022 14:13-0500 Diastolic blood pressure 110 mm[Hg] No Primary Care Physician [facility] 04-27-2022 14:13-0500 Systolic blood pressure 160 mm[Hg] No Primary Care Physician [facility] 04-27-2022 13:28-0500 Body temperature 98 [degF] No Primary Care Physician [facility] 04-27-2022 13:28-0500 Body weight 87.54 kg No Primary Care Physician [facility] 04-27-2022 13:28-0500 Heart rate 72 /min No Primary Care Physician [facility] 04-27-2022 13:28-0500 Respiratory rate 18 /min No Primary Care Physician [facility] 04-27-2022 13:28-0500 SaO2% (BldA) [Mass fraction] 97 % No Primary Care Physician [facility] 04-23-2022 15:35-0500 Diastolic blood pressure 84 mm[Hg] No Primary Care Physician [facility] 04-23-2022 15:35-0500 Systolic blood pressure 138 mm[Hg] No Primary Care Physician [facility] 04-23-2022 15:23-0500 Body height 165.1 cm No Primary Care Physician [facility] Work Phone: 04-23-2022 15:23-0500 Body mass index (BMI) [Ratio] 31.6 kg/m2 No Primary Care Physician [facility] 04-23-2022 15:23-0500 Body weight 86.4 kg No Primary Care Physician [facility] 04-15-2022 15:02-0400 Body mass index (BMI) [Ratio] 31.8 kg/m2 No Primary Care Physician [facility] 04-15-2022 15:02-0400 Body weight 86.69 kg No Primary Care Physician [facility] 04-15-2022 15:02-0400 Diastolic blood pressure 110 mm[Hg] No Primary Care Physician [facility] 04-15-2022 15:02-0400 Systolic blood pressure 172 mm[Hg] No Primary Care Physician [facility] Encounters Encounter Date Encounter Type Care Provider Facility Start: 04-19-2025 End: 04-19-2025 ambulatory Hermila [place] Facility:[facility] Start: 04-05-2025 End: 04-05-2025 ambulatory Hermila [place] Facility:[facility] Start: 02-26-2025 End: 02-26-[address] Hermila Macario MD -[facility] Work Phone: Start: 02-26-2025 End: 02-26-[address] Hermila Macario MD Work Phone: -[facility] Start: 02-20-2025 End: 02-20-2025 Emergency department patient visit Dr. Hermila Macario MD Work Phone: -Emergency Department Work Phone: Start: 11-13-2024 End: 11-13-2024 Patient encounter procedure Demi Chung [employer] -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 Hermila Macario MD Work Phone: [facility] Work Phone: Start: 07-04-2024 End: 07-04-2024 ambulatory Rdedy Montoya Facility:[facility] Start: 06-29-2024 End: 06-29-2024 ambulatory Hermila Macario Facility:[facility] Start: 05-22-2024 End: 05-22-2024 ambulatory Demi Chung NP Facility:[facility] Start: 05-18-2023 End: 05-18-[address] Hermila Macario Work Phone: [facility] Work Phone: Start: 05-18-2023 End: 05-18-[address] Hermila Macario Work Phone: [facility]-Outpatient Breast Imaging Work Phone: Start: 04-28-2023 End: 04-28-[address] Hermila Macario Work Phone: [facility] Internal Medicine Work Phone: Start: 04-19-2023 End: 04-19-[address] Hermila Macario Work Phone: [facility] Work Phone: Start: 03-29-2023 End: 03-29-[address] Hermila Macario Work Phone: [facility] Internal Medicine Work Phone: Start: 03-17-2023 End: 03-17-[address] Hermila Macario Work Phone: [facility]-Sleep Lab Work Phone: Start: 02-22-2023 End: 02-22-[address] Hermila Macario Work Phone: [facility] Internal Medicine Work Phone: Start: 01-11-2023 Non-patient / Non-visit Dr. Hermila Macario Work Phone: [facility] Start: 01-11-2023 End: 01-11-2023 Admission to same day surgery center Dr. Hermila Macario Work Phone: [facility]-Endoscopy Work Phone: Start: 01-11-2023 End: 01-11-[address] Hermila Macario Work Phone: [facility] Work Phone: Start: 10-23-2022 End: 10-23-[address] Hermila Macario Work Phone: [facility] Gastroenterology Start: 10-20-2022 End: 10-20-[address] Hermila Macario Work Phone: [facility] Work Phone: Start: 10-20-2022 End: 10-20-[address] Hermila Macario Work Phone: [facility]-Laboratory, Specimen Start: 09-28-2022 End: 09-28-[address] Hermila Macario Work Phone: [facility] Work Phone: Start: 09-28-2022 End: 09-28-[address] Hermila Macario Work Phone: [facility]-Laboratory, Specimen Start: 09-23-2022 End: 09-23-[address] Hermila Macario Work Phone: [facility] Internal Medicine Start: 07-10-2022 End: 07-10-2022 Emergency department patient visit No Primary Care Physician [facility]-Emergency Department Start: 07-06-2022 End: 07-06-2022 Emergency department patient visit No Primary Care Physician [facility]Emergency Department Start: 05-25-2022 End: 05-25-2022 Patient encounter procedure No Primary Care Physician [facility] Internal Medicine Start: 04-27-2022 End: 04-27-2022 ambulatory No Primary Care Physician [facility] Work Phone: Start: 04-27-2022 End: 04-27-2022 Patient encounter procedure No Primary Care Physician [facility] Internal Medicine Start: 04-23-2022 End: 04-23-2022 Patient encounter procedure No Primary Care Physician [facility] Women's Care Start: 04-22-2022 End: 04-22-2022 Patient encounter procedure No Primary Care Physician [facility]-Outpatient Breast Imaging Start: 04-15-2022 End: 04-15-2022 Patient encounter procedure No Primary Care Physician [facility] Procedures Date Procedure Procedure Detail Performing Clinician Start: 02-20-2025 CT of head without contrast Dr. Hermila Macario MD Work Phone: Start: 05-18-2023 Dual energy X-ray absorptiometry Dr. Hermila Macario Work Phone: Start: 05-18-2023 Screening mammography Sindy Macario Work Phone: Start: 01-11-[address] Hermila Macario Work Phone: Start: 10-20-[address] Hermila Macario Work Phone: Start: 09-27-[address] Hermila Macario Work Phone: Start: 09-27-[address] Hermila Macario Work Phone: Start: 07-06-2022 CT of abdomen and pe lvis without contrast No Primary Care Physician Start: 04-22-2022 Screening mammography N o Primary Care Physician Clostridium difficil e detection Dr. Hermila Macario Work Phone: Clostridium difficil e detection Dr. Hermila Macario Work Phone: Clostridium difficil e detection Dr. Hermila Macario Work Phone: Enteric Bacteriology Dr. Zechariah Macario Work Phone: Plan of Treatment Date Care Activity Detail Author Start: 01-11-2023 Patient discharge [facility] Start: 09-28-2022 Protein measurement [facility] Start: 07-10-2022 Enteric precautions [facility] CBC W Auto Different ial panel - Blood [facility] Comprehensive metabo lic 1999 panel - Serum or Plasma [facility] DXA Bone [Mass/Area] Bone density [facility] Lipid 1996 panel - S jo ann or Plasma [facility] MG Breast - bilateral Screening [facility] Patient Education [facility] Work Phone: Patient referral [facility] Work Phone: Protein measurement [facility] Vitamin D, 25-hydrox y measurement [facility] Immunizations Immunization Date Immunization Notes Care Provider Fa cility 02-28-2024 Pfizer Covid-19 (Comirnaty) Dr. Hermila Macario MD Work Phone: [facility] 02-28-2024 Seasonal trivalent influenza vaccine, adjuvanted, preservative free Dr. Hermila Macario MD Work Phone: [facility] 04-06-2023 Pfizer Covid-19 (Comirnaty) Dr. Hermila Macario Work Phone: [facility] 02-10-2023 influenza, injectabl e, quadrivalent, preservative free Dr. Hermila Macario Work Phone: [facility] 06-19-2022 Covid (Pfizer) Dr. Hermila albert Work Phone: [facility] 04-01-2022 Influenza, high dose seasonal Dr. Hermila Macario MD Work Phone: [facility] 04-01-2022 influenza, high dose seasonal, preservative-free No Primary Care Physician [facility] 04-01-2022 influenza, injectabl e, quadrivalent, preservative free Dr. Hermila Macario Work Phone: [facility] 03-10-2022 Covid Pfizer Bivalen t Booster No Primary Care Physician [facility] 04-26-2021 Covid (Pfizer) No Primary Ca re Physician [facility] 03-06-2021 Influenza, high dose seasonal Dr. Hermila Macario MD Work Phone: [facility] 03-06-2021 influenza, high dose seasonal, preservative-free No Primary Care Physician [facility] 03-06-2021 influenza, injectabl e, quadrivalent, preservative free Dr. Hermila Macario Work Phone: [facility] 09-10-2020 Covid (Pfizer) No Primary Ca re Physician [facility] 08-20-2020 Covid (Pfizer) No Primary Ca re Physician [facility] 02-22-2020 influenza, injectabl e, quadrivalent, preservative free Dr. Hermila Macario Work Phone: [facility] 02-22-2020 influenza, seasonal, injectable No Primary Care Physician [facility] 03-18-2019 influenza, injectabl e, quadrivalent, preservative free Dr. Hermila Macario Work Phone: [facility] 03-18-2019 influenza, seasonal, injectable No Primary Care Physician [facility] 03-18-2019 Seasonal trivalent influenza vaccine, adjuvanted, preservative free Dr. Hermila Macario Work Phone: [facility] 04-15-2018 influenza, injectabl e, quadrivalent, preservative free Dr. Hermila Macario Work Phone: [facility] 04-15-2018 influenza, seasonal, injectable No Primary Care Physician [facility] 05-18-2014 zoster vaccine, live No Prim [facility] Physician [facility] Payers Date Payer Category Payer Medicare [id number] 2024 Self-pay [id number] 2024 Unknown [id number] Private Health Insurance [facility] [id number] Unknown [facility] [id number] Unknown [id number] Unknown [id number] Unknown [id number] Unknown [id number] Unknown [id number] Unknown [id number] Unknown [id number] Unknown [id number] Social History Date Type Detail Facility Start: 04-27-2022 End: 04-27-2023 Tobacco smoking status NHIS Unknown if ever smoked [facility] Start: 1950 Sex Assigned At Female [facility] Start: 06-29-2024 End: 02-20-2025 Tobacco smoking status NHIS Ex-smoker (finding) [facility] NEGATED: Highlighted row [facility] Goals Date Patient Goal Desired Activity /State Mental Status Date Assessment Result Facility 02-20-2025 Cognitive function Level Of Cons ciousness Awake;Alert;Appropriate;Follow s Commands [facility] Work Phone: 01-11-2023 Cognitive function Level Of Consciousness Sedated [facility] Work Phone: 01-11-2023 Cognitive function Voice/Name [facility] Work Phone: Clinical Notes 07-10-2022 to 02-20-2025 Note Date & Type Note Facility 02-20-2025 Radiology Diagnostic study note [facility] Imaging Services [address] [place], [place] [address] Brain/Head without Contrast MR#: [id number] Acct: [id number] Name: REJI GARRETT Rep #: [id number] : 1950 F 74 From: Jorge Dhaliwal MD PCP: Dr. Hermila Macario MD Status: REG ER Study:Brain/Head without Contrast Date of Exa m: 02/20/25 Exam# [id number] Ordering Dr: Shelby No DO PROCEDURE: BRAIN/HEAD WITHOUT CONTRAST 02/20/2025 REASON FOR EXAM: PAIN 1 day history of headaches. Hypertension. TECHNIQUE: Procedure Code: CTBR Modality: CT Procedure: BRAIN/HEAD WITHOUT CONTRAST Coronal and Sagittal reconstruction series were provided. One or more dose reduction techniques were used (e.g., Automated exposure control, adjustment of the mA and/or kV according to patient size, use of iterative reconstruction technique. RADIATION DOSE SUMMARY: CTDlvol: 44.99 mGy DLP: 796.11 mGycm COMPARISON: None FINDINGS: Brain: Tiny hypodensities in the basal ganglia bilaterally suggestive of old lacunar infarcts. CSF Spaces: Mild generalized cerebral atrophy Sinuses/Mastoids: There is dense opacification of the sphenoid sinus in keeping with a chronic sphenoid sinusitis. Partial opacification of the left ethmoid sinus. Mucosal thickening along the inferior aspect of the left maxillary sinus. 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 Dense opacification of the sphenoid sinus as well as partial opacification of the left ethmoid sinus. Mucosal thickening along the inferior aspect of the left maxillary sinus. Reading Location: [facility] CC: Dr. Hermila Macario MD; Dr. 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 [facility] 11-13-2024 Evaluation note Diagnosis Onset Date Resolution Atrophic vaginitis acute November 132024 1:10pm Encounter for routine gynecological examination noneactive November 13, 2024 1:10pm [facility] Work Phone: 1(422) 664-738706-02-2025 Evaluation note* Diagnosis Onset Date Resolution Status Admit Date Atrophic vaginitis acute November 132024 1:10pm Encounter for routine gynecological examination noneactive November 132024 1:10pm Eczema acute February 10:24am Mixed hyperlipidemia acute Sept ember 2024 10:24am Sleep difficulties noneactive Septem roel 2024 10:24am Osteopenia noneactive February 10:24am Situational anxiety noneactive Septe mber 2024 10:24am Essential hypertension noneactive Se ptember 2024 10:24am [facility] Work Phone: 1(362) 370-798706-02-2025 Progress [facility] [address] [place] [address], [address] [place] [address] OFFICE VISIT Date of Service: 11/13/24 MR#: [id number] Acct: [id number] Name: REJI GARRETT Rep #: [id number] : 1950 Provider: GABRIELLA Chung Age/Sex: 74/F Location: [facility] Status: Signed Intake Vital Signs 10/27/23 13:59 06/29/24 14:25 11/13/24 13:13 11/13/24 13:19 Height 5 ft 5 in 5 ft 5 in 5 ft 5 in 5 ft 5 in Weight: 183 lb 179 lb 8 oz BMI 30.4 29.8 BP 136/82 H 108/68 Blood Pressure Location Lt brachial Position Sitting Respiration 12 Pulse 63 Pulse Source Monitor Temp 97.7 F L Pulse Oximetry (%) 97 Oxygen Delivery Method room air 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 Complaint: Annual 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 Required: No Is patient in pain?: No Allergies No Known Allergies Allergy (Verified 11/13/24 13:24) Medications ?Medication ?Instructions ?Recorded ?Confirmed ?Type calcium carbonate (Calcium 600) 600 mg PO BID 03/23/18 11/13/24 History Lactobacillus acidophilus 250 500 mmu cells PO DAILY 0 01/05/23 11/13/24 History million cell capsule (Probiotic Acidophilus) dupilumab 200 mg/1.14 mL 300 mg subcut Q2W 04/28/23 0 11/13/24 History subcutaneous pen injector (Mobile Game DayixGalenea) estradiol 0.01% (0.1 mg/gram) See Rx Instructions vagi nal 10/18/23 11/13/24 Rx vaginal cream (Estrace) .COMPLEX #42.5 grams hydroxyzine HCl 10 mg tablet 10 mg PO TID PRN anxiey # 20 tabs 11/24/23 11/13/24 Rx alendronate 70 mg tablet (Fosamax) 70 mg PO QWEEK #12 tabs 07/16/24 11/13/24 Rx atorvastatin 10 mg tablet (Lipitor) 10 mg PO QHS #90 t abs 10/09/24 11/13/24 Rx losartan 25 mg tablet 25 mg PO DAILY #90 tabs 04/2 02/0511/13/24 Rx trazodone 50 mg tablet 25 mg (1/2 x 50 mg) PO QHS # 45 tabs 10/09/24 11/13/24 Rx Is last menstrual period known: No Post menopausal: Yes Patient : No : No PFSH Medical History History of Clostridium difficile infection Wears glasses Wears dentures Anxiety Arthritis High cholesterol History of diverticulitis Former smoker Hypertension Abnormal mammogram Surgical History Hx of colonoscopy Hx of tooth extraction H/O breast biopsy Family History Mother Breast cancer Father Cancer liver Brother Skin cancer Social History adopted: No household members: none housing: house number of children: 1 current occupational status: retired current occupation: worked for a [employer] current occupational exposures/hazards: No pets and animals: Yes history of recent travel: Yes out of country: Yes Smoking Status: Former smoker quit date: 06/14/01 pack-years: 32 Electronic Cigarette Use: not used second hand exposure: No alcohol intake: current alcohol intake frequency: holidays/special occasions only substance use type: does not use caffeine: No what type of physical activity do you participate in: none seatbelt use: always do you feel safe at home: Yes additional social history: Single History 1 Elective abortions Hx Para 1 Spontaneous abortions Hx # Term Pregnancies Ectopic pregnancies Hx # Pregnancies Multiple births # of living children 1 Past Pregnancies Del. Date Name GA/Weeks Outcome Route Bth Weight Infant Gen Labor Lgth Anesthesia Del Locatn Provider FOB Unknown HPI Encounter for routine gynecological examination Details: REJI GARRETT is a 74 year old who presents for annual exam. Denies concerns. Usingestradiol cream twice a week, not needing refill yet. Last PAP: NA History of abnormal PAP: no Last mammogram: 05/2024 History of abnormal mammogram: no Colon cancer screenin Other preventative health care screenings: Ruth Female Reproductive History Questions: metorrhagia: No and sexually active: No ROS Const Constitutional: Denies fatigue, weight gain or weight loss Cardio Card: Denies chest pain Resp Resp: Denies cough or dyspnea on exertion GI GI: Denies abdominal pain, bloating, change in stool character, constipation or vomiting : Reports as per HPI; Denies difficulty voiding, pelvic pain, urinary frequency, urinary incontinence,urinary urgency, vaginal discharge or vaginal pruritus Exam Const General: cooperative, healthy appearing, no acute distress and well developed Orientation: alert, oriented to person and oriented to place HENUT Head: normal to inspection Neck Neck: normal visual inspection Thyroid: thyroid normal Lymphatic: no lymphadenopathy noted Chest Breast inspection: normal inspection of the breasts and normal inspection of theaxillae Breast palpation: normal palpation of the breasts, normal palpation of the axillae and no axillary lymphadenopathy Resp Effort & Inspection: normal respiratory effort GI Palpation: soft, no masses and nontender Rectal Exam: deferred External Female Exam: normal external appearance and normal appearance of the urethra Urethra: normal appearance of the urethra and normal palpation Speculum Exam - Vagina: normal vaginal discharge and vagina atrophic (mild) Speculum Exam - Cervix: normal appearance of the cervix Bimanual Exam- Vagina & Uterus: normal bimanual exam, uterine size normal, uterine shape normaland non-tender Bimanual Exam- Adnexa, other: normal adnexae, no masses, normal and non-tender Pelvic Support: normal Neuro General: patient alert and patient oriented x3 Psych Affect: normal affect Coding Level of Care Code Pelvic/Breast Diagnoses Encounter for gynecological examination without abnormal finding Z01.419 Gynecological examination findings: abnormal findings ABSENT Atrophic vaginitis N95.2 Assessment and Plan Assessment and Plan (1) Encounter for routine gynecological examination: Qualifiers: Gynecological examination findings: abnormal findings ABSENT Qualified Code(s): Z01.419 - Encounterfor gynecological examination (general) (routine) without abnormal findings (2) Atrophic vaginitis: Status: Acute Comment: managed with estradiol cream Orders: Orders SCRN MAMM (CAD)W/RUIZ BILAT 05/23/25 Z12.39 - Encounter for other screening formalignant neoplasm of breast Dexa Bone Density Study Today Z78.0 - Asymptomatic menopausal state Plan Completed breast and pelvic exam Reviewed diet and exercise Pap NA Mammogram ordered breast self exam encouraged monthly Colonoscopy 2022 Bone density [place] per Dr Miranda >1 year. Last BMD 05/2023. 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 Hermila Macario MD Status:[facility] Location: [place] [address] History and Physical Date of Admission: 01/11/23 Chief Complaint: C diff Details: REJI GARRETT, is a 72 F who presents to the office today to establish with Gastroenterology for recurrent C difficile colitis. Diarrhea started after starting antibiotics for diverticulitis in 06/2022. This was her only bout of diverticulitis. Diarrhea resolved with treatment of C diff in 09/2022, then returned 3 days after completing antibiotic. Now taking vancomycin qid x 10 days, started it two days ago, diarrhea persists. Still poor appetite so not eating much, is losing weight. Dificid was cost prohibitive. She hasn't had any abd pain since the treatment for diverticulitis. No melena or hematochezia. She is tired. No nausea, vomiting, heartburn, dysphagia. ED visit in 06/[address], treated with omnicef and flagyl. Had presented with abd pain. 06/2022 CT: acute diverticulitis in distal descending and proximal sigmoid colon 09/2022 +C diff, neg enteric pathogens, neg giardia 10/2022 +C diff Colonoscopy approx 7 yrs ago, had polyps, was done at [facility] Quit drinking alcohol last year ROS Const Constitutional: No fatigue, fever(s), headache(s), weight change (loss), sleep problems, abnormal sleep pattern or change in appetite ENT ENT: No headache(s), difficulty swallowing, hoarseness or sore throat Resp Respiratory: No cough, hemoptysis or shortness of breath Cardio Cardiology: No chest pain at rest or generalized swelling Gastro GI: Positive for change in bowel habits and diarrhea; No abdominal pain, belching, bloating, change in stool character, coffee ground emesis, constipation, cramping, heartburn, difficulty swallowing, feeling full early, excessive flatus, incontinent of stools, Vomiting blood/hematemesis, Blood in stool, loose stools, Black,tarry stools, nausea/dyspepsia, pain with swallowing or vomiting Musc Musculoskeletal: No joint pain, back pain, joint swelling, numbness or tingling Skin Skin: No itchy eyes or rash Neuro Neurology: No behavioral changes, confusion, headache(s), numbness or tingling Psych Psychiatric: No abnormal sleep pattern, No anxiety, No behavioral changes, No change in appetite, No confusion and No depression Endo Endocrine: No cold intolerance, fatigue, heat intolerance, increased thirst/drinking or weight change (loss) Aller/Imm Allergy/Immunologic: No food intolerance or itchy eyes Mark/Lymp Hematologic/Lymphatic: No easy bleeding, easy bruising or enlarged lymph nodes Exam Const General: cooperative, healthy appearing and comfortable Nutritional Appearance: average body habitus Orientation: alert, awake and oriented x3 HENMT Head: normal to inspection Eyes Sclera: sclerae normal Resp Effort & Inspection: normal respiratory effort GI Inspection: normal to inspection Palpation: soft, no hepatosplenomegaly, no masses and nontender Skin General: no rashes or lesions noted and no jaundice Quality Reporting Tobacco Screening ([facility] 138) Smoking Status: Former smoker Assessment and Plan Assessment and Plan (1) C. difficile colitis: Status: Acute Plan: C diff colitis since being treated with antibiotics for diverticulitis in 06/2022, that was first time she had diverticultitis On vancomycin qid x 10 days for second round of antibiotic for recurrent C diff,will call her in 2 wks so see how she is doing, may need taper of vanco or course of dificid (would talk to drug rep) Start probiotic Will schedule her for colonoscopy considering hx of polyps, last scope 7 yrs ago (2) Diverticula of colon: Status: Acute Plan: I have examined the patient and the H&P has been reviewed. There are no clinicalchanges since date of exam. 01/11/23 1031 <Electronically signed by Hudson Wade DO> Cosigner Signature (if applicable): CC: Dr. Hermila Macario MD; Hudson Wade, ~ Signed [facility] Work Phone: 1(173) 697-965507-31-2023 Procedure [facility] 01-11-2023 Procedure [facility]01-27-[address] Garcia [facility] July 10, 2022 12:19pm Note Date/Time July 10, 2022 1 0:21am [facility] Medical Records Department [address] [place] [address] Emergency Department Summary 07/10/22 MR#: [id number] Acct: [id number] Name: REJI GARRETT Rep #:[id number] : 1950 71 From: Octavio Garcia MD PCP: Dr. Hermila Macario MD Status:REG ER Location: ED HPI HPI - GI History of Present Illness Chief Complaint: Diarrhea Informant: patient Abdominal Pain/Flank Pain Onset: Days Context: Gradual Onset Timing: Continuous Nausea/Vomiting/Emesis GI Symptom: Negative for Nausea or Vomiting Diarrhea/Melena/Hematochezia GI Symptom: Positive for Diarrhea; Negative for Melena or Hematochezia Associated Symptoms Associated Symptoms: Negative for Dysuria, Frequency or Hematuria Narrative Narrative: [id number] female history of diverticulosis and hypertension. On Wednesday was diagnosed here with diverticulitis by CAT scan. Had unremarkable labs. Was started on Omnicef and Flagyl. Patient has had significant diarrhea the last several days. Almost every 20 minutes. No melena. No fever. Nausea and vomiting resolved earlier in the week. Denies any further fevers. No melena or hematemesis. States she has not had much of an appetite but is drinking fluids. States the pain in her left lower quadrant has resolved. Prior similar symptoms: No Recent Illness/Hospitalization: No PFSH PFSH Medical History (Updated 07/10/22 @ 10:[address] Octavio Garcia MD) Abnormal mammogram Home Medications calcium carbonate 600 mg calcium (1,500 mg) tablet (Calcium) 600 mg PO BID 03/23/18 [History Last Taken Unknown] estradiol 0.01% (0.1 mg/gram) vaginal cream (Estrace) See Rx Instructions vaginal .COMPLEX #42.5 grams 03/31/19 [Rx Last Taken Unknown] dupilumab 200 mg/1.14 mL subcutaneous pen injector (Dupixent) 200 mg subcut Q2W 02/11/21 [History Last Taken Unknown] triamcinolone acetonide 0.025 % topical cream 1 applic topical DAILY 02/11/21 [History Last Taken Unknown] blood pressure monitor #1 ea 04/27/22 [Rx Last Taken Unknown] hydroxyzine HCl 10 mg tablet 10 mg PO TID PRN anxiey #20 tabs 04/27/22 [Rx Last Taken Unknown] atorvastatin 10 mg tablet (Lipitor) 10 mg PO QHS #90 tabs 05/25/22 [Rx Last Taken Unknown] lisinopril 5 mg tablet 5 mg PO DAILY #90 tabs 06/26/22 [Rx Last Taken Unknown] cefdinir 300 mg capsule 300 mg PO BID #19 caps 07/06/22 [Rx Last Taken Unknown] hydrocodone-acetaminophen 5-325mg 5mg-325mg 1 tab PO Q6H PRN pain 3 days #12 tabs 07/06/22 [Rx Last Taken Unknown] metronidazole 500 mg tablet 500 mg PO TID #29 tabs 07/06/22 [Rx Last Taken Unknown] Allergy/AdvReac Type Severity Reaction Status Date / Time No Known Allergies Allergy Verified 07/10/22 09:57 Family History Mother Breast cancer Father Cancer liver Brother Skin cancer Surgical History H/O breast biopsy Social History adopted: No household members: none housing: house number of children: 1 current occupational status: retired current occupation: worked for a [employer] current occupational exposures/hazards: No pets and animals: Yes history of recent travel: Yes out of country: Yes Smoking Status: Former smoker quit date: 06/14/01 pack-years: 32 Electronic Cigarette Use: not used second hand exposure: No alcohol intake: current alcohol intake frequency: a few times a week substance use type: does not use caffeine: No what type of physical activity do you participate in: none seatbelt use: always do you feel safe at home: Yes additional social history: Single ROS ROS ED ROS Narrative Diarrhea. Review of Systems ROS Unobtainable: Denies due to encephalopathy Constitutional Constitutional ED: Denies chills or fever(s) ENT ENT ED: Denies ear pain Cardiovascular Cardiovascular: Denies chest pain Respiratory/Chest Respiratory/Chest: Denies cough or dyspnea Gastrointestinal Gastrointestinal: Reports diarrhea; Denies abdominal pain, constipation, melena,nausea or vomiting Genitourinary Genitourinary ED: Denies dysuria or hematuria Integumentary Denies abscess Neurologic Neurologic: Denies headache(s) Psychiatric Psychiatric: Denies anxiety Endocrine Endocrinology: Denies polydipsia Hematologic/Lymphatic Hematologic/Lymphatic: Denies easy bleeding Allergic/Immunologic Allergic/Immunologic ED: Denies mouth swelling or tongue swelling EXAM Physical Exam Narrative Exam Narrative: Well-appearing 71-year-old female. Vital signs are stable and afebrile. H EENTexam unremarkable. Neck nontender. Lungs clear to auscultation. Heart regularrhythm rate about 98 no murmur. Abdomen soft nontender normal bowel sounds no peritoneal signs. Moving all 4 extremities. Calves are nontender with edema. Neurologically she is awake and alert with no focal motor deficits. Clinically patient looks well. Const Vital Signs: 07/10/22 09:57 Temperature 97.6 F L Temperature Source Temporal Pulse Rate 98 Respiratory Rate 14 Blood Pressure 125/104 H Blood Pressure Mean 111 Pulse Ox 98 Oxygen Delivery Method Room Air Positive well nourished and well developed; Negative for cachectic, contracturesor unkempt General Appearance ED: well developed and NAD; Negative for unkempt, cachectic, contractures or pallor Nutritional Appearance: Negative for cachectic HEENT Reports moist mucous membranes normocephalic and atraumatic; Negative for trauma or tenderness Eyes PERRL and EOMs intact bilaterally General Eye ED: Negative for pale conjunctiva or scleral icterus Neck No no lymphadenopathy, supple and no JVD General: Negative for tenderness Lymph Lymphatic: Negative for other Resp normal respiratory effort and clear to auscultation bilaterally Effort and Inspection: Negative for respiratory distress Auscultation: Negative for rales, rhonchi or wheezes Cardio regular rate, regular rhythm, S1 normal heart sound, S2 normal heart sound and no murmurs Rate: Negative for bradycardia or tachycardic Rhythm: Negative for abnormal rhythm GI non-tender, non-distended and no masses Inspection: Negative for abdominal distention Palpation: soft; Negative for tender, guarding or rigid Back/Spine no CVA tenderness General Back: Negative for CVA tenderness Cervical Spine: Negative for cervical spine tenderness Thoracic Spine / Upper Back: Negative for thoracic spinal tenderness Lumbar Spine / Lower Back: Negative for lumbar spinal tenderness Coccyx: Negative for other Extremity full ROM General Extremety ED: Negative for edema or tenderness General Extremity: Negative for edema Neuro CN's II-XII intact bilaterally and moves all extremities Sensorium / Orientation: alert, oriented to person, oriented to place and oriented to time; Negative for orientation impaired, confused, lethargic or stuporous Motor Exam: strength 5/5 throughout Psych mental status grossly normal and thought process normal Appearance: Negative for unkempt Attitude: No agitated Mood & Affect: Negative for depressed or anxious Skin no wounds General Skin Exam: Negative for jaundice or pallor Lesions: no lesions and No lesion noted Rashes: no rashes and No rashes noted Trauma: Negative for abrasion MDM MDM MDM Narrative Medical decision making narrative: 71-year-old female diagnosed with diverticulitis on Wednesday. Has been on Omnicefand Flagyl and is improving. She has had diarrhea the last several days. Clinically I think this is most likely just a side effect of the antibiotics andbeing treated for diverticulitis. He clinically looks well. Should be treated with IV fluids. I will obtain screening labs of CBC and chemistry. We will obtain a C. difficile if she has a bowel movement here. She is only had 1 today. Clinically I do not think this is C. difficile. Repeat exam at 12:16 PM patient doing well. She has had no bowel movement or diarrhea the entire time she is here. She does not feel like she can have one at this time. Hence we will not send a stool sample. We discussed her labs. Her potassium should improve as the diarrhea resolves. She will continue her current antibiotics for her diverticulitis. Follow-up with her primary care physician. Return if worse. She was treated with a liter of fluid here. Lab Data Attestation: I reviewed the patient's lab results. Lab results narrative: CBC normal white count of 6.9. H&H of 13.8 and 42. Platelets 215. Electrolytes show potassium of 3.1 consistent with her diarrhea. Gap of 16. Normal BUN and creatinine 13 and 0.7 glucose of 77. These are consistent with her prior labs. I did review her old records. Labs: Laboratory Results - last 24 hr 07/10/22 07/10/22 10:30 10:30 WBC 6.9 RBC 4.46 Hgb 13.8 Hct 42.1 MCV 94.4 MCH 30.9 MCHC 32.8 RDW Std Deviation 45.0 H RDW Coeff of [place] 13.0 Plt Count 215 MPV 10.3 Immature Gran % (Auto) 0.400 Neut % (Auto) 80.8 H Lymph % (Auto) 4.6 L [place] % (Auto) 7.1 Eos % (Auto) 6.8 H Baso % (Auto) 0.3 Absolute Neuts (auto) 5.6 Absolute Lymphs (auto) 0.32 L Nucleated RBC % 0 Differential Comment SCANNED Sodium 136 Potassium 3.1 L Chloride 98 Carbon Dioxide 22.0 Anion Gap 16 H BUN 13 Creatinine 0.70 Estim Creat Clear Calc 47.78 Est GFR (MDRD) Af Amer 106 Est GFR (MDRD) Non-Af 88 BUN/Creatinine Ratio 18.6 Glucose 77 Calcium 8.9 Discharge Plan Triage Chief Complaint: Diarrhea ED Provider: Octavio Garcia Dx/Rx/DC Orders Clinical Impression: Diarrhea, History of diverticulitis Instructions: Treating Diarrhea, ED Diverticulitis Prescriptions: No Action calcium carbonate [Calcium 600] 600 mg calcium (1,500 mg) tablet 600 mg PO BID estradiol [Estrace] 0.01 % (0.1 mg/gram) cream See Rx Instructions Vaginal .COMPLEX Qty: 42.5 2RF Dose Instruction: pea sized amount VAGINAL every other day X 4 weeks then twice a week; Rx Instructions: pea sized amount VAGINA twice a week; triamcinolone acetonide 0.025 % cream 1 applic topical DAILY Dupixent Pen 200 mg/1.14 mL pen injector 200 mg subcut Q2W hydroxyzine HCl 10 mg tablet 10 mg PO TID PRN (Reason: anxiey) Qty: 20 0RF (DME) blood pressure monitor Kit See Rx Instructions .Route Qty: 1 0RF Rx Instructions: As directed atorvastatin [Lipitor] 10 mg tablet 10 mg PO QHS Qty: 90 1RF hydrocodone-acetaminophen 5-325 mg tablet 1 tab PO Q6H PRN (Reason: pain) 3 Days Qty: 12 0RF metronidazole 500 mg tablet 500 mg PO TID Qty: 29 0RF cefdinir 300 mg capsule 300 mg PO BID Qty: 19 0RF lisinopril 5 mg tablet 5 mg PO DAILY Qty: 90 1RF Primary Care Provider: Hermila Macario Referrals: Hermila Macario MD [Primary Care Provider] - 3-5 Days if not improving Activity Restrictions/Additional Instructions: Plenty of fluids and rest. [id number]-[id number] probiotic and/or yogurt to help replace the normal bacteria in your colon. Follow-up with your doctor if not improving. Continue and finish the antibiotics. Your potassium should improve as you start eating more. If you have continued diarrhea it will need to be rechecked. It was just below normal today at 3.1. Disposition Disposition: Home, Self Care What to do if you have Problems For any increased pain, shortness of breath, bleeding, nausea or vomiting, chestpain, or any unexpected problems, contact your Primary Care Provider. Call [facility] ([phone]) or report to the closest Emergency Room. Call 911 if necessary. 07/10/22 1219 <Electronically signed by Octavio Garcia MD> Cosigner Signature (if applicable): CC: Dr. Hermila Macario MD ~ Signed [facility] Work Phone: [phone] Hospital Discharge instructions Additional Instructions Plenty of fluids and rest. Ptmb-ppe-npkygew probiotic and/or yogurt to help replace the normal bacteria in your colon. Follow-up with your doctor if not improving. Continue and finish the antibiotics. Your potassium should improve as you start eating more. If you have continued diarrhea it will need to be rechecked. It was just below normal today at 3.1.[facility] Work Phone: Evaluation note* Diagnosis Onset Date Resolution Status Atrophic vaginitis acute HTN (hypertension) chronic Encounter for routine gynecological examination noneactive HTN (hypertension) chronic Establishing care with new doctor, encounter for noneactive Situational anxiety noneacti ve Essential hypertension nonea ctive Balance problems noneactive [facility] Work Phone: Evaluation note* Diagnosis Onset Date Resolution Status Atrophic vaginitis acute HTN (hypertension) chronic Encounter for routine gynecological examination noneactive HTN (hypertension) chronic Establishing care with new doctor, encounter for noneactive Situational anxiety noneacti ve Essential hypertension nonea ctive Balance problems noneactive Mixed hyperlipidemia acute Elevated liver enzymes nonea ctive Situational anxiety noneacti ve Essential hypertension nonea ctive Balance problems noneactive [facility] Work Phone: Evaluation note* Diagnosis Onset Date Resolution Status Mixed hyperlipidemia acute Sleep difficulties noneactiv e Diarrhea noneactive Elevated liver enzymes nonea ctive Situational anxiety noneacti ve Essential hypertension nonea ctive [facility] Work Phone: Evaluation note* Diagnosis Onset Date Resolution Status Mixed hyperlipidemia acute Sleep difficulties noneactiv e Diarrhea noneactive Elevated liver enzymes nonea ctive Situational anxiety noneacti ve Essential hypertension nonea ctive C. difficile colitis acute Diverticula of colon acute [facility] Work Phone: Evaluation note* Diagnosis Onset Date Resolution Status Mixed hyperlipidemia acute Sleep difficulties noneactiv e Situational anxiety noneacti ve Essential hypertension nonea ctive Dry cough noneactive Mixed hyperlipidemia acute Sleep difficulties noneactiv e Headache noneactive Situational anxiety noneacti ve Essential hypertension nonea ctive Atrophic vaginitis acute Routine gynecological examination noneactive Mixed hyperlipidemia acute Sleep difficulties noneactiv e Headache noneactive Situational anxiety noneacti ve Essential hypertension nonea flive [facility] Work Phone: Evaluation note* Diagnosis Onset Date Resolution Status Admit Date Atrophic vaginitis acute November 132024 1:10pm Encounter for routine gynecological examination noneactive November 132024 1:10pm [facility] Work Phone: Hospital Discharge instructionsAdditional Instructions Your CT today showed 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 You can follow-up with your family doctor for this. He also have significant inflammation and fullness of your sinuses. Because of your history of C. difficile we will hold off on antibiotics at this time until you see the ear nose and throat. In the meantime start the medications prescribed today to hopefully help with the sinuses and ultimately her headaches.[facility] Work Phone: Progress note Author Demi Chung [facility] Note Date/Time November 13, 2024 1:36p m [facility] [address] [place] [address], [address] [place] [address] OFFICE VISIT Date of Service: 11/13/24 MR#: [id number] Acct: [id number] Name: REJI GARRETT Rep #: [id number] : 1950 Provider: GABRIELLA Chung Age/Sex: 74/F Location: [facility] [place] Status: Signed Intake Vital Signs 10/27/23 13:59 06/29/24 14:25 11/13/24 13:13 11/13/24 13:19 Height 5 ft 5 in 5 ft 5 in 5 ft 5 in 5 ft 5 in Weight: 183 lb 179 lb 8 oz BMI 30.4 29.8 BP 136/82 H 108/68 Blood Pressure Location Lt brachial Position Sitting Respiration 12 Pulse 63 Pulse Source Monitor Temp 97.7 F L Pulse Oximetry (%) 97 Oxygen Delivery Method room air 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 Complaint: Annual 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 Required: No Is patient in pain?: No Allergies No Known Allergies Allergy (Verified 11/13/24 13:24) Medications ?Medication ?Instructions ?Recorded ?Confirmed ?Type calcium carbonate (Calcium 600) 600 mg PO BID 03/23/18 11/13/24 History Lactobacillus acidophilus 250 500 mmu cells PO DAILY 0 01/05/23 11/13/24 History million cell capsule (Probiotic Acidophilus) dupilumab 200 mg/1.14 mL 300 mg subcut Q2W 04/28/23 0 11/13/24 History subcutaneous pen injector (Dupixent) estradiol 0.01% (0.1 mg/gram) See Rx Instructions vagi nal 10/18/23 11/13/24 Rx vaginal cream (Estrace) .COMPLEX #42.5 grams hydroxyzine HCl 10 mg tablet 10 mg PO TID PRN anxiey # 20 tabs 11/24/23 11/13/24 Rx alendronate 70 mg tablet (Fosamax) 70 mg PO QWEEK #12 tabs 07/16/24 11/13/24 Rx atorvastatin 10 mg tablet (Lipitor) 10 mg PO QHS #90 t abs 10/09/24 11/13/24 Rx losartan 25 mg tablet 25 mg PO DAILY #90 tabs 09/1311/13/24 Rx trazodone 50 mg tablet 25 mg (1/2 x 50 mg) PO QHS # 45 tabs 10/09/24 11/13/24 Rx Is last menstrual period known: No Post menopausal: Yes Patient : No : No PFSH Medical History History of Clostridium difficile infection Wears glasses Wears dentures Anxiety Arthritis High cholesterol History of diverticulitis Former smoker Hypertension Abnormal mammogram Surgical History Hx of colonoscopy Hx of tooth extraction H/O breast biopsy Family History Mother Breast cancer Father Cancer liver Brother Skin cancer Social History adopted: No household members: none housing: house number of children: 1 current occupational status: retired current occupation: worked for a [employer] current occupational exposures/hazards: No pets and animals: Yes history of recent travel: Yes out of country: Yes Smoking Status: Former smoker quit date: 06/14/01 pack-years: 32 Electronic Cigarette Use: not used second hand exposure: No alcohol intake: current alcohol intake frequency: holidays/special occasions only substance use type: does not use caffeine: No what type of physical activity do you participate in: none seatbelt use: always do you feel safe at home: Yes additional social history: Single History 1 Elective abortions Hx Para 1 Spontaneous abortions Hx # Term Pregnancies Ectopic pregnancies Hx # Pregnancies Multiple births # of living children 1 Past Pregnancies Del. Date Name GA/Weeks Outcome Route Bth Weight Infant Gen Labor Lgth Anesthesia Del Locatn Provider FOB Unknown 1989- [facility] Encounter for routine gynecological examination Details: REJI GARRETT is a 74 year old who presents for annual exam. Denies concerns. Usingestradiol cream twice a week, not needing refill yet. Last PAP: NA History of abnormal PAP: no Last mammogram: 05/2024 History of abnormal mammogram: no Colon cancer screenin Other preventative health care screenings: Ruth Female Reproductive History Questions: metorrhagia: No and sexually active: No ROS Const Constitutional: Denies fatigue, weight gain or weight loss Cardio Card: Denies chest pain Resp Resp: Denies cough or dyspnea on exertion GI GI: Denies abdominal pain, bloating, change in stool character, constipation or vomiting : Reports as per HPI; Denies difficulty voiding, pelvic pain, urinary frequency, urinary incontinence,urinary urgency, vaginal discharge or vaginal pruritus Exam Const General: cooperative, healthy appearing, no acute distress and well developed Orientation: alert, oriented to person and oriented to place H[place]UT Head: normal to inspection Neck Neck: normal visual inspection Thyroid: thyroid normal Lymphatic: no lymphadenopathy noted Chest Breast inspection: normal inspection of the breasts and normal inspection of theaxillae Breast palpation: normal palpation of the breasts, normal palpation of the axillae and no axillary lymphadenopathy Resp Effort & Inspection: normal respiratory effort GI Palpation: soft, no masses and nontender Rectal Exam: deferred External Female Exam: normal external appearance and normal appearance of the urethra Urethra: normal appearance of the urethra and normal palpation Speculum Exam - Vagina: normal vaginal discharge and vagina atrophic (mild) Speculum Exam - Cervix: normal appearance of the cervix Bimanual Exam- Vagina & Uterus: normal bimanual exam, uterine size normal, uterine shape normal and non-tender Bimanual Exam- Adnexa, other: normal adnexae, no masses, normal and non-tender Pelvic Support: normal Neuro General: patient alert and patient oriented x3 Psych Affect: normal affect Coding Level of Care Code Pelvic/Breast Diagnoses Encounter for gynecological examination without abnormal finding Z01.419 Gynecological examination findings: abnormal findings ABSENT Atrophic vaginitis N95.2 Assessment and Plan Assessment and Plan (1) Encounter for routine gynecological examination: Qualifiers: Gynecological examination findings: abnormal findings ABSENT Qualified Code(s): Z01.419 - Encounter for gynecological examination (general) (routine) without abnormal findings (2) Atrophic vaginitis: Status: Acute Comment: managed with estradiol cream Orders: Orders SCRN MAMM (CAD)W/RUIZ BILAT 05/23/25 Z12.39 - Encounter for other screening formalignant neoplasm of breast Dexa Bone Density Study Today Z78.0 - Asymptomatic menopausal state Plan Completed breast and pelvic exam Reviewed diet and exercise Pap NA Mammogram ordered breast self exam encouraged monthly Colonoscopy [address]22 Bone density [place] per Dr Miranda >1 year. Last BMD 05/2023. Rpt ordered RTO 1 year, prn with problems Demi Chung BREAKFAST AND ROOM ATTENDANT 11/13/24 1336 <Electronically signed by Demi Kamara s [employer] FARM MANAGER [employer]GAR [employer]E FARM MANAGER-C> Date _ Demi Chung [employer] FARM MANAGER SUGAR [employer]E FARM MANAGER-C Cosigner Signature: Date (if applicable) CC: ~ [facility] Work Phone: Reason for referral (narrative)No reason for referral information availableMendocino State Hospital Work Phone: Chief Complaint and Reason for Visit Chief Complaint Admit Date Annual ([employer]) November 13, 2024 1:10p m headache February 20, 2025 12:46pm Reason for Visit Admit Date Atrophic vaginitis November 13, 2024 1:10p m Encounter for routine gynecological exam ination November 13, 2024 1:10pm Chief Complaint Annual ([employer]) SCREENING BP CHECK SUGAR CANE FARM MANAGER EST. CARE, NEEDS PPW Reason for Visit Atrophic vaginitis HTN (hypertension) Encounter for routine gynecological examination HTN (hypertension) Establishing care with new doctor, encounter for Situational anxiety Essential hypertension Balance problems Chief Complaint Annual ([employer]IL[employer]) SCREENING BP CHECK SUGAR [employer] FARM MANAGER EST. CARE, NEEDS PPW 1 M FU ABDOMINAL PAIN diarrhea Reason for Visit Atrophic vaginitis HTN (hypertension) Encounter for routine gynecological examination HTN (hypertension) Establishing care with new doctor, encounter for Situational anxiety Essential hypertension Balance problems Mixed hyperlipidemia Elevated liver enzymes Situational anxiety Essential hypertension Balance problems Chief Complaint ABDOMINAL PAIN diarrhea 4 M FU Reason for Visit Mixed hyperlipidemia Sleep difficulties Diarrhea Elevated liver enzymes Situational anxiety Essential hypertension Chief Complaint ABDOMINAL PAIN diarrhea 4 M FU ER FU Reason for Visit Mixed hyperlipidemia Sleep difficulties Diarrhea Elevated liver enzymes Situational anxiety Essential hypertension C. difficile colitis Diverticula of colon Chief Complaint 4 M FU ER FU Reason for Visit Mixed hyperlipidemia Sleep difficulties Diarrhea Elevated liver enzymes Situational anxiety Essential hypertension C. difficile colitis Diverticula of colon Chief Complaint PERSISTENT COUGH/MED QUESTION Hypersomnia, unspecified 5 WK FU Annual/Problem 1 m fu SCREENING Reason for Visit Mixed hyperlipidemia Sleep difficulties Situational anxiety Essential hypertension Dry cough Mixed hyperlipidemia Sleep difficulties Headache Situational anxiety Essential hypertension Atrophic vaginitis Routine gynecological examination Mixed hyperlipidemia Sleep difficulties Headache Situational anxiety Essential hypertension Chief Complaint Admit Date Annual ([employer]) November 13, 2024 1:10p m Chief Complaint Admit Date Annual ([employer]IL[employer]) November 13, 2024 1:10p m headache February 20, 2025 12:46pm 6 M FU February 26, 2025 10:24am Reason for Visit Admit Date Atrophic vaginitis November 13, 2024 1:10p m Encounter for routine gynecological exam ination November 13, 2024 1:10pm Eczema February 26, 2025 10:24am Mixed hyperlipidemia February 26 10:24am Sleep difficulties February 26, 2025 10:24am Osteopenia February 26, 2025 10:24am Situational anxiety February 26, 2025 10:24am Essential hypertension February 26, 2 025 10:24am Family History No Family History Records Found Relationship Condition Age at Onset Recorded Date/T han mother Malignant neoplasm of breast Unknown father Malignant neoplasm Unknown brother Malignant neoplasm of skin Unknown Advance Directives No Advanced Directives Records Found Advance Directive Response Recorded Date/ Time Living Will No December 16, 2014 5 :55pm Power of Drafting Detailer No December 16, 2014 5:55pm Advance Directive Response Recorded Date/ Time Living Will No July 10 10:41am Power of Drafting Detailer No July 10, 2022 10:41am Advance Directive Response Recorded Date/ Time Living Will No July 10 11:41am Power of Drafting Detailer No July 10, 2022 11:41am Advance Directive Response Recorded Date/ Time Name of Medical Power of Drafting Detailer BROTHER January 05, 2023 3:06pm Living Will Yes January 05, 2023 3:06pm Power of Drafting Detailer Yes January 05 3:06pm Advance Directive Response Recorded Date/ Time Living Will Yes January 05, 2023 2:06pm Power of Drafting Detailer Yes January 05 2:06pm Advance Directive Response Recorded Date/ Time Do you have a Healthcare Power of Drafting Detailer? No February 20, 2025 2:17pm Summary Purpose Additional Source Comments Goals (unrecognized section and content) Goals may be documented in a n alternate sectionGoals may be documented in an alternate sectionGoals may be documented in an alternate sectionGoals may be documented in an alternate sectionGoals may be documented in an alternate sectionGoals may be documented in an alternate sectionGoals may be documented in an alternate sectionGoals may be documented in an alternate section Care Teams (unrecognized sec tion and content) Team Status: Active Member Role Status Dates No Primary Care Physician Family Provider Active Dr. Hermila Macario MD Primary Care Provider Active Team Status: Inactive Member Role Status Dates No Primary Care Physician Primary Care Provider, Refer ring Provider Active Demi Chung [employer], [employer] MANAGER-C Attending Provider Active Team Status: Inactive Member Role Status Dates No Primary Care Physician Primary Care Provider, Refer ring Provider Active Dr. Hermila Macario MD Attending Provider Active Team Status: Inactive Member Role Status Dates Dr. Hermila Macario MD Primary Care Pro vider, Attending Provider, Referring Provider Active Team Status: Inactive Member Role Status Dates No Primary Care Physician Primary Care Provider Active Demi Chung [employer]GER, [employer] MANAGER-C Attending Provider, Referring Provider Active Team Status: Inactive Member Role Status Dates Dr. Hermila Macario MD Primary Care Provider Active Dr. Miguel Burk DO Emergency Provider Active Team Status: Inactive Member Role Status Dates Dr. Hermila Macario MD Primary Care Provider Active Dr. Octavio Garcia MD Emergency Provider Active Team Status: Inactive Member Role Status Dates Dr. Hermila Macario MD Primary Care Provider Active Dr. Miguel Burk DO Attending Provider, Emergency Provide r Active Team Status: Inactive Member Role Status Dates Dr. Hermila Macario MD Primary Care Provider Active Dr. Octavio Garcia MD Attending Provider, Emergency Pro vider Active Team Status: Inactive Member Role Status Dates Dr. Hermila Macario MD Primary Care Provider, Attendi ng Provider Active Team Status: Inactive Member Role Status Dates Dr. Hermila Macario MD Primary Care Provider, Referri ng Provider Active Lupe Gamez [employer]GER, [employer] MANAGER-C Attending Provider Active Team Status: Active Member Role Status Dates Dr. Hermila Macario MD Primary Care Provider, Referri ng Provider Active Dr. Hudson Wade DO Attending Provider, Other Prov ider Active Team Status: Inactive Member Role Status Dates Dr. Hermila Macario MD Primary Care Provider, Referri ng Provider Active Dr. Hudson Wade DO Attending Provider Active Team Status: Inactive Member Role Status Dates Dr. Hermila Macario MD Referring Provider Active Demi Chung [employer]ARM MANAGER, [employer]ARM MANAGER-C Attending Provider Active Team Status: Inactive Member Role Status Dates Dr. Hermila Macario MD Attending Provider, Referring Provider Active Team Status: Inactive Member Role Status Dates Dr. Hermila Macario MD Primary Care Provider Active Demi Chung [employer] MANAGER, [employer]ARM MANAGER-C Attending Provider, Referring Provider Active Team Status: Inactive Member Role Status Dates Dr. Hermila Macario MD Primary Care Provider Active Start: November 13, 2024 End: November 13, 2024 Dr. Hermila Macario MD Referring Provider Active Start: November 13, 2024 End: November 13, 2024 Demi Chung [employer] MANAGER, [employer]ARM MANAGER-C Attending Provider Active Start: November 13, 2024 End: November 13, 2024 Team Status: Active Member Role/Relationship Status Dates Dr. Hermila Macario MD Primary Care Provider Active Team Status: Inactive Member Role/Relationship Status Dates Dr. Hermila Macario MD Primary Care Provider Active Start: November 13, 2024 End: November 13, 2024 Dr. Hermila Macario MD Referring Provider Active Start: November 13, 2024 End: November 13, 2024 Demi Chung [employer] MANAGER, [employer]ARM MANAGER-C Attending Provider Active Start: November 13, 2024 End: November 13, 2024 Team Status: Inactive Member Role/Relationship Status Dates Dr. Hermila Macario MD Primary Care Provider Active Start: February 20, 2025 End: February 20, 2025 Dr. Estrella No DO Emergency Provider Active Start: February 20, 2025 End: February 20, 2025 Team Status: Inactive Member Role/Relationship Status Dates Dr. Hermila Macario MD Primary Care Provider Active Start: February 20, 2025 End: February 20, 2025 Dr. Estrella No DO Attending Provider Active Start: February 20, 2025 End: February 20, 2025 Dr. Estrella No DO Emergency Provider Active Start: February 20, 2025 End: February 20, 2025 Team Status: Inactive Member Role/Relationship Status Dates Dr. Hermila Macario MD Primary Care Provider Active Start: February 26, 2025 End: February 26, 2025 Dr. Hermila Macario MD Attending Provider Active Start: February 26, 2025 End: February 26, 2025 Dr. Hermila Macario MD Referring Provider Active Start: February 26, 2025 End: February 26, 2025 INFORMATION SOURCE (unrecogn ized section and content) DATE CREATED AUTHOR 04/21/2025 [facility] FOR RECORDS PERTAINING TO PATIENTS WHO ARE OR HAVE BEEN ENROLLED IN A CHEMICAL DEPENDENCY/SUBSTANCEABUSE PROGRAM, SOME INFORMATION MAY BE OMITTED. This clinical summary was aggregated from multiple sources. Caution should be exercised in using it in the provision of clinical care. This summary normalizes information from multiple sources, and as a consequence, information in this document may materially change the coding, format and clinical context of patient data. In addition, data may be omitted in some cases. CLINICAL DECISIONS SHOULD BE BASED ON THE PRIMARY CLINICAL RECORDS. [employer] provides no warranty or guarantee of the accuracy or completeness of information in this document.
--- NOTE | 2025-05-23 14:30 | BI_ITS ---
EXAM: SCRN MAMM (CAD)W/RUIZ BILAT DATE: 05/23/2025 CLINICAL HISTORY: F, Age 74 y/o , SCREENING FOR BREAST CANCER Mother with breast cancer. Prior left excisional breast biopsy. TECHNIQUE: Procedure Code: [id number] Modality: MG Procedure: SCRN MAMM (CAD)W/RUIZ BILAT COMPARISON: Prior exam(s) dated May 22, 2024.. FINDINGS: TISSUE DENSITY: The breasts are heterogeneously dense, which may obscure small masses. Bilateral Breast Mammographic Findings: There is an 8.8 mm 7.8 mm nodular density in the upper slightly lateral aspect of the left breast. Sonographic correlation recommended. Stable bilateral small axillary lymph nodes. BI/SCRN MAMM (CAD)W/RUIZ BILAT IMPRESSION: 8.8 mm 7.8 mm nodular density in the upper slightly lateral aspect of the left breast as described. Sonographic correlation recommended. OVERALL FINAL ASSESSMENT BI-RADS 0: INCOMPLETE - NEED ADDITIONAL IMAGING EVALUATION. RECOMMENDATION: Ultrasound Recommended Additional Recommendation none A letter with findings and recommendations will be mailed to the patient. Reading Location: [place] [id number]
== END | disposition home or self-care (01) ==
LOC: OPBD 13:56
PROVIDERS: PCP Internal Medicine; Referring Provider Nurse Practitioner Women's Health; Visit Provider Nurse Practitioner Women's Health
DX: Z13.820 Encounter for screening for osteoporosis (principal); Z78.0 Asymptomatic menopausal state; Z12.31 Encounter for screening mammogram for malignant neoplasm of breast
CPT/HCPCS: 77063; 77067; 77080

== ENCOUNTER → 2025-06-05 | Outpatient (CLI) | payer MEDICARE, OTHER, SELFPAY ==
--- NOTE | 2025-06-05 13:20 | US_ITS ---
PROCEDURE: BREAST LIMITED UNILATERAL 06/05/2025 REASON FOR EXAM: F, Age 74 y/o , ABN MAMM Inconclusive mammogram study dated 05/23/2025 showed a mass in the left breast. Evaluate. COMPARISON: Mammogram studies dated 05/23/2025 and 05/22/2024. TECHNIQUE: Procedure Code: USBRSTLIMIT Modality: US Procedure: BREAST LIMITED UNILATERAL FINDINGS: There is a solid, hypoechoic mass identified in the left breast at the 12 o'clock, 7 cm from nipple position measuring 8 x 7 x 4 mm. This mass is wider than it is tall and does not produce any posterior shadowing. The margins are slightly irregular. There was no blood flow to the mass. The mass appears to correlate to the nodular density seen on the mammogram. The mass appears to represent a probable fibroadenoma however, a short-term six-month follow-up mammogram and ultrasound are recommended to document stability. US/Breast Limited Unilateral IMPRESSION: There is a solid, hypoechoic mass identified in the left breast at the 12 o'ho ck, 7 cm from nipple position measuring 8 x 7 x 4 mm. This mass is wider than it is tall and does not produce any posterior shad owing. The margins are slightly irregular. There was no blood flow to the mass. The mass appears to correlate to the nodular de nsity seen on the mammogram. The mass appears to represent a probable fibroadenoma however, a short-term six-month follow-up [facility] mogram and ultrasound are recommended to document stability. BI-RADS 3: PROBABLY BENIGN. RECOMMENDATION: 6 Month Follow-up Reading Location: [id number]
== END | disposition home or self-care (01) ==
LOC: OPUS 13:19
PROVIDERS: PCP Internal Medicine; Referring Provider Nurse Practitioner Women's Health; Visit Provider Nurse Practitioner Women's Health
DX: R92.8 Other abnormal and inconclusive findings on diagnostic imaging of breast (principal)
CPT/HCPCS: 76642